=== PATIENT | female | born 1995 | race Two or more races ===

== ENCOUNTER 2020-08-09 11:36 | Outpatient (REF) | payer OTHER, SELFPAY ==
[2020-08-09 12:26] LABS: MANUAL DIFF FLAG NO
[2020-08-09 12:39] LABS: Basophils Absolute Auto 0.1 X10*3/uL (0.0-0.2); Eosinophils Absolute Auto 0.1 X10*3/uL (0.0-0.4); Eosinophils Percent Auto 2.2 % (0-4); Hematocrit 39.3 % (37-47); Hemoglobin 12.7 g/dl (12.0-16.0); Imm Gran Abs Auto 0.01 X10*3/uL (0.00-0.03); Imm Gran Pct Auto 0.2 % (0.0-0.4); Lymphocytes Absolute Auto 2.2 X10*3/uL (1.2-4.9); Lymphocytes Percent Auto 34.7 % (20-40); Mean Corpuscular HGB Conc 32.3 g/dl (31.0-35.0); Mean Corpuscular Hemoglobin 27.8 pg (27.0-33.0); Mean Platelet Volume 10.9 fL (9.4-12.3); Monocytes Absolute Auto 0.4 X10*3/uL (0.1-1.2); Monocytes Percent Auto 5.9 % (2-11); Neutrophils Absolute Auto 3.5 X10*3/uL (2.0-8.3); Platelet Count 283 X10*3/uL (160-400); Red Blood Count 4.57 X10*6/uL (4.20-5.50); White Blood Count 6.3 X10*3/uL (4.8-10.8)
[2020-08-09 12:55] LABS: Anion Gap 13 (12-20); Blood Urea Nitrogen 10 mg/dL (9-16); Calcium 8.9 mg/dL (8.4-10.2); Carbon Dioxide 27 mmol/L (22-29); Chloride 104 mmol/L (96-108); Cholesterol 166 mg/dL; Estimated Glomerular Filt Rate > 60; Glucose Fasting 81 mg/dL (60-99); HDL Cholesterol 43 mg/dL; LDL Cholesterol Calculated 110 mg/dl; Potassium 4.5 mmol/l (3.3-5.1); Sodium 139 mmol/L (135-145); Triglycerides 69 mg/dL
== END 2020-08-09 11:37 | disposition home or self-care (01) ==
LOC: HO.LAB 11:36
PROVIDERS: PCP Nurse Practitioner Family; Visit Provider Nurse Practitioner Family
DX: Z00.00 Encounter for general adult medical examination without abnormal findings (principal)
CPT/HCPCS: 36415; 80048; 80061; 85025

== ENCOUNTER 2020-08-27 09:05 | Outpatient (REF) | payer OTHER, SELFPAY ==
[2020-08-27 10:14] LABS: MANUAL DIFF FLAG NO
[2020-08-27 10:20] LABS: Basophils Absolute Auto 0.1 X10*3/uL (0.0-0.2); Basophils Percent Auto 1.1 % (0-2); Eosinophils Absolute Auto 0.1 X10*3/uL (0.0-0.4); Eosinophils Percent Auto 2.1 % (0-4); Hemoglobin 12.8 g/dl (12.0-16.0); Imm Gran Abs Auto 0.01 X10*3/uL (0.00-0.03); Imm Gran Pct Auto 0.2 % (0.0-0.4); Lymphocytes Absolute Auto 1.8 X10*3/uL (1.2-4.9); Lymphocytes Percent Auto 31.4 % (20-40); Mean Corpuscular Hemoglobin 27.9 pg (27.0-33.0); Mean Corpuscular Volume 87.1 fL (80-98); Mean Platelet Volume 11.3 fL (9.4-12.3); Monocytes Absolute Auto 0.3 X10*3/uL (0.1-1.2); Monocytes Percent Auto 5.3 % (2-11); Neutrophils Absolute Auto 3.4 X10*3/uL (2.0-8.3); Neutrophils Percent Auto 59.9 % (45-73); Platelet Count 253 X10*3/uL (160-400); Red Blood Count 4.59 X10*6/uL (4.20-5.50); Red Cell Distribution Width 12.8 % (11.0-16.0); White Blood Count 5.6 X10*3/uL (4.8-10.8)
[2020-08-27 10:45] LABS: Alanine Aminotransferase 11 U/L (0-31); Albumin Level 4.6 g/dL (3.5-5.0); Alkaline Phosphatase 85 U/L (39-117); Aspartate Amino Transferase 34 U/L (5-31); Bilirubin Direct < 0.2 mg/dL (0.0-0.5); Bilirubin Total 0.6 mg/dL (0.0-1.0); Cholesterol 169 mg/dL; HDL Cholesterol 46 mg/dL; LDL Cholesterol Calculated 113 mg/dl; Total Protein 7.3 g/dL (6.5-8.0); Triglycerides 51 mg/dL
== END 2020-08-27 09:06 | disposition home or self-care (01) ==
LOC: HO.LAB 09:05
PROVIDERS: PCP Internal Medicine; Visit Provider Nurse Practitioner Family
DX: Z00.00 Encounter for general adult medical examination without abnormal findings (principal)
CPT/HCPCS: 36415; 80061; 80076; 85025

== ENCOUNTER → 2020-09-03 11:46 | Outpatient (BNVA) | payer OTHER, SELFPAY | PROVIDERS: PCP Internal Medicine; Referring Provider Internal Medicine; Visit Provider Internal Medicine Gastroenterology | DX: R94.5 Abnormal results of liver function studies (principal) | CPT/HCPCS: 99211 ==

== ENCOUNTER 2020-09-28 10:14 | Outpatient (REF) | payer OTHER, SELFPAY ==
--- NOTE | 2020-09-28 10:19 | US_ITS ---
EXAMINATION: US ABDOMEN LIMITED CLINICAL INFORMATION: Abnormal results of liver function studies. COMPARISON: Ultrasound abdomen with elastography 07/17/2019. Ultrasound abdomen 11/22/2018. CT abdomen and pelvis 10/22/2016. TECHNIQUE: Real-time imaging of the right upper quadrant abdominal viscera. FINDINGS: PANCREAS: Normal. LIVER: Normal. The liver is normal in size. The liver contour is normal. Parenchymal echogenicity is normal. No focal hepatic lesion. There is no intrahepatic biliary duct dilatation seen. GALLBLADDER: Normal. The gallbladder is physiologically distended without evidence of stones, sludge, polyps, wall thickening or pericholecystic fluid. COMMON BILE DUCT: Normal in caliber measuring 0.4 cm in diameter. RIGHT KIDNEY: Normal. No hydronephrosis. No renal calculi or focal parenchymal lesions. The kidney measures 10.3 cm in maximum dimension. FREE FLUID: None. US/US abdomen limited IMPRESSION: Unremarkable exam.
== END 2020-09-28 10:15 | disposition home or self-care (01) ==
LOC: HO.US 10:14
PROVIDERS: PCP Internal Medicine; Visit Provider Internal Medicine Gastroenterology
DX: R94.5 Abnormal results of liver function studies (principal)
CPT/HCPCS: 76705

== ENCOUNTER 2020-10-18 09:34 | Outpatient (REF) | payer OTHER, SELFPAY ==
[2020-10-18 10:11] LABS: MANUAL DIFF FLAG NO
[2020-10-18 10:12] LABS: Basophils Absolute Auto 0.1 X10*3/uL (0.0-0.2); Basophils Percent Auto 0.7 % (0-2); Eosinophils Absolute Auto 0.1 X10*3/uL (0.0-0.4); Eosinophils Percent Auto 1.3 % (0-4); Hematocrit 40.6 % (37-47); Imm Gran Abs Auto 0.02 X10*3/uL (0.00-0.03); Imm Gran Pct Auto 0.3 % (0.0-0.4); Lymphocytes Absolute Auto 1.9 X10*3/uL (1.2-4.9); Lymphocytes Percent Auto 26.8 % (20-40); Mean Corpuscular Hemoglobin 27.4 pg (27.0-33.0); Mean Corpuscular Volume 85.5 fL (80-98); Monocytes Absolute Auto 0.4 X10*3/uL (0.1-1.2); Monocytes Percent Auto 5.6 % (2-11); Neutrophils Absolute Auto 4.6 X10*3/uL (2.0-8.3); Neutrophils Percent Auto 65.3 % (45-73); Platelet Count 265 X10*3/uL (160-400); Red Blood Count 4.75 X10*6/uL (4.20-5.50)
[2020-10-18 10:42] LABS: Cholesterol 137 mg/dL; HDL Cholesterol 38 mg/dL; LDL Cholesterol Calculated 78 mg/dl; Triglycerides 106 mg/dL
[2020-10-18 11:45] LABS: Reflex LDLD? No
== END 2020-10-18 09:35 | disposition home or self-care (01) ==
LOC: HO.LAB 09:34
PROVIDERS: PCP Internal Medicine; Visit Provider Nurse Practitioner Family
DX: Z00.00 Encounter for general adult medical examination without abnormal findings (principal); Z13.220 Encounter for screening for lipoid disorders
CPT/HCPCS: 36415; 80061; 85025

== ENCOUNTER → 2020-12-10 09:48 | Outpatient (BNVA) | payer OTHER, SELFPAY | PROVIDERS: PCP Internal Medicine; Visit Provider Internal Medicine Gastroenterology ==

== ENCOUNTER → 2021-04-15 10:58 | Outpatient (BNVA) | payer OTHER, SELFPAY | PROVIDERS: PCP Internal Medicine; Visit Provider Internal Medicine Gastroenterology ==

== ENCOUNTER 2021-04-20 12:52 | Outpatient (REF) | payer OTHER, SELFPAY ==
--- NOTE | 2021-04-20 12:58 | EEG_ITS ---
This is a 16-channel EEG with an EKG lead. The patient is reported awake during the tracing. Background EEG rhythm is about 10 Hz, 5 to 70 mcV posteriorly, and lower amplitude fast anteriorly. Intermittently, patient transitioned into drowsiness with disappearance of symmetric alpha and low amplitude mixed theta, beta rhythm. No definite asymmetry or paroxysmal tendency is noted. No definite focality is noted. Photic stimulation does not produce any significant abnormality. Hyperventilation is not performed. Cardiac lead does not reveal any significant abnormality. IMPRESSION: No significant abnormality noted on this EEG. MD CECIL Infante/LIAT / [id number]
== END 2021-04-20 12:53 | disposition home or self-care (01) ==
LOC: HO.NEURO 12:52
PROVIDERS: PCP Internal Medicine; Visit Provider Internal Medicine
DX: R55 Syncope and collapse (principal)
CPT/HCPCS: 95816

== ENCOUNTER 2021-04-25 10:23 | Outpatient (REF) | payer OTHER, SELFPAY ==
[2021-04-25 12:01] LABS: MANUAL DIFF FLAG NO
[2021-04-25 12:18] LABS: Basophils Percent Auto 0.9 % (0-2); Eosinophils Absolute Auto 0.1 X10*3/uL (0.0-0.4); Eosinophils Percent Auto 2.5 % (0-4); Hematocrit 39.5 % (37-47); Hemoglobin 12.5 g/dl (12.0-16.0); Lymphocytes Absolute Auto 1.6 X10*3/uL (1.2-4.9); Lymphocytes Percent Auto 37.7 % (20-40); Mean Corpuscular HGB Conc 31.6 g/dl (31.0-35.0); Mean Corpuscular Hemoglobin 27.4 pg (27.0-33.0); Mean Corpuscular Volume 86.4 fL (80-98); Monocytes Absolute Auto 0.3 X10*3/uL (0.1-1.2); Monocytes Percent Auto 5.8 % (2-11); Neutrophils Absolute Auto 2.3 X10*3/uL (2.0-8.3); Neutrophils Percent Auto 53.1 % (45-73); Platelet Count 251 X10*3/uL (160-400); Red Blood Count 4.57 X10*6/uL (4.20-5.50); White Blood Count 4.3 X10*3/uL (4.8-10.8)
[2021-04-25 12:22] LABS: INTERNATIONAL NORM RATIO 1.1 (0.9-1.1); Prothrombin Time 12.6 SEC (10.8-13.0)
[2021-04-25 12:44] LABS: Alanine Aminotransferase 9 U/L (0-31); Albumin Level 4.3 g/dL (3.5-5.0); Alkaline Phosphatase 72 U/L (39-117); Anion Gap 8 (12-20); Aspartate Amino Transferase 33 U/L (5-31); Bilirubin Total 0.4 mg/dL (0.0-1.0); Blood Urea Nitrogen 13 mg/dL (9-16); Calcium 8.9 mg/dL (8.4-10.2); Carbon Dioxide 28 mmol/L (22-29); Chloride 106 mmol/L (96-108); Estimated Glomerular Filt Rate > 60; Glucose Random 88 mg/dL (60-115); Potassium 4.5 mmol/L (3.3-5.1); Sodium 137 mmol/L (135-145)
[2021-04-25 13:05] LABS: Ferritin 26 ng/mL (10-122)
[2021-04-29 21:22] LABS: Transglutaminase Ab IgG 1 U/mL; Transglutaminase IgA 1 U/mL
== END 2021-04-25 10:24 | disposition home or self-care (01) ==
LOC: HO.LAB 10:23
PROVIDERS: Absent Provider Internal Medicine Gastroenterology; PCP Internal Medicine; Referring Provider Internal Medicine; Visit Provider Internal Medicine
DX: G89.29 Other chronic pain (principal); R10.33 Periumbilical pain; R94.5 Abnormal results of liver function studies; K75.81 Nonalcoholic steatohepatitis (NASH); R55 Syncope and collapse; I95.0 Idiopathic hypotension
CPT/HCPCS: 36415; 80053; 82728; 83516; 85025; 85610; 93005; 99202

== ENCOUNTER 2021-05-03 09:16 | Outpatient (REF) | payer OTHER, SELFPAY ==
--- NOTE | ~2021-05-03 | CT_ITS ---
EXAMINATION: CT HEAD WITHOUT CONTRAST CLINICAL INFORMATION: Syncope and collapse COMPARISON: None TECHNIQUE: Contiguous axial imaging was performed from the skull base to vertex without intravenous administration of contrast. This CT examination was performed using dose optimization techniques as appropriate, variously including the following: *Automated exposure control *Adjustment of mA and/or kV according to patient size (this includes techniques or standardized protocols for targeted exams where dose is matched to indication/reason for exam; i.e. extremities or head) *Use of iterative reconstruction technique DLP: 659 mGy-cm FINDINGS: There is no evidence of acute intracranial hemorrhage or territorial infarction. No abnormal mass effect or midline shift is seen. Phan to white matter differentiation is well preserved. No extra-axial fluid collections are identified. The ventricles are normal in size. There is no abnormal attenuation within the brain parenchyma. The osseous structures and soft tissues are normal. The mastoid air cells and visualized portions of the paranasal sinuses are well aerated. CT/CT head/brain wo con IMPRESSION: No acute intracranial pathology.
--- NOTE | ~2021-05-03 | US_ITS ---
EXAMINATION: US EXTRACRANIAL CAROTID DUPLEX, BILATERAL CLINICAL INFORMATION: Syncope and collapse COMPARISON: None TECHNIQUE: Real-time ultrasound and Doppler techniques (integrating B-mode 2-D vascular images, Doppler spectral analysis and color-flow Doppler imaging) were utilized to interrogate the extracranial carotid arteries, the vertebral arteries and proximal subclavian arteries bilaterally. The degree of stenosis is determined by criteria similar to NASCET. FINDINGS: Right Side: 1. There is no atherosclerotic plaque seen in the bifurcation/proximal ICA region. 2. The common carotid artery PSV proximally is 118 cm/s and distally 101 cm/s. 3. The proximal internal carotid artery velocities are 100 cm/s systolic and 38 cm/s diastolic. 4. The proximal external carotid artery PSV is 97 cm/s. 5. The vertebral artery shows antegrade flow. 6. The subclavian artery waveforms are normal. Left Side: 1. There is no atherosclerotic plaque seen in the bifurcation/proximal ICA region. 2. The common carotid artery PSV proximally is 125 cm/s and distally distal 117 cm/s. 3. The proximal internal carotid artery velocities are 107 cm/s systolic and 39 cm/s diastolic. 4. The proximal external carotid artery PSV is 86 cm/s. 5. The vertebral artery shows antegrade flow. 6. The subclavian artery waveforms are normal. US/US carotid duplex BI IMPRESSION: Normal exam.
--- NOTE | 2021-05-03 09:57 | CA_ITS ---
Transthoracic Echocardiogram Patient (Last, First, Middle): Ora Hernandez, Gender: Female Date of : 1995 Age: 25 Procedure Date: 05/03/2021 Procedure Type: Transthoracic Echocardiogram Location: OP Height: 160.02 cm Weight: 56.7 kg BSA: 1.58 m2 Heart Rate: bpm BP: 100 / 60 mmHg Vacuum Tester Cans: STEWART Referring MD: Casandra Mars MD Symptoms: R55 - Syncope and collapse Study Quality: Good ECG Rhythm: Sinus Conclusions: - The left ventricular systolic function is normal. The visually estimated ejection fraction is between 55-60%. - No obvious valvular pathology seen on this study. Findings Left Ventricle Normal left ventricular cavity size. There is normal left ventricular wall thickness. The left ventricular systolic function is normal. The visually estimated ejection fraction is between 55-60%. There is no evidence of regional wall motion abnormalities. Diastolic function is normal for age. Right Ventricle Normal right ventricular cavity size and systolic function. Atria Both atria are normal in size. Aortic Valve There is a normal trileaflet aortic valve. There is no aortic valve stenosis. There is no aortic valve regurgitation. Mitral Valve The mitral valve appears normal. There is trace mitral valve regurgitation. There is no mitral valve stenosis. Pulmonic Valve The pulmonic valve was not well visualized. Tricuspid Valve Normal tricuspid valve structure. There is trace tricuspid valve regurgitation. The pulmonary artery systolic pressure is normal. Great Vessels The aortic annulus, sinuses of valsalva, and asc aorta are normal in size. Venous The inferior vena cava is normal in size and collapses greater than 50% with inspiration. Pericardium/Pleural There is no evidence of pericardial effusion. Prior Study Comparison No prior study available for comparison. Recommendations, Care & Conclusions No obvious valvular pathology seen on this study. Measurements 2D Linear Measurements IVSd: 0.73 0.6-0.9/0.6-1.0 cm LVIDd: 4.58 3.9-5.3/4.2-5.9 cm LVIDd Index: 2.90 2.4-3.2/2.2-3.1 cm/m2 LVIDs: 3.01 2.0-3.6 cm LVPWd: 0.67 0.7-1.1 cm Ao Root: 2.30 2.1-3.5 cm LA Diam: 3.00 2.7-3.8/3.0-4.0 cm LAIDs Index: 1.90 1.5-2.3 cm/m2 LV Mass: 121.82 67-162/88-224 g LV Mass Index: 77.10 43-95/49-115 g/m2 LVOT Diam: 1.90 3.0+(-)1.3 cm 2D Systolic Function EF 4C: 65.60 >55% EF 2C: 64.40 >55% EF BiP: 66.40 >55% Mitral Valve MV Pk E: 0.97 MV PK A: 0.45 MV Decel Time: 188.00 E/A: 2.20 E'Lateral: 16.10 E'Medial: 11.60 E/E' Med: 8.30 E/E' Lat: 6.00 PHT: 55.00 MVA PHT: 4.00 Decel [place]: 5.15 Aortic Valve AoV Pk Myron: 1.11 AoV Pk Grad: 5.00 LVOT LVOT Pk Myron: 1.02 LVOT Mn Myron: 0.66 LVOT VTI: 0.20 LVOT Pk Grad: 4.00 LVOT Mn Grad: 2.00 LVOT Diam: 1.90 LVOT Area: 2.84 Diastolic Function MV Pk E: 0.97 MV Pk A: 0.45 E/A: 2.20 E'Medial: 11.60 E/E' Med: 8.30 E' Laterial: 16.10 E/E' Lat: 6.00 Tricuspid Valve TR Pk Myron: 2.21 TR Pk Grad: 20.00 RA Press: 3.00 RVSP: 23.00 Great Vessels Aorta Ao Root-2D: 2.30 2.0-3.7 cm Ao Asc: 2.00 2.1-3.4 cm Updated in Other Vendor System with Status of Final Alan Jaimes MD electronically signed on 05/03/2021 11:56:25 AM with status of Final
== END 2021-05-03 09:17 | disposition home or self-care (01) ==
LOC: HO.CT 09:16
PROVIDERS: Visit Provider Internal Medicine
DX: R55 Syncope and collapse (principal)
CPT/HCPCS: 70450; 93306; 93880

== ENCOUNTER → 2021-06-03 13:52 | Outpatient (REF) | payer OTHER, SELFPAY ==
--- NOTE | 2021-06-03 13:56 | ECG_ITS ---
Hook-up date: 2021-06-03 14:14:00 Duration: 47:59:00 Test Indications: SYNCOPE AND COLLAPSE Medications: 250744 QRS complexes * Ventricular ectopics which represent % of total QRS comp. * Supraventricular ectopics which represent % of total QRS comp. * Paced QRS complexs which represent % of total QRS comp. VENTRICULAR ECTOPY * Isolated * Bigeminal Cycles * Couplets * Runs * Beats in Runs * Beats LONGEST at * BPM at :: -- * Beats FASTEST at * BPM at :: -- SUPRAVENTRICULAR ECTOPY * Isolated * Couplets * Runs * Beats in Runs * Beats LONGEST at * BPM at :: -- * Beats FASTEST at * BPM at :: -- HEART RATES 57 MIN at 05:54:42 2021-06-04 80 AVG 141 MAX at 13:02:38 2021-06-04 LONGEST RR 1.2000 secs at 05:56:23 2021-06-04 S-T LEVELS Channel 1 - 128 mm at 14:14:00 2021-06-03 - 128 mm at 14:14:00 2021-06-03 Channel 2 - 128 mm at 14:14:00 2021-06-03 - 128 mm at 14:14:00 2021-06-03 Channel 3 - 128 mm at 03:33:31 -- - 128 mm at 03:33:31 Underlying rhythm is sinus; Average ventricular rate 80/min; range 57-141/min; About 22% of the time, rate >100/min; No significant ectopy or arrhythmias; Patient did not report any symptoms in the diary Referred By: Casandra Mars Overread By: JEFF DELA CRUZ
== END ==
LOC: HO.CARD 13:52
PROVIDERS: PCP Hospitalist; Visit Provider Internal Medicine
DX: R55 Syncope and collapse (principal)
CPT/HCPCS: 93225; 93226

== ENCOUNTER → 2021-07-12 10:22 | Outpatient (BNVA) | payer OTHER, SELFPAY | PROVIDERS: PCP Hospitalist; Referring Provider Hospitalist; Visit Provider Internal Medicine | DX: I95.0 Idiopathic hypotension (principal); R55 Syncope and collapse | CPT/HCPCS: 99212 ==

== ENCOUNTER → 2021-10-11 10:26 | Outpatient (BNVA) | payer OTHER, SELFPAY | PROVIDERS: PCP Internal Medicine; Visit Provider Internal Medicine Gastroenterology ==

== ENCOUNTER 2021-10-25 10:09 | Outpatient (REF) | payer OTHER, SELFPAY ==
[2021-10-25 10:29] LABS: MANUAL DIFF FLAG NO
[2021-10-25 10:32] LABS: Basophils Percent Auto 0.8 % (0-2); Eosinophils Absolute Auto 0.1 X10*3/uL (0.0-0.4); Eosinophils Percent Auto 2.5 % (0-4); Hematocrit 38.7 % (37.0-47.0); Hemoglobin 12.4 g/dl (12.0-16.0); Imm Gran Abs Auto 0.01 X10*3/uL (0.00-0.03); Imm Gran Pct Auto 0.2 % (0.0-0.4); Lymphocytes Absolute Auto 1.5 X10*3/uL (1.2-4.9); Lymphocytes Percent Auto 28.8 % (20-40); Mean Corpuscular Hemoglobin 27.9 pg (27.0-33.0); Mean Corpuscular Volume 87.2 fL (80.0-98.0); Monocytes Absolute Auto 0.3 X10*3/uL (0.1-1.2); Monocytes Percent Auto 5.1 % (2-11); Neutrophils Absolute Auto 3.3 x10*3/uL (2.0-8.3); Neutrophils Percent Auto 62.6 % (45-73); Platelet Count 236 X10*3/uL (160-400); Red Blood Count 4.44 X10*6/uL (4.20-5.50); Red Cell Distribution Width 13.2 % (11.0-16.0); White Blood Count 5.3 X10*3/uL (4.8-10.8)
[2021-10-25 12:38] LABS: Alanine Aminotransferase 12 U/L (0-31); Albumin Level 4.4 g/dL (3.5-5.0); Alkaline Phosphatase 67 U/L (39-117); Anion Gap 9 (12-20); Aspartate Amino Transferase 33 U/L (5-31); Bilirubin Total 0.3 mg/dL (0.0-1.0); Blood Urea Nitrogen 11 mg/dL (9-16); Calcium 9.1 mg/dL (8.4-10.2); Carbon Dioxide 25 mmol/L (22-29); Chloride 107 mmol/L (96-108); Estimated Glomerular Filt Rate > 60; Glucose Random 102 mg/dL (60-115); Potassium 4.4 mmol/L (3.3-5.1); Sodium 137 mmol/L (135-145); Total Protein 7.1 g/dL (6.5-8.0)
[2021-10-27 11:36] LABS: Alpha 1 Anti-trypsin 142 mg/dL (83-199); Ceruloplasmin 31 mg/dL (18-53); Immunoglobulin G 1132 mg/dL (600-1640)
[2021-10-27 15:22] LABS: Transglutaminase Ab IgG <1.0 U/mL; Transglutaminase IgA <1.0 U/mL
[2021-10-28 22:01] LABS: Smooth Muscle Antibody <20 U (<20)
[2021-10-30 13:27] LABS: Liver Kidney Microsomal Ab <=20.0 U (<=20.0)
[2021-10-31 11:16] LABS: Vitamin A 31 mcg/dL (38-98)
[2021-11-01 13:27] LABS: Soluble Liver Ag Autoantibody <20.1 U (0.0-20.0)
[2021-11-01 13:51] LABS: Aldolase 2.7 U/L (<=8.1)
[2021-11-01 14:11] LABS: Vitamin C 0.6 mg/dL (0.3-2.7)
== END 2021-10-25 10:10 | disposition home or self-care (01) ==
LOC: HO.LAB 10:09
PROVIDERS: PCP Internal Medicine; Visit Provider Internal Medicine Gastroenterology
DX: R94.5 Abnormal results of liver function studies (principal); K75.81 Nonalcoholic steatohepatitis (NASH); K52.839 Microscopic colitis, unspecified; G89.29 Other chronic pain; R10.33 Periumbilical pain; Z11.1 Encounter for screening for respiratory tuberculosis
CPT/HCPCS: 36415; 80053; 82085; 82103; 82180; 82390; 82550; 82784; 83516; 83520; 84590; 85025; 86255; 86376

== ENCOUNTER 2022-01-22 13:08 | Emergency (ER) | payer OTHER, SELFPAY ==
--- NOTE | ~2022-01-22 | XR_ITS ---
EXAMINATION: XR CHEST CLINICAL INFORMATION: Cough and chest wall pain COMPARISON: None TECHNIQUE: 2 views of the chest were obtained. FINDINGS: No significant abnormality is noted involving the heart, lungs, mediastinum, bony thorax or soft tissues. XR/XR chest 2V IMPRESSION: Unremarkable examination.
[2022-01-22 13:43] VITALS: BP 109/63; PULSE 90; RESP 16; TEMP 37.2; O2SAT 99; BMI 22.1
[2022-01-22 14:03] LABS: COVID-19 Test Negative (Negative); IDNOW Serial# 16C4AD1C
[2022-01-22 14:06] LABS: IDNOW Serial# 08D9AD1C; Influenza A Negative (Negative); Influenza B2 Negative (Negative); Strep A Nucleic Acid Negative (Negative)
--- NOTE | 2022-01-22 14:24 | ED_ITS ---
HPI - URI/Sore Throat General Chief Complaint: Upper Respiratory Symptoms Stated Complaint: Sore throat/headache Time Seen by Provider: 01/22/22 13:33 Source: patient and family Mode of arrival: ambulatory Limitations: language barrier (Malagasy Speaking) History of Present Illness HPI Narrative: 26-year-old female with a past medical history of idiopathic hypotension, abnormal LFTs and migraine headaches presenting to the ED with URI symptoms since Sunday/ where she was seen at [facility] for sore throat reports that she was given 500 mg of amoxicillin b.i.d. and she is taking as prescribed although she reports her sore throat is better and now she has been having intermittent migraine headaches, increased nasal congestion/ rhinorrhea and sinus pressure pain, dry cough and body aches. She reports associated chills. She reports mom had similar symptoms approximately a week ago. She denies any measured fevers, dizziness, neck pain / stiffness, changes in vision, shortness of breath, dyspnea on exertion, orthopnea, palpitations, chest pain, paresthesias, nausea/vomiting /diarrhea constipation or abdominal pain, lower extremity edema or calf tenderness, recent travel or any other symptoms complaints or concerns at this time. MD elicited complaint: cough, rhinorrhea, nasal congestion and sinus pain Onset (ago): day(s) ( Past few days worse today) Consistency: constant and progressively worsening Severity: moderate Description of mucous: clear, watery and yellow Able to tolerate fluids by mouth: Yes Exacerbating factors: nothing Relieving factors: nothing Context: sick contacts Associated symptoms: chills, myalgias, headache, rhinorrhea, nasal congestion and cough Treatments prior to arrival: none Related Data Previous Rx's Medication Instructions Recorded amitriptyline 10 mg tablet 10 mg PO BEDTIME 90 Days #90 tab 09/13/21 sumatriptan succinate 50 mg tablet 50 mg PO Q2-4H PRN 30 Days #9 tab 09/13/21 albuterol sulfate 90 mcg/actuation 1 inh INHALATION QID PRN #8.5 g 01/22/22 aerosol inhaler amoxicillin 875 mg-potassium 1 tab PO BID 10 Days #20 tab 01/22/22 clavulanate 125 mg tablet codeine 10 mg-guaifenesin 100 mg/5 5 ml PO Q6H PRN #120 ml 01/22/22 mL oral liquid (Guaifenesin AC) cyclobenzaprine 10 mg tablet 10 mg PO Q8H PRN #14 tab 01/22/22 prednisone 20 mg tablet 40 mg PO DAILY 5 Days #10 tab 01/22/22 Allergies Allergy/AdvReac Type Severity Reaction Status Date / Time No Known Allergies Allergy Verified 10/11/21 10:27 [No Known Allergies*] Review of Systems Review of Systems: Constitutional : No Weight loss, No Fever, + Chills, No Night Sweats, + Fatigue, + Malaise ENT/Mouth : No Hearing loss, No Ear Pain, + Nasal Congestion, + Sinus Pain, No Hoarseness, No sore throat, + Rhinorrhea, No Swallowing Difficulty Eyes: No Eye Pain, No Swelling, No Redness, No Foreign Body, No Discharge, No Vision Changes Cardiovascular : No Chest Pain, No SOB, No Dyspnea on Exertion, No Orthopnea, No Edema, No Palpitations Respiratory : + Cough, No Sputum, No Wheezing, No Smoke Exposure, No Dyspnea Gastrointestinal : No Nausea, No Vomiting, No Diarrhea, No Constipation, No abdominal Pain, No Hematochezia, No Melena Genitourinary : no irregular bleeding, No Dysuria, No Urinary Frequency, No Hematuria, No Urinary Incontinence, No Urgency, No Flank Pain, No Urinary Flow Changes, No Hesitancy Musculoskeletal : No joint pain, + Myalgias, No Joint Swelling Skin : No Skin Lesions, No rash Neuro : No Weakness, No Numbness, No Paresthesias, No Loss of Consciousness, No Dizziness, No Headache Psych : No Anxiety/Panic, No Depression, No SI/HI/AH/VH, No Social Issues, Heme/Lymph: No Bruising, No Bleeding,No Lymphadenopathy Endocrine : No Polyuria, No Polydipsia, No Temperature Intolerance Yes all other systems are reviewed and are negative [facility] Past Medical History Attestation statement: The following information was validated with the patient. Medical History Left ear pain Migraine Physical exam Syncope Surgical History History of section History of tubal ligation Family History Family History Father Asthma Mother No problems noted. Paternal Uncle Colon cancer Social History Social History Household Members: Children Housing: Apartment Alcohol intake: never Patient Tobacco Use Status: Never used Tobacco e-Cigarette/Vaping Use: Never Used Second Hand Smoke Exposure: No Advance Directives: No Advance Directives Information Provided: Yes Patient : No service: No Current occupational status: employed Current occupational exposures/hazards: No Physical Exam Vital Signs: Vital Signs: Last Vital Signs Temp 98.9 F 01/22/22 13:43 Pulse 90 01/22/22 13:43 Resp 16 01/22/22 13:43 BP 109/63 01/22/22 13:43 Pulse Ox 99 01/22/22 13:43 BMI result Body Mass Index 22.1 vital signs have been reviewed as normal and appeared to be correct. Blood pressure normal. Heart rate normal. Respiration rate normal. Temperature normal. Oxygen saturation normal. Appearance: Alert. Oriented X3. No acute distress. Head: Normal external exam. Normocephalic. Atraumatic. Eyes: PERRLA. EOMI. Conjunctiva and sclera normal. Eyelids normal. ENT: EAC normal. TM's Normal. Pharynx normal. Uvula midline. Moist mucous membranes. patient with sinus pressure pain. No lesions/ulcerations or masses noted on the tongue. Normal voice. No trismus noted. No drooling noted. No muffled voice noted. Neck: Normal inspection. Neck supple. FROM. No adenopathy. Thyroid Normal. No tracheal deviation noted. No crepitus is noted. No meningeal signs. No neck mass noted. No signs of trauma noted. CVS: Normal heart rate and rhythm. Heart sound normal. Pulses normal throughout. No murmurs/rales/gallops. Respiratory: No respiratory distress. Painless inspiration. Breath sounds normal. No wheezes/rales/rhonchi noted. Chest nontender. No crepitus is noted. No signs of trauma noted. No accessory muscle usage noted or decreased air movement noted. No signs of trauma. Abdomen: Soft and nontender. Bowel sounds normal in all 4 quadrants. No distention noted. No organomegaly noted. No visible injury noted. Back: No CVA tenderness. Full range of motion noted. Nontender. No signs of trauma. Patient neuro intact bilaterally and distally on all 4 extremities. Patient's reflexes intact bilaterally and distally on all 4 extremities. No rashes/lesion/induration/fluctuance or signs of infection noted. Skin: Skin warm and dry. Normal skin color. Normal skin turgor. No rashes/lesions/lacerations noted. Extremities: No lower extremity edema. No calf tenderness is noted. Extremities exhibit normal range of motion and nontender. Neuro: Oriented X 3. No motor deficit. No sensory deficit. Reflexes normal. Normal steady gait. No focal neuro deficits noted. CN's II-XII intact bilaterally? Vascular: + radial pulses/+ 2 distal pedal pulses/+2 dorsalis pedis b/l. Normal cap refill. No cyanosis noted to upper extremity nails and lower extremity toes nails. Course Course Course Narrative: 26-year-old female with a past medical history of idiopathic hypotension, abnormal LFTs and migraine headaches presenting to the ED with URI symptoms since Sunday/ where she was seen at [facility] for sore throat reports that she was given 500 mg of amoxicillin b.i.d. and she is taking as prescribed although she reports her sore throat is better and now she has been having intermittent migraine headaches, increased nasal congestion/ rhinorrhea and sinus pressure pain, dry cough and body aches. She reports associated chills. She reports mom had similar symptoms approximately a week ago. Patient negative for COVID/fl and strep. Chest x-ray negative. Patient most likely sinusitis/ bronchitis. Will DC home with different antibiotics and symptomatic treatment instructions return if any new or worsening symptoms to follow up with primary care provider. Patient understands agrees with this plan. MDM - URI/Sore Throat Medical Records Attestation: I reviewed the patient's medical records. Lab Data Attestation: I reviewed the patient's lab results. Labs: Lab Results 01/22/22 01/22/22 01/22/22 Range/Units 13:41 13:41 13:41 COVID-19 (JIMMY) Negative (Negative) COVID-19 Clin Com See Note Influenza Type A ([place]) Negative (Negative) Influenza Type B ([place]) Negative (Negative) Influenza A & B Note See Note S. pyogenes GrpA [place] Negative (Negative) Imaging Data Chest x-ray: Attestation: I personally reviewed and interpreted this imaging study as follows: Radiologist's impression: FINDINGS: No significant abnormality is noted involving the heart, lungs, mediastinum, bony thorax or soft tissues. XR/XR chest 2V IMPRESSION: Unremarkable examination. Discharge Plan Discharge Clinical Impression: Sinusitis, Bronchitis Patient Disposition: Home, Self-Care Instructions: Sinusitis (ED), Acute Bronchitis (ED) Prescriptions: New cyclobenzaprine 10 mg tablet 10 mg PO Q8H PRN (Reason: Muscle spasm) Qty: 14 0RF codeine-guaifenesin [Guaifenesin AC] 10-100 mg/5 mL liquid 5 ml PO Q6H PRN (Reason: cold symptoms) Qty: 120 0RF albuterol sulfate 90 mcg/actuation HFA aerosol inhaler 1 inh inhalation QID PRN (Reason: shortness of breath or wheezing) Qty: 8.5 0RF prednisone 20 mg tablet 40 mg PO DAILY 5 Days Qty: 10 0RF amoxicillin-pot clavulanate 875-125 mg tablet 1 tab PO BID 10 Days Qty: 20 0RF No Action amitriptyline 10 mg tablet 10 mg PO BEDTIME 90 Days Qty: 90 1RF sumatriptan succinate 50 mg tablet 50 mg PO Q2-4H PRN (Reason: migraine headache) 30 Days Qty: 9 4RF Rx Instructions: do not exceed 4 doses per 24 hrs Referrals: Casandra Wilson MD [Primary Care Provider] - 2 days Stand Alone Forms: Work/School Release Print Language: Malagasy
[2022-01-22] MEDS: guaiFEN/Codeine SF 200/20/10ML 10 ML LIQUID PO (14:31)
[2022-01-22] MEDS: predniSONE 20 MG TABLET 60 MG PO (14:31)
[2022-01-22] MEDS: Albuterol Sulfate 90 MCG 8 GM INHALER 2 PUFF INHALE (14:38)
[2022-01-22 14:39] VITALS: PULSE 90; RESP 20; O2SAT 99
[2022-01-22] MEDS: Ibuprofen 800 MG TABLET PO (14:44)
== END 2022-01-22 14:47 | disposition home or self-care (01) ==
PROVIDERS: Physician Assistant Medical; Emergency Provider Emergency Medicine; PCP Internal Medicine
DX: J32.9 Chronic sinusitis, unspecified (principal); J40 Bronchitis, not specified as acute or chronic; M79.10 Myalgia, unspecified site; J02.8 Acute pharyngitis due to other specified organisms; R51.9 Headache, unspecified; R05.9 Cough, unspecified; Z20.822 Contact with and (suspected) exposure to COVID-19; Z79.899 Other long term (current) drug therapy
CPT/HCPCS: 71046; 87502; 87635; 87651; 94640; 94664; 99283

== ENCOUNTER 2022-03-05 12:19 | Emergency (ER) | payer OTHER, SELFPAY ==
[2022-03-05 12:20] VITALS: BP 108/63; PULSE 109; RESP 19; TEMP 37.2; O2SAT 99; BMI 23.0
--- NOTE | 2022-03-05 12:40 | ED_ITS ---
HPI - URI/Sore Throat General Chief Complaint: Fever Stated Complaint: Fever/Body aches/Sore throat Time Seen by Provider: 03/05/22 12:29 Source: patient Mode of arrival: ambulatory Limitations: no limitations History of Present Illness HPI Narrative: Patient presents emergency department for evaluation of fever, T-max 102 degrees yesterday night, body aches, sore throat. Symptom onset was 1 day ago. Reports that her child is ill with similar symptoms. She has tried taking DayQuil with some relief of her symptoms. She has not been vaccinated for influenza. She has received 2 doses of [employer] vaccine for COVID-19. Denies nasal congestion, cough, shortness of breath, difficulty breathing, chest pain, palpitations, nausea, vomiting, abdominal pain, dysuria, generalized weakness, possibility of . MD elicited complaint: fever and sore throat Onset (ago): day(s) Consistency: constant Severity: mild Able to tolerate fluids by mouth: Yes Exacerbating factors: swallowing Related Data Previous Rx's Medication Instructions Recorded albuterol sulfate 90 mcg/actuation 1 inh INHALATION QID PRN #8.5 g 01/22/22 aerosol inhaler amitriptyline 10 mg tablet 10 mg PO BEDTIME 90 Days #90 tab 01/22/22 amoxicillin 875 mg-potassium 1 tab PO BID 10 Days #20 tab 01/22/22 clavulanate 125 mg tablet codeine 10 mg-guaifenesin 100 mg/5 5 ml PO Q6H PRN #120 ml 01/22/22 mL oral liquid (Guaifenesin AC) cyclobenzaprine 10 mg tablet 10 mg PO Q8H PRN #14 tab 01/22/22 prednisone 20 mg tablet 40 mg PO DAILY 5 Days #10 tab 01/22/22 sumatriptan succinate 50 mg tablet 50 mg PO Q2-4H PRN 30 Days #9 tab 01/22/22 oseltamivir 75 mg capsule (Tamiflu) 75 mg PO Q12H 5 Days #10 cap 03/05/22 Allergies Allergy/AdvReac Type Severity Reaction Status Date / Time No Known Allergies Allergy Verified 01/26/22 09:39 [No Known Allergies*] Review of Systems Review of Systems: Constitutional: Positive fever. No weakness. No fatigue. Positive body aches ENT/ Mouth: No Ear Pain, No Nasal Congestion, positive sore throat, No Rhinorrhea, No Swallowing Difficulty Skin: No rash or itching. Cardiovascular: No chest pain. No palpitations. Respiratory: No shortness of breath. No cough. No sputum production. Gastrointestinal: No nausea, vomiting or diarrhea. No abdominal pain. Genitourinary: No burning micturition. No urinary frequency or incontinence. Neurologic: No headache. No dizziness. No syncope. Musculoskeletal: No muscle pain. No back pain. No joint pain or stiffness. Yes all other systems are reviewed and are negative [facility] Past Medical History Attestation statement: The following information was validated with the patient. Source: old records reviewed Medical History Acute bronchitis Hospital discharge follow-up Left ear pain Migraine Physical exam Syncope Surgical History History of section History of tubal ligation Family History Family History Father Asthma Mother No problems noted. Paternal Uncle Colon cancer Social History Social History Household Members: Children Housing: Apartment Alcohol intake: never Patient Tobacco Use Status: Never used Tobacco e-Cigarette/Vaping Use: Never Used Second Hand Smoke Exposure: No Advance Directives: No Advance Directives Information Provided: No Patient : No service: No Current occupational status: employed Current occupational exposures/hazards: No Cognitive needs: No Hearing needs: No Vision needs: No Physical Exam Vital Signs: Vital Signs: Last Vital Signs Temp 99 F 03/05/22 12:20 Pulse 109 H 03/05/22 12:20 Resp 19 03/05/22 12:20 BP 108/63 03/05/22 12:20 Pulse Ox 99 03/05/22 12:20 BMI result Body Mass Index 23.0 Vital signs have been reviewed as normal and appeared to be correct. Blood pressure normal.? Tachycardia.? Respiration rate normal. Temperature normal.? Oxygen saturation normal. Appearance: Alert.?Oriented to person, place and time. No acute distress.?Normal affect. Eyes: Pupils equal, round and reactive to light.? ENT: Pharynx erythematous, no exudate, no tonsillar hypertrophy. Neck: Normal inspection.? Neck supple.?? CVS: Heart sounds normal. Normal heart rate and rhythm.? Pulses normal.?? Respiratory: No respiratory distress.? Lung sounds clear to auscultation bilaterally?? Abdomen: Soft and non-tender. Normoactive bowel sounds.? Skin: Skin warm and dry.? Normal skin color.? Extremities: No lower extremity edema. Neuro: Moves all extremities spontaneously. Sensation intact bilaterally. Ambulates with normal steady gait. Course Course Course Narrative: Patient is a 26-year-old female presenting for evaluation upper respiratory symptoms with fever x2 days. Not consistent with peritonsillar abscess, retropharyngeal abscess, pneumonia. COVID-19 testing negative. Influenza testing positive. Strep testing negative. Symptoms are most consistent with influenza infection. Discussed plan of care for conservative treatment, rest, hydration, small frequent meals, Tylenol and ibuprofen as needed for fever pain, outpatient follow-up with primary care provider as needed, advised reasons return back to emergency department. All questions were answered patient was discharged home in stable condition. MDM - URI/Sore Throat Medical Records Attestation: I reviewed the patient's medical records. Lab Data Attestation: I reviewed the patient's lab results. Labs: Lab Results 03/05/22 03/05/22 03/05/22 Range/Units 12:29 12:29 12:46 COVID-19 (JIMMY) Negative (Negative) COVID-19 Clin Com See Note Influenza Type A ([place]) Positive A (Negative) Influenza Type B ([place]) Negative (Negative) Influenza A & B Note See Note S. pyogenes GrpA [place] Negative (Negative) Discharge Plan Discharge Clinical Impression: Influenza A Patient Disposition: Home, Self-Care Instructions: Influenza (ED) Additional Instructions: You were offered Tamiflu and accepted, a prescription was sent to your pharmacy. You may alternate between Tylenol and ibuprofen as needed for fever or pain. Be sure to rest. Stay well hydrated. Eat frequent small meals. Follow up with your primary care provider as needed. Denies current emergency department with any new or worsening symptoms or concerns. Prescriptions: New oseltamivir [Tamiflu] 75 mg capsule 75 mg PO Q12H 5 Days Qty: 10 0RF No Action amitriptyline 10 mg tablet 10 mg PO BEDTIME 90 Days Qty: 90 1RF sumatriptan succinate 50 mg tablet 50 mg PO Q2-4H PRN (Reason: migraine headache) 30 Days Qty: 9 4RF Rx Instructions: do not exceed 4 doses per 24 hrs cyclobenzaprine 10 mg tablet 10 mg PO Q8H PRN (Reason: Muscle spasm) Qty: 14 0RF codeine-guaifenesin [Guaifenesin AC] 10-100 mg/5 mL liquid 5 ml PO Q6H PRN (Reason: cold symptoms) Qty: 120 0RF albuterol sulfate 90 mcg/actuation HFA aerosol inhaler 1 inh inhalation QID PRN (Reason: shortness of breath or wheezing) Qty: 8.5 0RF prednisone 20 mg tablet 40 mg PO DAILY 5 Days Qty: 10 0RF amoxicillin-pot clavulanate 875-125 mg tablet 1 tab PO BID 10 Days Qty: 20 0RF Interventions: ED Discharge Assessment Last Done: 03/05/22 13:22 Discharge Date/Time: 03/05/22 13:23
[2022-03-05 12:50] LABS: COVID-19 Test Negative (Negative); IDNOW Serial# 16C4AD1C; Influenza A Positive (Negative); Influenza B2 Negative (Negative)
[2022-03-05 13:01] LABS: IDNOW Serial# 08D9AD1C; Strep A Nucleic Acid Negative (Negative)
== END 2022-03-05 13:23 | disposition home or self-care (01) ==
PROVIDERS: Nurse Practitioner Family; Emergency Provider Emergency Medicine; PCP Internal Medicine
DX: J10.1 Influenza due to other identified influenza virus with other respiratory manifestations (principal); R50.9 Fever, unspecified; M79.10 Myalgia, unspecified site; Z20.822 Contact with and (suspected) exposure to COVID-19; Z79.899 Other long term (current) drug therapy
CPT/HCPCS: 36415; 87502; 87635; 87651; 99283

== ENCOUNTER 2022-03-29 12:41 | Outpatient (REF) | payer OTHER, SELFPAY | END 2022-03-29 12:42 | disposition home or self-care (01) | LOC: HO.LAB 12:41 | PROVIDERS: PCP Internal Medicine; Visit Provider Advanced Practice Midwife | DX: Z01.419 Encounter for gynecological examination (general) (routine) without abnormal findings (principal) | CPT/HCPCS: 88142 ==

== ENCOUNTER 2022-04-03 11:49 | Outpatient (REF) | payer OTHER, SELFPAY ==
[2022-04-03 13:38] LABS: Alanine Aminotransferase 10 U/L (0-31); Albumin Level 4.4 g/dL (3.5-5.0); Alkaline Phosphatase 68 U/L (39-117); Anion Gap 12 (12-20); Aspartate Amino Transferase 32 U/L (5-31); Bilirubin Total 0.5 mg/dL (0.0-1.0); Blood Urea Nitrogen 9 mg/dL (9-16); Carbon Dioxide 26 mmol/L (22-29); Chloride 104 mmol/L (96-108); Estimated Glomerular Filt Rate > 60; Glucose Random 88 mg/dL (60-115); Potassium 4.2 mmol/L (3.3-5.1); Sodium 138 mmol/L (135-145)
== END 2022-04-03 11:50 | disposition home or self-care (01) ==
LOC: HO.LAB 11:49
PROVIDERS: PCP Internal Medicine; Visit Provider Internal Medicine Gastroenterology
DX: K75.81 Nonalcoholic steatohepatitis (NASH) (principal)
CPT/HCPCS: 36415; 80053

== ENCOUNTER 2022-07-02 10:17 | Emergency (ER) | payer OTHER, SELFPAY ==
[2022-07-02] VITALS (7 sets, daily range): BP systolic 91–100; BP diastolic 48–54; PULSE 77–116; RESP 14–17; TEMP 37.1–38; O2SAT 98–99; BMI 22.1
--- NOTE | ~2022-07-02 | XR_ITS ---
EXAMINATION: XR CHEST CLINICAL INFORMATION: Cough, fever COMPARISON: X-ray 01/22/2022 TECHNIQUE: Frontal view of the chest was obtained. FINDINGS: No significant abnormality is noted involving the heart, lungs, mediastinum, bony thorax or soft tissues. XR/XR chest 1V IMPRESSION: No evidence of acute pulmonary process.
[2022-07-02 11:09] LABS: COVID-19 Test Positive (Negative); IDNOW Serial# 16C4AD1C
--- NOTE | 2022-07-02 11:41 | ECG_ITS ---
Test Reason : DIZZY Blood Pressure : / mmHG Vent. Rate : 085 BPM Atrial Rate : 085 BPM P-R Int : 164 ms QRS Dur : 098 ms QT Int : 360 ms P-R-T Axes : 063 084 018 degrees QTc Int : 428 ms Normal sinus rhythm T wave abnormality, consider inferior ischemia Nonspecific ST abnormality Abnormal ECG No previous ECGs available Referred By: Crys Dwyer Electronically Signed By:NAV GRIJALVA
--- NOTE | 2022-07-02 11:42 | PC.NURSE ---
PT SITTING IN THE WR, WITNESSED SYNCOPAL EPISODE WITHOUT A FALL. PALE AND CLAMMY PLACED ON A STRETCHER, VSS. PT IS COVID+ TODAY, POC 113. PT IS AWAKE AND EVAL BY DR BARCENAS
--- NOTE | 2022-07-02 11:42 | ED.SYNCOPE ---
HPI - Syncope General Chief Complaint: Upper Respiratory Symptoms Stated Complaint: headache, body ache Time Seen by Provider: 07/02/22 11:40 Source: patient and family Mode of arrival: ambulatory Limitations: no limitations History of Present Illness HPI narrative: 26 yo female with hx of bronchitis, 2 COVID vaccines reports two days of cough, fevers, nausea/vomiting came to ED when she presented to the waiting room she felt very hot and weak her spouse caught her and she had syncopal episode in front of staff. Patient rebounding quickly. MD complaint: loss of consciousness and collapsed Onset (ago): minute(s) (syncope in waiting room) Duration of episode: 30 -: second(s) Prodromal symptoms: lightheaded Witnessed: Yes - by Bystander Context: standing up and recent illness Injuries sustained associated with event: none Current symptoms: back to baseline and nausea Treatments prior to arrival: none Related Data Previous Rx's Medication Instructions Recorded amitriptyline 10 mg tablet 10 mg PO BEDTIME 90 days #90 tabs 01/22/22 meloxicam 15 mg tablet 15 mg PO DAILY #14 tabs 04/26/22 midodrine 2.5 mg tablet 2.5 mg PO BID PRN low blood 07/02/22 pressure #30 tabs ondansetron 4 mg disintegrating 4 mg PO Q8H PRN nausea and 07/02/22 tablet vomiting #20 tabs Allergies Allergy/AdvReac Type Severity Reaction Status Date / Time No Known Allergies Allergy Verified 04/26/22 16:42 [No Known Allergies*] Review of Systems Review of Systems: Constitutional : No Weight loss, pos Fever, pos Chills ENT/Mouth : No sore throat, No Rhinorrhea Eyes: No Swelling, No Redness Cardiovascular : pos Chest Pain, pos SOB, No Edema Respiratory : No Cough, No Sputum, No Wheezing Gastrointestinal : Positive Nausea, Positive Vomiting, no Diarrhea, no abdominal Pain, No Hematochezia, No Melena Genitourinary : No Dysuria, No Urinary Frequency, No Hematuria, No Urgency Musculoskeletal : No joint pain, pos Myalgias, No Joint Swelling Skin : No Skin Lesions, No rash Neuro : pos Weakness, No Numbness, pos Dizziness, No Headache, pos syncope Psych : No Anxiety/Panic, No Depression Heme/Lymph: No Bruising, No Lymphadenopathy Endocrine : No Polyuria, No Polydipsia All other systems reviewed and are negative. [facility] Past Medical History Attestation statement: The following information was validated with the patient. Medical History Acute bronchitis Hospital discharge follow-up Left ear pain Migraine Physical exam Syncope Surgical History History of section History of tubal ligation Family History Family History Father Asthma Mother No problems noted. Paternal Uncle Colon cancer Social History Social History Household Members: Children Housing: Apartment Alcohol intake: never Patient Tobacco Use Status: Never used Tobacco e-Cigarette/Vaping Use: Never Used Second Hand Smoke Exposure: No Advance Directives: No Advance Directives Information Provided: No Patient : No service: No Current occupational status: employed Current occupational exposures/hazards: No Cognitive needs: No Hearing needs: No Vision needs: No Physical Exam Vital Signs: Vital Signs: Last Vital Signs Temp 98.7 F 07/02/22 13:22 Pulse 77 07/02/22 13:22 Resp 17 07/02/22 13:22 BP 93/48 L 07/02/22 13:22 Pulse Ox 98 07/02/22 13:22 O2 Del Method 07/02/22 13:22 BMI result Body Mass Index 22.1 Appearance: Alert. Oriented X3. No acute distress. Eyes: Pupils equal, round and reactive to light. ENT: Pharynx normal. Neck: Normal inspection. Neck supple. CVS: Normal heart rate and rhythm. Pulses normal. Respiratory: No respiratory distress. Breath sounds normal. Abdomen: Soft and non-tender. Skin: Skin warm and clammy. pale skin color. Normal skin turgor. Extremities: No lower extremity edema. No calf ttp Neuro: Oriented X 3. No motor deficit. No sensory deficit. Course Course Course Narrative: ddimer under VTE limits review of notes show prior syncope in past - has seen cardiology plan was for liberal salt intake if that failed PO midodrine patient notes at home despite her PO intake of salt her BP is always low will start on midodrine on DC she is upright now eating angolan fries and watching TV repeat trop negative stable for DC at this time BP around baseline MDM - Syncope MDM Narrative Medical decision making narrative: 26 yo female with hx of bronchitis here with c/o viral symptoms x 2 days vaccinated for COVID at this time. She has had poor PO intake and vomiting - syncopal episode in the waiting room. At this time labs, ddimer, troponin, CXR, UA, IVF x 2L, zofran and tylenol. Suspect syncope due to dehydration and poor PO intake. Lab Data Result diagrams: 07/02/22 12:02 07/02/22 12:02 Labs: Lab Results 07/02/22 07/02/22 07/02/22 Range/Units 10:47 11:40 12:02 WBC 6.2 (4.8-10.8) X10*3/uL RBC 4.64 (4.20-5.50) X10*6/uL Hgb 12.6 (12.0-16.0) g/dl Hct 38.5 (37.0-47.0) % MCV 83.0 (80.0-98.0) fL MCH 27.2 (27.0-33.0) pg MCHC 32.7 (31.0-35.0) g/dl RDW 13.1 (11.0-16.0) % Plt Count 207 (160-400) X10*3/uL MPV 11.0 (9.4-12.3) fL Immature Gran % (Auto) 0.3 (0.0-0.4) % Neut % (Auto) 64.5 (45-73) % Lymph % (Auto) 19.7 L (20-40) % [place] % (Auto) 12.6 H (2-11) % Eos % (Auto) 2.3 (0-4) % Baso % (Auto) 0.6 (0-2) % Lymph # (Auto) 1.2 (1.2-4.9) X10*3/uL [place] # (Auto) 0.8 (0.1-1.2) X10*3/uL Eos # (Auto) 0.1 (0.0-0.4) X10*3/uL Baso # (Auto) 0.0 (0.0-0.2) X10*3/uL Abs Immat Gran (auto) 0.02 (0.00-0.03) X10*3/uL Absolute Neuts (auto) 4.0 (2.0-8.3) x10*3/uL Absolute Nucleated RBC 0.000 (0.0-0.012) X10*3/uL Nucleated RBC % (auto) 0.0 (0.0-0.2) /100WBC D-Dimer High Sensitivty NG/ML Sodium (135-145) mmol/L Potassium (3.3-5.1) mmol/L Chloride (96-108) mmol/L Carbon Dioxide (22-29) mmol/L Anion Gap (12-20) BUN (9-16) mg/dL Creatinine (0.5-1.4) mg/dL Estim Creat Clear Calc Estimated GFR POC Glucose 113 (60-115) mg/dL Random Glucose (60-115) mg/dL Calcium (8.4-10.2) mg/dL Magnesium (1.6-2.6) mg/dL Total Bilirubin (0.0-1.0) mg/dL Direct Bilirubin (0.0-0.5) mg/dL AST (5-31) U/L ALT (0-31) U/L Alkaline Phosphatase (39-117) U/L Troponin I High Sens (<3.5-17.0) ng/L Total Protein (6.5-8.0) g/dL Albumin (3.5-5.0) g/dL Lipase (8-78) U/L Beta HCG, Quant mIU/mL Urine Color Urine Appearance Urine pH (5.0-9.0) Ur Specific [place] (1.005-1.025) Urine Protein (Neg-Trace) mg/dL Urine Glucose (UA) (Negative) mg/dL Urine Ketones (Negative) mg/dL Urine Blood (Negative) Urine Nitrite (Negative) Ur Leukocyte Esterase (Negative) Urine RBC (0-2) /HPF Urine WBC (0-5) /HPF Ur Squamous Epith Cells (0-2) /HPF Urine Bacteria (None Seen) Hyaline Casts (0-2) /LPF Granular Casts COVID-19 (JIMMY) Positive A (Negative) COVID-19 Clin Com See Note 07/02/22 07/02/22 07/02/22 Range/Units 12:02 12:02 12:02 WBC (4.8-10.8) X10*3/uL RBC (4.20-5.50) X10*6/uL Hgb (12.0-16.0) g/dl Hct (37.0-47.0) % MCV (80.0-98.0) fL MCH (27.0-33.0) pg MCHC (31.0-35.0) g/dl RDW (11.0-16.0) % Plt Count (160-400) X10*3/uL MPV (9.4-12.3) fL Immature Gran % (Auto) (0.0-0.4) % Neut % (Auto) (45-73) % Lymph % (Auto) (20-40) % [place] % (Auto) (2-11) % Eos % (Auto) (0-4) % Baso % (Auto) (0-2) % Lymph # (Auto) (1.2-4.9) X10*3/uL [place] # (Auto) (0.1-1.2) X10*3/uL Eos # (Auto) (0.0-0.4) X10*3/uL Baso # (Auto) (0.0-0.2) X10*3/uL Abs Immat Gran (auto) (0.00-0.03) X10*3/uL Absolute Neuts (auto) (2.0-8.3) x10*3/uL Absolute Nucleated RBC (0.0-0.012) X10*3/uL Nucleated RBC % (auto) (0.0-0.2) /100WBC D-Dimer High Sensitivty 209 NG/ML Sodium 136 (135-145) mmol/L Potassium 3.3 D (3.3-5.1) mmol/L Chloride 99 (96-108) mmol/L Carbon Dioxide 25 (22-29) mmol/L Anion Gap 15 (12-20) BUN 11 (9-16) mg/dL Creatinine 0.84 (0.5-1.4) mg/dL Estim Creat Clear Calc 82.5 Estimated GFR > 60 POC Glucose (60-115) mg/dL Random Glucose 104 (60-115) mg/dL Calcium 8.9 (8.4-10.2) mg/dL Magnesium 1.8 (1.6-2.6) mg/dL Total Bilirubin 0.7 (0.0-1.0) mg/dL Direct Bilirubin 0.3 (0.0-0.5) mg/dL AST 38 H (5-31) U/L ALT 11 (0-31) U/L Alkaline Phosphatase 70 (39-117) U/L Troponin I High Sens < 3.5 (<3.5-17.0) ng/L Total Protein 7.2 (6.5-8.0) g/dL Albumin 4.3 (3.5-5.0) g/dL Lipase 44 (8-78) U/L Beta HCG, Quant < 2 mIU/mL Urine Color Urine Appearance Urine pH (5.0-9.0) Ur Specific [place] (1.005-1.025) Urine Protein (Neg-Trace) mg/dL Urine Glucose (UA) (Negative) mg/dL Urine Ketones (Negative) mg/dL Urine Blood (Negative) Urine Nitrite (Negative) Ur Leukocyte Esterase (Negative) Urine RBC (0-2) /HPF Urine WBC (0-5) /HPF Ur Squamous Epith Cells (0-2) /HPF Urine Bacteria (None Seen) Hyaline Casts (0-2) /LPF Granular Casts COVID-19 (JIMMY) (Negative) COVID-19 Clin Com 07/02/22 07/02/22 Range/Units 13:27 13:58 WBC (4.8-10.8) X10*3/uL RBC (4.20-5.50) X10*6/uL Hgb (12.0-16.0) g/dl Hct (37.0-47.0) % MCV (80.0-98.0) fL MCH (27.0-33.0) pg MCHC (31.0-35.0) g/dl RDW (11.0-16.0) % Plt Count (160-400) X10*3/uL MPV (9.4-12.3) fL Immature Gran % (Auto) (0.0-0.4) % Neut % (Auto) (45-73) % Lymph % (Auto) (20-40) % [place] % (Auto) (2-11) % Eos % (Auto) (0-4) % Baso % (Auto) (0-2) % Lymph # (Auto) (1.2-4.9) X10*3/uL [place] # (Auto) (0.1-1.2) X10*3/uL Eos # (Auto) (0.0-0.4) X10*3/uL Baso # (Auto) (0.0-0.2) X10*3/uL Abs Immat Gran (auto) (0.00-0.03) X10*3/uL Absolute Neuts (auto) (2.0-8.3) x10*3/uL Absolute Nucleated RBC (0.0-0.012) X10*3/uL Nucleated RBC % (auto) (0.0-0.2) /100WBC D-Dimer High Sensitivty NG/ML Sodium (135-145) mmol/L Potassium (3.3-5.1) mmol/L Chloride (96-108) mmol/L Carbon Dioxide (22-29) mmol/L Anion Gap (12-20) BUN (9-16) mg/dL Creatinine (0.5-1.4) mg/dL Estim Creat Clear Calc Estimated GFR POC Glucose (60-115) mg/dL Random Glucose (60-115) mg/dL Calcium (8.4-10.2) mg/dL Magnesium (1.6-2.6) mg/dL Total Bilirubin (0.0-1.0) mg/dL Direct Bilirubin (0.0-0.5) mg/dL AST (5-31) U/L ALT (0-31) U/L Alkaline Phosphatase (39-117) U/L Troponin I High Sens < 3.5 (<3.5-17.0) ng/L Total Protein (6.5-8.0) g/dL Albumin (3.5-5.0) g/dL Lipase (8-78) U/L Beta HCG, Quant mIU/mL Urine Color Dark Yellow Urine Appearance Clear Urine pH 6.0 (5.0-9.0) Ur Specific [place] >= 1.030 H (1.005-1.025) Urine Protein 30 (1+) H (Neg-Trace) mg/dL Urine Glucose (UA) Negative (Negative) mg/dL Urine Ketones 15 (Negative) mg/dL Urine Blood Negative (Negative) Urine Nitrite Negative (Negative) Ur Leukocyte Esterase Trace H (Negative) Urine RBC 0-2 (0-2) /HPF Urine WBC 0-5 (0-5) /HPF Ur Squamous Epith Cells 6-10 (0-2) /HPF Urine Bacteria None Seen (None Seen) Hyaline Casts 0-2 (0-2) /LPF Granular Casts Present COVID-19 (JIMMY) (Negative) COVID-19 Clin Com ECG Data Attestation: I personally reviewed and interpreted this ECG as follows: ECG interpretation date: 07/02/22 ECG interpretation time: 12:10 Interpretation: Rate:85 Rhythm: NSR [place]: normal Normal P waves. Normal CRUZ. Normal QRS complex. ST T wave : nonspecific t waves in inf leads, no JANAK, qTC: normal prior studies: none available The study has been interpreted contemporaneously by me. Discharge Plan Discharge Clinical Impression: COVID-19, Postural hypotension Syncope Qualifiers: Syncope type: unspecified Qualified Code(s): R55 - Syncope and collapse Patient Disposition: Home, Self-Care Instructions: Syncope (ED), Hypotension (ED), COVID-19 (Coronavirus Disease 2019) (ED) Additional Instructions: si tiene tanta dificultad para respirar que no puede caminar hasta woodruff propio ba?o, busque atenci?n m?dica Prescriptions: New midodrine 2.5 mg tablet 2.5 mg PO BID PRN (Reason: low blood pressure) Qty: 30 0RF Rx Instructions: do not give last dose of day after 6PM or within 4 hrs of bedtime ondansetron 4 mg tablet,disintegrating 4 mg PO Q8H PRN (Reason: nausea and vomiting) Qty: 20 0RF No Action amitriptyline 10 mg tablet 10 mg PO BEDTIME 90 Days Qty: 90 1RF meloxicam 15 mg tablet 15 mg PO DAILY Qty: 14 0RF Referrals: Casandra Wilson MD [Primary Care Provider] - 1 week (low blood pressure) Stand Alone Forms: Work/School Release Print Language: Maori
[2022-07-02 11:44] LABS: Glucose, Whole Blood 113 mg/dL (60-115)
[2022-07-02 12:07] LABS: MANUAL DIFF FLAG NO
[2022-07-02 12:09] LABS: Basophils Percent Auto 0.6 % (0-2); Eosinophils Absolute Auto 0.1 X10*3/uL (0.0-0.4); Eosinophils Percent Auto 2.3 % (0-4); Hematocrit 38.5 % (37.0-47.0); Hemoglobin 12.6 g/dl (12.0-16.0); Imm Gran Abs Auto 0.02 X10*3/uL (0.00-0.03); Imm Gran Pct Auto 0.3 % (0.0-0.4); Lymphocytes Absolute Auto 1.2 X10*3/uL (1.2-4.9); Lymphocytes Percent Auto 19.7 % (20-40); Mean Corpuscular HGB Conc 32.7 g/dl (31.0-35.0); Mean Corpuscular Hemoglobin 27.2 pg (27.0-33.0); Monocytes Absolute Auto 0.8 X10*3/uL (0.1-1.2); Monocytes Percent Auto 12.6 % (2-11); Neutrophils Percent Auto 64.5 % (45-73); Platelet Count 207 X10*3/uL (160-400); Red Blood Count 4.64 X10*6/uL (4.20-5.50); Red Cell Distribution Width 13.1 % (11.0-16.0); White Blood Count 6.2 X10*3/uL (4.8-10.8)
[2022-07-02] MEDS: Acetaminophen 325 MG TABLET 650 MG PO (12:10)
[2022-07-02] MEDS: ondansetron HCL 4 MG/2 ML VIAL IVPUSH (12:10)
[2022-07-02] MEDS: Lactated Ringers 1,000 ML 999 ML IV ×2 (12:11→13:28)
[2022-07-02 12:16] LABS: D Dimer High Sensitivity 209 NG/ML
[2022-07-02 12:27] LABS: Alanine Aminotransferase 11 U/L (0-31); Albumin Level 4.3 g/dL (3.5-5.0); Alkaline Phosphatase 70 U/L (39-117); Anion Gap 15 (12-20); Aspartate Amino Transferase 38 U/L (5-31); Bilirubin Direct 0.3 mg/dL (0.0-0.5); Bilirubin Total 0.7 mg/dL (0.0-1.0); Blood Urea Nitrogen 11 mg/dL (9-16); Calcium 8.9 mg/dL (8.4-10.2); Carbon Dioxide 25 mmol/L (22-29); Chloride 99 mmol/L (96-108); Creatinine Clr Calc Pharmacy 82.5; Estimated Glomerular Filt Rate > 60; Glucose Random 104 mg/dL (60-115); Lipase 44 U/L (8-78); Magnesium 1.8 mg/dL (1.6-2.6); Potassium 3.3 mmol/L (3.3-5.1); Sodium 136 mmol/L (135-145); Total Protein 7.2 g/dL (6.5-8.0)
[2022-07-02 12:33] LABS: HCG Quantitative < 2 mIU/mL; Troponin-I High Sensitivity < 3.5 ng/L (<3.5-17.0)
[2022-07-02 13:33] LABS: Appearance Urine Clear; Color Urine Dark Yellow; Glucose Urine UA Negative (Negative); Leukocyte Esterase Urine Trace (Negative); Nitrite Urine Negative (Negative); Specific Gravity - Urine >= 1.030 (1.005-1.025); Urine Blood Negative (Negative); Urine Ketones 15 mg/dL (Negative); Urine Protein 30 (1+) mg/dL (Neg-Trace)
[2022-07-02 13:49] LABS: Granular Casts Urine Present; Hyaline Casts Urine 0-2 /LPF (0-2); RBC Urine 0-2 /HPF (0-2); WBC Urine 0-5 /HPF (0-5)
[2022-07-02 13:54] LABS: Bacteria Urine None Seen (None Seen)
[2022-07-02 14:21] LABS: Troponin-I High Sensitivity < 3.5 ng/L (<3.5-17.0)
== END 2022-07-02 15:00 | disposition home or self-care (01) ==
PROVIDERS: Emergency Provider Emergency Medicine; PCP Internal Medicine
DX: U07.1 COVID-19 (principal); R55 Syncope and collapse; I95.9 Hypotension, unspecified; Z79.899 Other long term (current) drug therapy
CPT/HCPCS: 36415; 71045; 80048; 80076; 81001; 82947; 83690; 83735; 84484; 84702; 85025; 85379; 87635; 93005; 96374; 99284; 99285; J2405

== ENCOUNTER 2022-10-28 10:37 | Emergency (ER) | payer OTHER, SELFPAY ==
--- NOTE | 2022-10-28 10:38 | PC.NURSE ---
called for an certified court/medical interpreter
[2022-10-28 10:43] VITALS: BP 112/66; PULSE 93; RESP 16; TEMP 36.6; O2SAT 96; BMI 22.1
[2022-10-28 11:42] LABS: Influenza A PCR POSITIVE (Negative); Influenza B PCR NEGATIVE (Negative); Resp Syncy Virus RNA Qual PCR NEGATIVE (Negative); SARS COV2 PCR INHOUSE NEGATIVE (Negative)
--- NOTE | 2022-10-28 12:08 | ED.GENADULT ---
HPI - General Adult General Chief complaint: Upper Respiratory Symptoms Stated complaint: ear pain, congestion Time Seen by Provider: 10/28/22 11:55 Source: patient Limitations: no limitations History of Present Illness HPI narrative: This is a 26-year-old female who has had URI symptoms for 3 days. Patient has had other members of her family at home who have had influenza a. Patient has had fevers off and on. She has had nasal congestion and this morning woke up with her right ear hurting. She has had some sore throat. She has had a cough. She has vomited a few times. She denies diarrhea. She does have generalized aches especially in her back. Related Data Previous Rx's Medication Instructions Recorded [id number] 4 10 ml PO Q6H #480 mL 10/28/22 mg-10 mg-30 mg/5 mL oral liquid ibuprofen 600 mg tablet 600 mg PO Q6H PRN pain #30 tabs 10/28/22 Allergies Allergy/AdvReac Type Severity Reaction Status Date / Time No Known Allergies Allergy Verified 10/28/22 10:43 [No Known Allergies*] Review of Systems Review of Systems: Yes all other systems are reviewed and are negative Constitutional: Constitutional: Reports as per HPI and Reports fever(s) Eyes: Eyes: Reports as per HPI and Reports no additional eye complaints ENT: Reports system reviewed and no additional complaints, except as documented, Reports as per HPI, Denies ear discharge, Reports otalgia, Reports nasal congestion, Reports nasal discharge and Reports sore throat Cardiovascular: Cardiovascular: Reports as per HPI, Denies chest pain and Denies dyspnea Respiratory: Respiratory: Reports as per HPI, Reports cough and Denies dyspnea Gastrointestinal: Gastrointestinal: Reports as per HPI, Denies abdominal pain, Denies diarrhea, Reports nausea and Reports vomiting Musculoskeletal: Musculoskeletal: Reports back pain, Reports myalgias and Denies numbness Integumentary/Breasts: Skin/Breast: Reports as per HPI and Denies rash Neurologic: Reports as per HPI, Denies focal weakness and Denies numbness Psychiatric: Psychiatric: Reports no additional psychiatric complaints and Reports as per HPI Endocrine: Endocrine: Reports no additional endocrine complaints and Reports as per HPI Hematologic/Lymphatic: Hematologic/Lymphatic: Reports no additional hematologic/lymphatic complaints, Reports as per HPI and Reports other (No peripheral edema) [facility] Past Medical History Medical History Acute bronchitis Hospital discharge follow-up Left ear pain Migraine Physical exam Syncope Surgical History History of section History of tubal ligation Family History Family History Father Asthma Mother No problems noted. Paternal Uncle Colon cancer Social History Social History Household Members: Children Housing: Apartment Alcohol intake: never Patient Tobacco Use Status: Never used Tobacco e-Cigarette/Vaping Use: Never Used Second Hand Smoke Exposure: No Advance Directives: No Advance Directives Information Provided: Yes service: No Current occupational status: employed Current occupational exposures/hazards: No Cognitive needs: No Hearing needs: No Vision needs: No Physical Exam ED Vital Signs: Vital Signs - 24 hr 10/28/22 10:43 Temperature 97.8 F Pulse Rate 93 Respiratory Rate 16 Blood Pressure 112/66 Pulse Oximetry 96 Oxygen Delivery Method Room Air BMI result Body Mass Index 22.1 Const General: no acute distress Orientation/consciousness: patient oriented x3 HENMT Head: Yes normal to inspection Ears: external ears normal and TM's normal bilaterally General nose exam: Nasal discharge present Mouth: moist mucous membranes Throat: Yes posterior oropharynx normal, Yes tonsils normal and Yes uvula midline Eyes Eyelids: Yes eyelids normal Conjunctivae: conjunctivae normal Pupils: Equal, round and reactive pupils present Neck Neck: Yes supple Resp Effort & Inspection: normal respiratory effort Auscultation: clear to auscultation bilaterally Cardio Rate: regular rate Rhythm: regular rhythm Heart sounds: S1 normal heart sound present, S2 normal heart sound present, no gallops, no murmurs and no rubs GI Inspection: No distended Palpation (GI): Soft to palpation and nontender Auscultation: normal bowel sounds Skin General skin exam: other (Warm and dry) Neuro General: patient oriented x3 and CN's II-XI intact bilaterally Cranial nerves: Yes Equal, round and reactive pupils present Extrem General: Yes no pedal edema Psych Affect: normal affect Attitude: cooperative Medical Decision Making Lab Data Labs: Lab Results 10/28/22 Range/Units 10:46 Influenza Type A (PCR) POSITIVE A (Negative) Influenza Type B (PCR) NEGATIVE (Negative) RSV RNA Qual (PCR) NEGATIVE (Negative) SARS-CoV-2 RNA (RT-PCR) NEGATIVE (Negative) Discharge Plan Discharge Clinical Impression: Influenza A Patient Disposition: Home, Self-Care Instructions: Influenza (ED) Additional Instructions: Drink plenty of fluids. Use ibuprofen or acetaminophen for fever and aches. Use the prescribed ibuprofen and cough medicine as needed. Return for any new or worsened symptoms Prescriptions: New [id number]-HT 4-10-30 mg/5 mL liquid 10 ml PO Q6H Qty: 480 0RF ibuprofen 600 mg tablet 600 mg PO Q6H PRN (Reason: pain) Qty: 30 0RF
--- NOTE | 2022-10-28 12:30 | PC.NURSE ---
pt discharged, alert oriented, NAD, no medications given in dept, verbalizes understanding of use of cough suppressant and NSAID
== END 2022-10-28 12:31 | disposition home or self-care (01) ==
PROVIDERS: Emergency Provider Emergency Medicine; PCP Internal Medicine
DX: J11.1 Influenza due to unidentified influenza virus with other respiratory manifestations (principal); Z20.822 Contact with and (suspected) exposure to COVID-19
CPT/HCPCS: 0241U; 99282; 99283

== ENCOUNTER → 2022-12-04 10:17 | Outpatient (BNVA) | payer OTHER, SELFPAY | PROVIDERS: PCP Internal Medicine; Visit Provider Internal Medicine | DX: R55 Syncope and collapse (principal); I95.0 Idiopathic hypotension | CPT/HCPCS: 99212 ==

== ENCOUNTER → 2022-12-11 14:32 | Outpatient (BNVA) | payer OTHER, SELFPAY | PROVIDERS: PCP Internal Medicine; Visit Provider Nurse Practitioner Family | DX: G43.909 Migraine, unspecified, not intractable, without status migrainosus (principal); R55 Syncope and collapse; I95.0 Idiopathic hypotension | CPT/HCPCS: 99202 ==

== ENCOUNTER 2022-12-20 16:04 | Inpatient (IN) | payer OTHER, SELFPAY ==
[2022-12-20] VITALS (14 sets, daily range): BP systolic 81–110; BP diastolic 34–51; PULSE 89–125; RESP 16–22; TEMP 36.6–39.1; O2SAT 93–100; BMI 23.3
--- NOTE | ~2022-12-20 | XR_ITS ---
EXAMINATION: XR CHEST CLINICAL INFORMATION: Syncope and acute mental status change COMPARISON: Chest x-ray 07/02/2022 TECHNIQUE: Frontal view of the chest was obtained. FINDINGS: The lungs are clear. No airspace consolidation, pleural effusion, or pneumothorax. The cardiomediastinal silhouette is within normal limits. No acute osseous injury. XR/XR chest 1V IMPRESSION: No acute pulmonary process.
--- NOTE | ~2022-12-20 | CT_ITS ---
EXAMINATION: CT HEAD WITHOUT CONTRAST CLINICAL INFORMATION: Syncope. COMPARISON: CT head 05/03/2021 TECHNIQUE: Contiguous axial imaging was performed from the skull base to vertex without intravenous administration of contrast. Coronal and sagittal reformatted images are performed at the CT scanner. [This CT examination was performed using dose optimization techniques as appropriate, variously including the following: *Automated exposure control *Adjustment of mA and/or kV according to patient size (this includes techniques or standardized protocols for targeted exams where dose is matched to indication/reason for exam; i.e. extremities or head) *Use of iterative reconstruction technique] DLP: 598 mGy-cm. FINDINGS: There is no evidence of acute intracranial hemorrhage or territorial infarction. No abnormal mass-effect or midline shift is seen. Phan to white matter differentiation is well preserved. No extra-axial fluid collections are identified. The ventricles are normal in size. There is no abnormal attenuation within the brain parenchyma. There is no osseous abnormality. The mastoid air cells and visualized portions of the paranasal sinuses are well-aerated. CT/CT head/brain wo IV con IMPRESSION: No acute intracranial pathology.
--- NOTE | ~2022-12-20 | US_ITS ---
EXAMINATION: US PELVIS CLINICAL INFORMATION: Right lower quadrant pain COMPARISON: CT abdomen pelvis 12/20/2022, pelvic ultrasound 06/01/2016 TECHNIQUE: Ultrasound of the pelvis is performed using both transabdominal and transvaginal transducers along with Doppler. Transvaginal imaging is performed due to inadequate visualization transabdominally. FINDINGS: Uterus: The uterus is anteverted, retroflexed, and measures 8.4 x 4.9 x 6 cm. The double wall endometrial thickness is 0.9 mm with trilaminar appearance. The uterus is smooth in contour and has normal myometrial echogenicity. No visible fibroid. Adnexa: Both ovaries are visualized. There is normal color flow to the adnexa. There is no ovarian torsion. Small amount of free pelvic fluid. Right ovary measures 4.3 x 3 x 2 cm, volume 13.5 mL. In the right ovary there is a 2.3 x 1.3 x 2 cm anechoic dominant follicle. No adnexal mass. Left ovary measures 2.7 x 1.8 x 1.5 cm, volume 3.8 mL. No adnexal cyst or mass. Within the subcutaneous fat of the lower ventral abdominal wall, there is a small 1.5 x 0.8 x 0.9 cm hypoechoic area of echotexture. No increased internal vascularity. Finding is not entirely specific but likely to represent a focal area of scarring related to prior surgery/ and corresponds to minimal asymmetric thickening of the lower right rectus abdominis muscle on the earlier CT. US/US pelvic ovarian doppler IMPRESSION: 1. No evidence of ovarian torsion. 2. Small amount of free pelvic fluid. 3. Normal uterus and ovaries.
--- NOTE | ~2022-12-20 | CT_ITS ---
EXAMINATION: CT ABDOMEN AND PELVIS WITH CONTRAST CLINICAL INFORMATION: Abdominal pain COMPARISON: CT abdomen pelvis 10/22/2016 TECHNIQUE: Multidetector volumetric images were obtained from the superior aspect of the liver through the pubic symphysis following administration 85 mL of Omnipaque 350 intravenous contrast. Sagittal and coronal reformatted images were obtained on the technologist's workstation. Oral contrast: No This CT examination was performed using dose optimization techniques as appropriate, variously including the following: *Automated exposure control *Adjustment of mA and/or kV according to patient size (this includes techniques or standardized protocols for targeted exams where dose is matched to indication/reason for exam; i.e. extremities or head) *Use of iterative reconstruction technique DLP: 383 mGy-cm FINDINGS: LUNG BASES: The visualized lung bases are unremarkable. LIVER, GALLBLADDER, AND BILIARY TREE: The liver is normal in size, shape, and attenuation. No focal hepatic lesion or biliary ductal dilatation is present. The gallbladder is unremarkable with no evidence of radiopaque gallstones, gallbladder wall thickening, or obvious pericholecystic inflammatory changes. PANCREAS: Unremarkable. SPLEEN: Unremarkable. ADRENAL GLANDS: Unremarkable. KIDNEYS AND URETERS: The kidneys are normal in size, shape, and attenuation. No hydronephrosis, hydroureter, or calculi seen. No perinephric stranding. BLADDER: Unremarkable. GASTROINTESTINAL TRACT: Stomach and small bowel nondilated. Moderate to large amount of formed stool throughout the nondilated colon. There is a very thin blind-ending tubular structure arising from the base of the cecum consistent with a normal appendix. No surrounding inflammatory change. No intra-abdominal free air. ABDOMINAL WALL: No significant hernia is appreciated. LYMPH NODES: No lymphadenopathy. VASCULAR: Unremarkable. PELVIC VISCERA: Uterus is anteverted and retroflexed. Small 2.1 cm dominant follicle or functional cyst in the right ovary. Gynecologic structures otherwise unremarkable. No appreciable free pelvic fluid. OSSEOUS STRUCTURES: No acute fracture or suspicious osseous lesion. CT/CT abdomen pelvis w IV con IMPRESSION: 1. No acute intra-abdominal process identified. No findings of acute appendicitis. 2. Moderate to large amount of formed stool throughout the colon. Correlate clinically with signs or symptoms of constipation.
--- NOTE | ~2022-12-20 | US_ITS ---
EXAMINATION: US PELVIS CLINICAL INFORMATION: Right lower quadrant pain COMPARISON: CT abdomen pelvis 12/20/2022, pelvic ultrasound 06/01/2016 TECHNIQUE: Ultrasound of the pelvis is performed using both transabdominal and transvaginal transducers along with Doppler. Transvaginal imaging is performed due to inadequate visualization transabdominally. FINDINGS: Uterus: The uterus is anteverted, retroflexed, and measures 8.4 x 4.9 x 6 cm. The double wall endometrial thickness is 0.9 mm with trilaminar appearance. The uterus is smooth in contour and has normal myometrial echogenicity. No visible fibroid. Adnexa: Both ovaries are visualized. There is normal color flow to the adnexa. There is no ovarian torsion. Small amount of free pelvic fluid. Right ovary measures 4.3 x 3 x 2 cm, volume 13.5 mL. In the right ovary there is a 2.3 x 1.3 x 2 cm anechoic dominant follicle. No adnexal mass. Left ovary measures 2.7 x 1.8 x 1.5 cm, volume 3.8 mL. No adnexal cyst or mass. Within the subcutaneous fat of the lower ventral abdominal wall, there is a small 1.5 x 0.8 x 0.9 cm hypoechoic area of echotexture. No increased internal vascularity. Finding is not entirely specific but likely to represent a focal area of scarring related to prior surgery/ and corresponds to minimal asymmetric thickening of the lower right rectus abdominis muscle on the earlier CT. US/US pelvic and transvaginal IMPRESSION: 1. No evidence of ovarian torsion. 2. Small amount of free pelvic fluid. 3. Normal uterus and ovaries.
--- NOTE | 2022-12-20 16:09 | ED.GENADULT ---
HPI - General Adult General Chief complaint: General Medical Stated complaint: vomiting,passed out Time Seen by Provider: 12/20/22 16:06 Source: patient and family Mode of arrival: ambulatory Limitations: altered mental status History of Present Illness HPI narrative: 27-year-old female history of idiopathic hypotension, syncopal episodes presents to the emergency department with , nursing staff were called out to the front as patient was supposedly unresponsive in her 's car. When patient arrived into the Emergency Department she appeared pale however she did have pulses, she was breathing on her own, she was awake however not speaking she appeared pale but was following simple comands. According to she had been having nausea and left-sided ear pain since earlier today. He reports that patient has history of syncope and has been seen by Neurology and Cardiology and has had thorough workups however they were unable to identify a cause for patient's syncope. denies drug use. Patient is able to answer basic questions with encouragement. Related Data Previous Rx's Medication Instructions Recorded sertraline 25 mg tablet 25 mg PO DAILY 30 days #30 tabs 12/11/22 Allergies Allergy/AdvReac Type Severity Reaction Status Date / Time No Known Allergies Allergy Verified 12/11/22 14:46 [No Known Allergies*] Review of Systems Review of Systems: Constitutional : No Weight loss, No Fever, No Chills, + Fatigue, + Malaise ENT/Mouth : No sore throat, No Rhinorrhea, + ear pain Eyes: No Eye Pain, No Swelling, No Redness Cardiovascular : No Chest Pain, No SOB, No Dyspnea on Exertion, No Orthopnea, No Edema, No Palpitations Respiratory : No Cough, No Sputum, No Wheezing Gastrointestinal : + Nausea, No Vomiting, No Diarrhea, No Constipation, No abdominal Pain, No Hematochezia, No Melena Genitourinary : No Dysuria, No Urinary Frequency, No Hematuria, Musculoskeletal : No joint pain, No Myalgias, No Joint Swelling Skin : No Skin Lesions, No rash Neuro : + Weakness, No Numbness, No Dizziness, No Headache Psych : No Anxiety/Panic, No Depression All other systems reviewed and are negative Yes all other systems are reviewed and are negative PMFSH Past Medical History Attestation statement: The following information was validated with the patient. Source: old records reviewed and nursing notes reviewed Medical History Acute bronchitis Hospital discharge follow-up Left ear pain Migraine Physical exam Syncope Surgical History History of section History of tubal ligation Family History Family History Father Asthma Mother No problems noted. Paternal Uncle Colon cancer Social History Social History Household Members: Children Housing: Apartment Alcohol intake: never Patient Tobacco Use Status: Never used Tobacco e-Cigarette/Vaping Use: Never Used Second Hand Smoke Exposure: No Advance Directives: No Advance Directives Information Provided: No service: No Current occupational status: employed Current occupational exposures/hazards: No Cognitive needs: No Hearing needs: No Vision needs: No Physical Exam ED Vital Signs: Vital Signs - 24 hr 12/20/22 16:15 12/20/22 16:20 12/20/22 16:25 Temperature 99.4 F 99.4 F Pulse Rate 102 H 89 Respiratory Rate 18 22 H Blood Pressure 98/48 L 98/48 L 106/46 L Pulse Oximetry 100 100 100 Oxygen Delivery Method Room Air Room Air Room Air 12/20/22 18:38 12/20/22 20:06 12/20/22 20:53 Temperature 102.4 F H 100.1 F Pulse Rate 116 H 117 H 117 H Respiratory Rate 16 16 Blood Pressure 92/47 L 110/51 L 85/34 L Pulse Oximetry 97 100 Oxygen Delivery Method Room Air Room Air 12/20/22 21:21 12/20/22 21:06 12/20/22 20:56 Temperature Pulse Rate 112 H 113 H 117 H Respiratory Rate Blood Pressure 99/47 L 87/37 L 97/43 L Pulse Oximetry Oxygen Delivery Method 12/20/22 21:59 12/20/22 23:18 12/20/22 23:19 Temperature Pulse Rate 114 H 112 H 125 H Respiratory Rate Blood Pressure 106/44 L 100/42 L 93/48 L Pulse Oximetry Oxygen Delivery Method 12/20/22 23:21 Temperature Pulse Rate 116 H Respiratory Rate Blood Pressure 81/41 L Pulse Oximetry Oxygen Delivery Method BMI result Body Mass Index 23.3 vss Appearance: Alert.? Oriented X3.? Head: Normocephalic, atraumatic, no step-offs or deformities Eyes: Pupils equal, round and reactive to light.? Neck: Normal inspection.? Neck supple.? Negative Kernig and Brudzinski. CVS: Normal heart rate and rhythm.? Pulses normal.? Respiratory: No respiratory distress.? Breath sounds normal.? Abdomen: Soft and + diffusely tender > epigastric region Skin: Skin warm and dry.? Pale skin color.? Normal skin turgor.? Extremities: No lower extremity edema.? No calf ttp. 5/5 strength to bilateral upper and lower extremities Neuro: Oriented X 3.? No motor deficit.? No sensory deficit. CN 2-12 intact . Normal [id number], [id number]. 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 Course Reevaluation(s) Reevaluation #1: Patient's CBC with slight leukocytosis could be reactive secondary to viral infection or nausea vomiting. Chemistry revealing a low magnesium 1.4, 2 g of IV Mag have been ordered at this time and repeat magnesium will be obtained. Troponin negative an EKG pending. I did go in to evaluate patient again, mentating well, alert and oriented x4, no telling me that this morning she had vomiting in the morning and left-sided ear pain. I did evaluate patient's ears bilaterally normal tympanic membrane, ear canal, no mass or tenderness no pain with manipulation of external ears bilaterally. Patient also telling me she is not having epigastric pain and pain to right lower quadrant. Will obtain CT of the abdomen pelvis to rule out acute abdomen, patient does have tenderness at this time diffusely however worse in the right lower quadrant. Blood cultures, lactic acid also ordered as patient was noted to be febrile I also ordered fluids and Tylenol. Lactic acid, blood cultures, CT scan, urine pending. Although patient is febrile and did initially present as altered mental status the suspect altered mental status secondary to syncopal episode. Negative Kernig and Brudzinski on exam I do not suspect meningitis or encephalitis on this patient. Time: 18:57 Reevaluation #2: Lactic acidosis likely secondary to dehydration/starvation ketosis/dehydration from nausea, vomiting patient tells me that she hasnt been able to eat due to vomiting. Worsening abdominal pain concerns for appendicitis, slowly migrating to RLQ. Concerns now that patient could have syncopized from pain. Patient remains tachycardic and still febrile, her pressures are dropping, at this time infection suspected will cover with broad-spectrum antibiotic coverage Zosyn, patient recieving IV hydration ( had gotten a few L. 30cc/kg bolus would be 1,973 mls/hr) . Urine still pending, I did speak to nursing and ask them for straight cath if patient could not urinate. Patient's pressure still soft, will administer midodrine at this time Spoke to my attending about this case was also concern for possible appendicitis. Time: 19:29 Reevaluation #3: UA clean. No infection. Tox clean. Patients pressure soft requesting pain meds, fentanyl ordered. Time: 20:08 Additional Reevaluation(s): 2039 CT of the abdomen and pelvis with no intra-abdominal process identified. No findings of acute appendicitis. Moderate to large amount of formed stool throughout the colon. Patient denies complaints of constipation. Will obtain ultrasound pelvic ovarian with Doppler, patient's history and physical examination less likely for ovarian torsion however since I have still not found a reason for patient's pain will obtain ultrasound. 233 Pelvic ultrasound with no evidence of ovarian torsion. Small amount of free pelvic fluid which could be physiologic. Normal uterus and ovaries. Patient's pain controlled with fentanyl. I did have nursing staff obtain orthostatic vital signs, patient is noted to be orthostatic likely patient's syncopized to from orthostasis. This case was discussed with hospitalist who will admit patient for further evaluation and treatment. Medications Administered Discontinued Medications Generic Name Dose Route Start Last Admin Trade Name Isabella PRN Reason Stop Dose Admin Acetaminophen 650 mg 12/20/22 18:35 12/20/22 18:43 Acetaminophen 325 Mg Tablet PO 12/20/22 18:36 650 mg ONCE ONE Administration Fentanyl 25 mcg 12/20/22 20:09 12/20/22 20:27 Fentanyl Citrate/Pf 100 Mcg/2 Ml Vial IVPUSH 12/20/22 20:10 25 mcg ONCE ONE Administration Protocol Sodium Chloride 1,000 mls @ 999 mls/hr 12/20/22 16:15 12/20/22 17:35 Ns IV 12/20/22 17:15 Infused .Q1H1M MATTHEW Infusion Magnesium Sulfate 2 gm in 50 mls @ 25 mls/hr 12/20/22 16:38 12/20/22 17:09 Magnesium Sulfate/H2o IV 12/20/22 18:37 25 mls/hr ONCE ONE Administration Sodium Chloride 1,000 mls @ 999 mls/hr 12/20/22 18:45 12/20/22 19:26 Ns IV 12/20/22 19:45 Infused .Q1H1M MATTHEW Infusion Sodium Chloride 1,000 mls @ 999 mls/hr 12/20/22 19:15 12/20/22 21:29 Ns IV 12/20/22 20:15 Infused .Q1H1M MATTHEW Infusion Sodium Chloride 1,000 mls @ 999 mls/hr 12/20/22 19:30 12/20/22 21:43 Ns IV 12/20/22 20:30 Infused .Q1H1M MATTHEW Infusion Piperacillin Sod/Tazobactam 50 mls @ 100 mls/hr 12/20/22 19:28 12/20/22 21:29 Sod 3.375 gm/ Sodium Chloride IV 12/20/22 19:57 Infused ONCE ONE Infusion Iohexol 100 ml 12/20/22 20:19 12/20/22 20:20 Iohexol 350 Mg/Ml 100 Ml Infus..Btl IV 12/20/22 20:20 85 ml ONCE ONE Administration Midodrine 5 mg 12/20/22 19:36 12/20/22 20:20 Midodrine Hcl 5 Mg Tablet PO 12/20/22 19:37 5 mg ONCE ONE Administration Medical Decision Making Medical Decision Making [facility] Narrative: 1605 27 year old female presents sp suspected syncopal episode [employer], arrives with altered mental status, according to patient had vomiting and left-sided ear pain prior to arrival. Hx of similar episodes PE benign. NIHSS 0 Likely orthostatic hypotension versus syncope. Will rule out polysubstance abuse, electrolyte abnormalities, dysrhythmias. Unlikely seizure disorder, stroke or posterior stroke. History and physical exam not consistent with intracranial hemorrhage. Nausea and vomiting likely secondary to viral infection Plan labs, cardiac monitoring, urine, CERDA, troponin, EKG, head CT -- Neurology note from 12/11/2021: Pt states that her last episode was last month. She states this was a typical episode: stood up, saw dark tunnel, so sat down down, and felt palpitations, which was f/b LOC. 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 The whole episode lasts maybe 5-7 minutes. Denies any interictal tongue biting or B/B inc. Reports postictal confusion for about an hour- she states that she is tired, general out-of-it feling. Review of [facility] Er notes- post-syncopal episode in Er waiting room, pt came to quickly and was able to provide full history. Pt also notes a h/o migraines- having 2-3 migraine days per week. Pt also notes snoring, poor sleep, unrefreshing sleep. her father has sleep apnea, and her son is suspected to have sleep apnea. She has seen cardiology who feels these episodes are likely r/t low-BP, and advised her to drink more water and eat more salt. Echocardiogram with normal LVEF, 55-60% and no significant valvular pathology.? Holter shows underlying sinus rhythm with an average rate of 80/minute with episodes of sinus tachycardia, but no other arrhythmias. US/US carotid duplex BI, 04/2021- normal EEG- 2021- normal Head CT wo- 04/2021- normal Differential Diagnosis Differential Diagnoses: The differential diagnosis associated with the presentation includes Likely orthostatic hypotension versus syncope. Will rule out polysubstance abuse, electrolyte abnormalities, dysrhythmias. Unlikely seizure disorder, stroke or posterior stroke. History and physical exam not consistent with intracranial hemorrhage. Nausea and vomiting likely secondary to viral infection Admission/Observation Consideration of admission/observation: Escalation of care including admission/observation considered Likely hospital admission Lab Data MDM Lab Attestation statement: I reviewed the patient's lab results. 12/20/22 16:12 12/20/22 16:12 Labs: Lab Results 12/20/22 12/20/22 12/20/22 Range/Units 16:12 16:12 16:12 WBC 11.3 H (4.8-10.8) X10*3/uL RBC 4.51 (4.20-5.50) X10*6/uL Hgb 12.3 (12.0-16.0) g/dl Hct 37.6 (37.0-47.0) % MCV 83.4 (80.0-98.0) fL MCH 27.3 (27.0-33.0) pg MCHC 32.7 (31.0-35.0) g/dl RDW 13.1 (11.0-16.0) % Plt Count TNP MPV 10.4 (9.4-12.3) fL Immature Gran % (Auto) 0.3 (0.0-0.4) % Neut % (Auto) 91.4 H (45-73) % Lymph % (Auto) 4.0 L (20-40) % [place] % (Auto) 3.7 (2-11) % Eos % (Auto) 0.3 (0-4) % Baso % (Auto) 0.3 (0-2) % Lymph # (Auto) 0.5 L (1.2-4.9) X10*3/uL [place] # (Auto) 0.4 (0.1-1.2) X10*3/uL Eos # (Auto) 0.0 (0.0-0.4) X10*3/uL Baso # (Auto) 0.0 (0.0-0.2) X10*3/uL Abs Immat Gran (auto) 0.03 (0.00-0.03) X10*3/uL Absolute Neuts (auto) 10.3 H (2.0-8.3) x10*3/uL Absolute Nucleated RBC 0.000 (0.0-0.012) X10*3/uL Nucleated RBC % (auto) 0.0 (0.0-0.2) /100WBC Smear Tech's Comments VERIFIED Sodium 137 (135-145) mmol/L Potassium 4.3 D (3.3-5.1) mmol/L Chloride 106 (96-108) mmol/L Carbon Dioxide 23 (22-29) mmol/L Anion Gap 12 (12-20) BUN 15 (9-16) mg/dL Creatinine 0.76 (0.5-1.4) mg/dL Estim Creat Clear Calc 102.2 Estimated GFR > 60 Random Glucose 155 H (60-115) mg/dL Lactic Acid (0.5-2.0) mmol/L Lactic Acid F/U @ 2Hr (0.5-2.0) mmol/L Calcium 8.7 (8.4-10.2) mg/dL Magnesium 1.4 L* (1.6-2.6) mg/dL Total Bilirubin 0.7 (0.0-1.0) mg/dL AST 34 H (5-31) U/L ALT 14 (0-31) U/L Alkaline Phosphatase 69 (39-117) U/L Troponin I High Sens (<3.5-17.0) ng/L B-Natriuretic Peptide (<100) pg/mL Total Protein 6.7 (6.5-8.0) g/dL Albumin 4.1 (3.5-5.0) g/dL Lipase 26 (8-78) U/L Beta HCG, Quant mIU/mL Urine Color Urine Appearance Urine pH (5.0-9.0) Ur Specific [place] (1.005-1.025) Urine Protein (Neg-Trace) mg/dL Urine Glucose (UA) (Negative) mg/dL Urine Ketones (Negative) mg/dL Urine Blood (Negative) Urine Nitrite (Negative) Ur Leukocyte Esterase (Negative) Urine RBC (0-2) /HPF Urine WBC (0-5) /HPF Ur Squamous Epith Cells (0-2) /HPF Urine Bacteria (None Seen) Hyaline Casts (0-2) /LPF Salicylates < 5.0 L (15-30) mg/dL Urine Opiates Screen (Not Detect) Urine Fentanyl Screen (Not Detect) Acetaminophen < 17 (<30) mcg/mL Ur Barbiturates Screen (Not Detect) Ur Phencyclidine Scrn (Not Detect) Ur Amphetamines Screen (Not Detect) U Benzodiazepines Scrn (Not Detect) Urine Cocaine Screen (Not Detect) U Marijuana (THC) Screen (Not Detect) Ethyl Alcohol < 10 mg/dL COVID-19 (JIMMY) (Negative) COVID-19 Clin Com Influenza Type A (CHEYENNE) Negative (Negative) Influenza Type B (CHEYENNE) Negative (Negative) Influenza A & B Note See Note 12/20/22 12/20/22 12/20/22 Range/Units 16:12 16:12 16:12 WBC (4.8-10.8) X10*3/uL RBC (4.20-5.50) X10*6/uL Hgb (12.0-16.0) g/dl Hct (37.0-47.0) % MCV (80.0-98.0) fL MCH (27.0-33.0) pg MCHC (31.0-35.0) g/dl RDW (11.0-16.0) % Plt Count MPV (9.4-12.3) fL Immature Gran % (Auto) (0.0-0.4) % Neut % (Auto) (45-73) % Lymph % (Auto) (20-40) % [place] % (Auto) (2-11) % Eos % (Auto) (0-4) % Baso % (Auto) (0-2) % Lymph # (Auto) (1.2-4.9) X10*3/uL [place] # (Auto) (0.1-1.2) X10*3/uL Eos # (Auto) (0.0-0.4) X10*3/uL Baso # (Auto) (0.0-0.2) X10*3/uL Abs Immat Gran (auto) (0.00-0.03) X10*3/uL Absolute Neuts (auto) (2.0-8.3) x10*3/uL Absolute Nucleated RBC (0.0-0.012) X10*3/uL Nucleated RBC % (auto) (0.0-0.2) /100WBC Smear Tech's Comments Sodium (135-145) mmol/L Potassium (3.3-5.1) mmol/L Chloride (96-108) mmol/L Carbon Dioxide (22-29) mmol/L Anion Gap (12-20) BUN (9-16) mg/dL Creatinine (0.5-1.4) mg/dL Estim Creat Clear Calc Estimated GFR Random Glucose (60-115) mg/dL Lactic Acid (0.5-2.0) mmol/L Lactic Acid F/U @ 2Hr (0.5-2.0) mmol/L Calcium (8.4-10.2) mg/dL Magnesium (1.6-2.6) mg/dL Total Bilirubin (0.0-1.0) mg/dL AST (5-31) U/L ALT (0-31) U/L Alkaline Phosphatase (39-117) U/L Troponin I High Sens < 3.5 (<3.5-17.0) ng/L B-Natriuretic Peptide < 10 (<100) pg/mL Total Protein (6.5-8.0) g/dL Albumin (3.5-5.0) g/dL Lipase (8-78) U/L Beta HCG, Quant mIU/mL Urine Color Urine Appearance Urine pH (5.0-9.0) Ur Specific [place] (1.005-1.025) Urine Protein (Neg-Trace) mg/dL Urine Glucose (UA) (Negative) mg/dL Urine Ketones (Negative) mg/dL Urine Blood (Negative) Urine Nitrite (Negative) Ur Leukocyte Esterase (Negative) Urine RBC (0-2) /HPF Urine WBC (0-5) /HPF Ur Squamous Epith Cells (0-2) /HPF Urine Bacteria (None Seen) Hyaline Casts (0-2) /LPF Salicylates (15-30) mg/dL Urine Opiates Screen (Not Detect) Urine Fentanyl Screen (Not Detect) Acetaminophen (<30) mcg/mL Ur Barbiturates Screen (Not Detect) Ur Phencyclidine Scrn (Not Detect) Ur Amphetamines Screen (Not Detect) U Benzodiazepines Scrn (Not Detect) Urine Cocaine Screen (Not Detect) U Marijuana (THC) Screen (Not Detect) Ethyl Alcohol mg/dL COVID-19 (JIMMY) Negative (Negative) COVID-19 Clin Com See Note Influenza Type A (CHEYENNE) (Negative) Influenza Type B (CHEYENNE) (Negative) Influenza A & B Note 12/20/22 12/20/22 12/20/22 Range/Units 16:58 18:39 19:42 WBC (4.8-10.8) X10*3/uL RBC (4.20-5.50) X10*6/uL Hgb (12.0-16.0) g/dl Hct (37.0-47.0) % MCV (80.0-98.0) fL MCH (27.0-33.0) pg MCHC (31.0-35.0) g/dl RDW (11.0-16.0) % Plt Count MPV (9.4-12.3) fL Immature Gran % (Auto) (0.0-0.4) % Neut % (Auto) (45-73) % Lymph % (Auto) (20-40) % [place] % (Auto) (2-11) % Eos % (Auto) (0-4) % Baso % (Auto) (0-2) % Lymph # (Auto) (1.2-4.9) X10*3/uL [place] # (Auto) (0.1-1.2) X10*3/uL Eos # (Auto) (0.0-0.4) X10*3/uL Baso # (Auto) (0.0-0.2) X10*3/uL Abs Immat Gran (auto) (0.00-0.03) X10*3/uL Absolute Neuts (auto) (2.0-8.3) x10*3/uL Absolute Nucleated RBC (0.0-0.012) X10*3/uL Nucleated RBC % (auto) (0.0-0.2) /100WBC Smear Tech's Comments Sodium (135-145) mmol/L Potassium (3.3-5.1) mmol/L Chloride (96-108) mmol/L Carbon Dioxide (22-29) mmol/L Anion Gap (12-20) BUN (9-16) mg/dL Creatinine (0.5-1.4) mg/dL Estim Creat Clear Calc Estimated GFR Random Glucose (60-115) mg/dL Lactic Acid 2.2 H* (0.5-2.0) mmol/L Lactic Acid F/U @ 2Hr (0.5-2.0) mmol/L Calcium (8.4-10.2) mg/dL Magnesium 1.4 L* (1.6-2.6) mg/dL Total Bilirubin (0.0-1.0) mg/dL AST (5-31) U/L ALT (0-31) U/L Alkaline Phosphatase (39-117) U/L Troponin I High Sens (<3.5-17.0) ng/L B-Natriuretic Peptide (<100) pg/mL Total Protein (6.5-8.0) g/dL Albumin (3.5-5.0) g/dL Lipase (8-78) U/L Beta HCG, Quant < 2 mIU/mL Urine Color Yellow Urine Appearance Clear Urine pH 6.0 (5.0-9.0) Ur Specific [place] 1.025 (1.005-1.025) Urine Protein Negative (Neg-Trace) mg/dL Urine Glucose (UA) Negative (Negative) mg/dL Urine Ketones Negative (Negative) mg/dL Urine Blood Negative (Negative) Urine Nitrite Negative (Negative) Ur Leukocyte Esterase Trace H (Negative) Urine RBC 0-2 (0-2) /HPF Urine WBC 0-5 (0-5) /HPF Ur Squamous Epith Cells 6-10 (0-2) /HPF Urine Bacteria None Seen (None Seen) Hyaline Casts 0-2 (0-2) /LPF Salicylates (15-30) mg/dL Urine Opiates Screen (Not Detect) Urine Fentanyl Screen (Not Detect) Acetaminophen (<30) mcg/mL Ur Barbiturates Screen (Not Detect) Ur Phencyclidine Scrn (Not Detect) Ur Amphetamines Screen (Not Detect) U Benzodiazepines Scrn (Not Detect) Urine Cocaine Screen (Not Detect) U Marijuana (THC) Screen (Not Detect) Ethyl Alcohol mg/dL COVID-19 (JIMMY) (Negative) COVID-19 Clin Com Influenza Type A (CHEYENNE) (Negative) Influenza Type B (CHEYENNE) (Negative) Influenza A & B Note 12/20/22 12/20/22 Range/Units 19:42 20:51 WBC (4.8-10.8) X10*3/uL RBC (4.20-5.50) X10*6/uL Hgb (12.0-16.0) g/dl Hct (37.0-47.0) % MCV (80.0-98.0) fL MCH (27.0-33.0) pg MCHC (31.0-35.0) g/dl RDW (11.0-16.0) % Plt Count MPV (9.4-12.3) fL Immature Gran % (Auto) (0.0-0.4) % Neut % (Auto) (45-73) % Lymph % (Auto) (20-40) % [place] % (Auto) (2-11) % Eos % (Auto) (0-4) % Baso % (Auto) (0-2) % Lymph # (Auto) (1.2-4.9) X10*3/uL [place] # (Auto) (0.1-1.2) X10*3/uL Eos # (Auto) (0.0-0.4) X10*3/uL Baso # (Auto) (0.0-0.2) X10*3/uL Abs Immat Gran (auto) (0.00-0.03) X10*3/uL Absolute Neuts (auto) (2.0-8.3) x10*3/uL Absolute Nucleated RBC (0.0-0.012) X10*3/uL Nucleated RBC % (auto) (0.0-0.2) /100WBC Smear Tech's Comments Sodium (135-145) mmol/L Potassium (3.3-5.1) mmol/L Chloride (96-108) mmol/L Carbon Dioxide (22-29) mmol/L Anion Gap (12-20) BUN (9-16) mg/dL Creatinine (0.5-1.4) mg/dL Estim Creat Clear Calc Estimated GFR Random Glucose (60-115) mg/dL Lactic Acid (0.5-2.0) mmol/L Lactic Acid F/U @ 2Hr 1.0 (0.5-2.0) mmol/L Calcium (8.4-10.2) mg/dL Magnesium (1.6-2.6) mg/dL Total Bilirubin (0.0-1.0) mg/dL AST (5-31) U/L ALT (0-31) U/L Alkaline Phosphatase (39-117) U/L Troponin I High Sens (<3.5-17.0) ng/L B-Natriuretic Peptide (<100) pg/mL Total Protein (6.5-8.0) g/dL Albumin (3.5-5.0) g/dL Lipase (8-78) U/L Beta HCG, Quant mIU/mL Urine Color Urine Appearance Urine pH (5.0-9.0) Ur Specific [place] (1.005-1.025) Urine Protein (Neg-Trace) mg/dL Urine Glucose (UA) (Negative) mg/dL Urine Ketones (Negative) mg/dL Urine Blood (Negative) Urine Nitrite (Negative) Ur Leukocyte Esterase (Negative) Urine RBC (0-2) /HPF Urine WBC (0-5) /HPF Ur Squamous Epith Cells (0-2) /HPF Urine Bacteria (None Seen) Hyaline Casts (0-2) /LPF Salicylates (15-30) mg/dL Urine Opiates Screen Not Detected (Not Detect) Urine Fentanyl Screen Not Detected (Not Detect) Acetaminophen (<30) mcg/mL Ur Barbiturates Screen Not Detected (Not Detect) Ur Phencyclidine Scrn Not Detected (Not Detect) Ur Amphetamines Screen Not Detected (Not Detect) U Benzodiazepines Scrn Not Detected (Not Detect) Urine Cocaine Screen Not Detected (Not Detect) U Marijuana (THC) Screen Not Detected (Not Detect) Ethyl Alcohol mg/dL COVID-19 (JIMMY) (Negative) COVID-19 Clin Com Influenza Type A (CHEYENNE) (Negative) Influenza Type B (CHEYENNE) (Negative) Influenza A & B Note Independent Interpretation I performed an independent interpretation of an: CT Scan Interpretation: Head unremarkable Radiology Impression Discussion of test interpretation with radiology: I have reviewed the radiologist's reading. Core Measures AMI core measures followed: Yes Measure exclusions: not indicated Critical Care Time Critical Care Time Critical Care Time: Yes Total Critical Care Time: 60 Attestation: I attest to this time spent taking care of the patient, obtaining history, physical, reviewing labs, imaging, speaking to my attending, speaking to specialist. Discharge Plan Discharge Clinical Impression: Syncope, Ear pain, left, Abdominal pain, Acidosis, lactic, Dehydration, Nausea & vomiting, Orthostatic hypotension, Hypomagnesemia, Viral illness Patient Disposition: Admitted As Inpatient
[2022-12-20 16:21] LABS: Basophils Percent Auto 0.3 % (0-2); Eosinophils Percent Auto 0.3 % (0-4); Hematocrit 37.6 % (37.0-47.0); Hemoglobin 12.3 g/dl (12.0-16.0); Imm Gran Abs Auto 0.03 X10*3/uL (0.00-0.03); Imm Gran Pct Auto 0.3 % (0.0-0.4); Lymphocytes Absolute Auto 0.5 X10*3/uL (1.2-4.9); MANUAL DIFF FLAG SCAN; Mean Corpuscular HGB Conc 32.7 g/dl (31.0-35.0); Mean Corpuscular Hemoglobin 27.3 pg (27.0-33.0); Mean Corpuscular Volume 83.4 fL (80.0-98.0); Mean Platelet Volume 10.4 fL (9.4-12.3); Monocytes Absolute Auto 0.4 X10*3/uL (0.1-1.2); Monocytes Percent Auto 3.7 % (2-11); Neutrophils Absolute Auto 10.3 x10*3/uL (2.0-8.3); Neutrophils Percent Auto 91.4 % (45-73); Red Blood Count 4.51 X10*6/uL (4.20-5.50); Red Cell Distribution Width 13.1 % (11.0-16.0); SCAN SMEAR FLAG 1; White Blood Count 11.3 X10*3/uL (4.8-10.8)
[2022-12-20] MEDS: 0.9 % Sodium Chloride 1,000 ML 999 ML IV ×4 (16:25→20:21)
--- NOTE | 2022-12-20 16:35 | PC.NURSE ---
Pt increasingly more alert and responsive, talking with at bedside. NSR on the monitor, bilateral IVs established. Fluids infusing.
[2022-12-20 16:39] LABS: SLIDE REVIEW VERIFIED
[2022-12-20 16:40] LABS: Alanine Aminotransferase 14 U/L (0-31); Albumin Level 4.1 g/dL (3.5-5.0); Alkaline Phosphatase 69 U/L (39-117); Anion Gap 12 (12-20); Aspartate Amino Transferase 34 U/L (5-31); Bilirubin Total 0.7 mg/dL (0.0-1.0); Blood Urea Nitrogen 15 mg/dL (9-16); Calcium 8.7 mg/dL (8.4-10.2); Carbon Dioxide 23 mmol/L (22-29); Chloride 106 mmol/L (96-108); Creatinine Clr Calc Pharmacy 102.2; Estimated Glomerular Filt Rate > 60; Ethanol < 10 mg/dL; Glucose Random 155 mg/dL (60-115); Lipase 26 U/L (8-78); Magnesium 1.4 mg/dL (1.6-2.6); Potassium 4.3 mmol/L (3.3-5.1); Sodium 137 mmol/L (135-145); Total Protein 6.7 g/dL (6.5-8.0)
[2022-12-20 16:41] LABS: B Type Natriuretic Peptide < 10 pg/mL (<100)
[2022-12-20 16:46] LABS: Troponin-I High Sensitivity < 3.5 ng/L (<3.5-17.0)
[2022-12-20 16:54] LABS: COVID-19 Test Negative (Negative); IDNOW Serial# 16C4AD1C; IDNOW Serial# BCCEAD1C; Influenza A Negative (Negative); Influenza B2 Negative (Negative)
[2022-12-20 17:04] LABS: Acetaminophen LAB < 17 mcg/mL (<30); Salicylate < 5.0 mg/dL (15-30)
[2022-12-20] MEDS: Magnesium Sulfate/H2O 2 GM/50 ML PIGGYBACK IV (17:09)
[2022-12-20 17:47] LABS: Magnesium 1.4 mg/dL (1.6-2.6)
[2022-12-20] MEDS: Acetaminophen 325 MG TABLET 650 MG PO (18:43)
--- NOTE | 2022-12-20 18:57 | ECG_ITS ---
Test Reason : syncope Blood Pressure : / mmHG Vent. Rate : 113 BPM Atrial Rate : 113 BPM P-R Int : 152 ms QRS Dur : 094 ms QT Int : 332 ms P-R-T Axes : 056 083 011 degrees QTc Int : 455 ms Sinus tachycardia Incomplete right bundle branch block Borderline ECG When compared with ECG of 02-JUL-2022 11:50, No significant change was found Referred By: Raissa Serna Electronically Signed By:JEFF DELA CRUZ
--- NOTE | 2022-12-20 19:02 | PC.NURSE ---
Patient noted to be febrile, second liter administered and tylenol. Pt continues to be lethargic but alert and oriented.
[2022-12-20 19:09] LABS: HCG Quantitative < 2 mIU/mL
[2022-12-20 19:11] LABS: Lactic Acid 2.2 mmol/L (0.5-2.0)
[2022-12-20 19:51] LABS: Appearance Urine Clear; Color Urine Yellow; Glucose Urine UA Negative (Negative); Leukocyte Esterase Urine Trace (Negative); Nitrite Urine Negative (Negative); Specific Gravity - Urine 1.025 (1.005-1.025); UMIC TRIGGER UACC YES; Urine Blood Negative (Negative); Urine Ketones Negative (Negative); Urine Protein Negative (Neg-Trace)
[2022-12-20 19:53] LABS: Bacteria Urine None Seen (None Seen); Hyaline Casts Urine 0-2 /LPF (0-2); RBC Urine 0-2 /HPF (0-2); WBC Urine 0-5 /HPF (0-5)
[2022-12-20 20:05] LABS: Amphetamine Screen Urine Not Detected (Not Detect); Barbiturates, Urine Not Detected (Not Detect); Benzodiazepines Screen Urine Not Detected (Not Detect); Cannabinoid Screen Urine Not Detected (Not Detect); Cocaine Screen Urine Not Detected (Not Detect); Fentanyl, urine Not Detected (Not Detect); Opiate Screen Urine Not Detected (Not Detect); Phencyclidine Screen Urine Not Detected (Not Detect)
[2022-12-20] MEDS: Midodrine HCl 5 MG TABLET PO (20:20)
[2022-12-20] MEDS: Piperacillin Sodium/Tazobactam 3.375 GM in 0.9 % Sodium Chloride 50 ML IV (20:20)
[2022-12-20] MEDS: iohexoL 350 MG/ML 100 ML INFUS..BTL IV (20:20)
[2022-12-20] MEDS: fentaNYL citrate/PF 100 MCG/2 ML VIAL 25 MCG IVPUSH (20:27)
--- NOTE | 2022-12-20 20:34 | MHC.EDTECH ---
per pt worklist pt needs orthostatic vitals. I approached the provider about doing them and she stated to hold off for know and will let me know when they need to be done .
[2022-12-20 20:41] LABS: Reflex Lactate? Lactic Acid Added
--- NOTE | 2022-12-20 21:51 | PC.NURSE ---
pt assessed,alert and oriented x3, c/o lower abd pain, medicated with fentanly ivp,, hypothesize medicated with midodrine po
--- NOTE | 2022-12-20 23:26 | P.HPHOSP_ITS ---
History of Present Illness Date of Service: 12/20/22 Chief Complaint: syncope, vomiting Uzbek-speaking only, history is obtained with the help of an industrial training specialist 27year old female with past medical history of recurrent syncope, migraine headaches presents to the hospital with complaints of multiple syncopal e pisodes as well as vomiting, with right quadrant abd pain. pain is upper and lower right abd. 7/10, constant, non-radiating, no alleviating or exacerbating factors. Reports that she woke up this morning and had couple of episodes of vomiting, she also had 3 episodes of syncope. she reports that she continues to feel dizzy and weak. She denies any recent sick contacts or travel. feels febrile, has chills, denies any diarrhea or constipation, no urinary symptoms and no lower extremity edema. On arrival to the ED patient found to have a fever of 102.4, heart rate of 116, blood pressure of 92/47 Labs are significant for WBC count of 11.3, lactic acid of 2.2 improved after fluids, magnesium bone 0.4, AST of 34, ALT of 14, troponin negative, BNP negative, Abdomen pelvic CT shows no acute intra-abdominal process, no findings of acute appendicitis, moderate to large amount of stool throughout the colon, chest x- ray negative, his CT negative patient received 4 L of IV fluids, remained dizzy, orthostatics are significantly positive Review of Systems Review of Systems: Yes all other systems are reviewed and are negative [facility] Medical History Acute bronchitis Hospital discharge follow-up Left ear pain Migraine Physical exam Syncope Family History Father Asthma Mother No problems noted. Paternal Uncle Colon cancer Surgical History History of section History of tubal ligation Social History Household Members: Children Housing: Apartment Alcohol intake: never Patient Tobacco Use Status: Never used Tobacco e-Cigarette/Vaping Use: Never Used Second Hand Smoke Exposure: No Advance Directives: No Advance Directives Information Provided: No service: No Current occupational status: employed Current occupational exposures/hazards: No Cognitive needs: No Hearing needs: No Vision needs: No Meds Allergies Allergy/AdvReac Type Severity Reaction Status Date / Time No Known Allergies Allergy Verified 12/11/22 14:46 [No Known Allergies*] Physical Exam Vital Signs and Narrative: Vital Signs: Last Vital Signs Temp 100.1 F 12/20/22 20:06 Pulse 116 H 12/20/22 23:21 Resp 16 12/20/22 20:06 BP 81/41 L 12/20/22 23:21 Pulse Ox 100 12/20/22 20:06 O2 Del Method 12/20/22 20:06 BMI result Body Mass Index 23.3 Const: General: cooperative and no acute distress Orientation/consciousness: patient oriented x3 Eyes: General: appearance normal, both eyes and all related structures Resp: Effort & Inspection: normal respiratory effort Auscultation: clear to auscultation bilaterally Cardio: Rate: regular rate Rhythm: regular rhythm GI: Other: abd is soft, tender in the right upper and lower quadrant abd Palpation (GI): Soft to palpation Auscultation: normal bowel sounds Skin: General skin exam: no rashes or lesions noted Neuro: General: patient oriented x3 Cognition (Neuro): normal cognition Extrem: General: Yes normal to inspection and Yes no pedal edema Results Labs 12/20/22 16:12 12/20/22 16:12 Labs: Laboratory Results - last 24 hr 12/20/22 12/20/22 12/20/22 16:12 16:12 16:12 MCV 83.4 MCH 27.3 MCHC 32.7 RDW 13.1 Plt Count TNP MPV 10.4 Immature Gran % (Auto) 0.3 Neut % (Auto) 91.4 H Lymph % (Auto) 4.0 L Hick[place] % (Auto) 3.7 Eos % (Auto) 0.3 Baso % (Auto) 0.3 Lymph # (Auto) 0.5 L Hick[place] # (Auto) 0.4 Eos # (Auto) 0.0 Baso # (Auto) 0.0 Abs Immat Gran (auto) 0.03 Absolute Neuts (auto) 10.3 H Absolute Nucleated RBC 0.000 Nucleated RBC % (auto) 0.0 Smear Tech's Comments VERIFIED Anion Gap 12 Estim Creat Clear Calc 102.2 Estimated GFR > 60 Random Glucose 155 H Lactic Acid Lactic Acid F/U @ 2Hr Calcium 8.7 Magnesium 1.4 L* Total Bilirubin 0.7 AST 34 H ALT 14 Alkaline Phosphatase 69 Troponin I High Sens B-Natriuretic Peptide Total Protein 6.7 Albumin 4.1 Lipase 26 Beta HCG, Quant Urine Color Urine Appearance Urine pH Ur Specific [place] Urine Protein Urine Glucose (UA) Urine Ketones Urine Blood Urine Nitrite Ur Leukocyte Esterase Urine RBC Urine WBC Ur Squamous Epith Cells Urine Bacteria Hyaline Casts Salicylates < 5.0 L Urine Opiates Screen Urine Fentanyl Screen Acetaminophen < 17 Ur Barbiturates Screen Ur Phencyclidine Scrn Ur Amphetamines Screen U Benzodiazepines Scrn Urine Cocaine Screen U Marijuana (THC) Screen Ethyl Alcohol < 10 COVID-19 (JIMMY) COVID-19 Clin Com Influenza Type A (CHEYENNE) Negative Influenza Type B (CHEYENNE) Negative Influenza A & B Note See Note 12/20/22 12/20/22 12/20/22 16:12 16:12 16:12 MCV MCH MCHC RDW Plt Count MPV Immature Gran % (Auto) Neut % (Auto) Lymph % (Auto) Hickman % (Auto) Eos % (Auto) Baso % (Auto) Lymph # (Auto) Hickman # (Auto) Eos # (Auto) Baso # (Auto) Abs Immat Gran (auto) Absolute Neuts (auto) Absolute Nucleated RBC Nucleated RBC % (auto) Smear Tech's Comments Anion Gap Estim Creat Clear Calc Estimated GFR Random Glucose Lactic Acid Lactic Acid F/U @ 2Hr Calcium Magnesium Total Bilirubin AST ALT Alkaline Phosphatase Troponin I High Sens < 3.5 B-Natriuretic Peptide < 10 Total Protein Albumin Lipase Beta HCG, Quant Urine Color Urine Appearance Urine pH Ur Specific [place] Urine Protein Urine Glucose (UA) Urine Ketones Urine Blood Urine Nitrite Ur Leukocyte Esterase Urine RBC Urine WBC Ur Squamous Epith Cells Urine Bacteria Hyaline Casts Salicylates Urine Opiates Screen Urine Fentanyl Screen Acetaminophen Ur Barbiturates Screen Ur Phencyclidine Scrn Ur Amphetamines Screen U Benzodiazepines Scrn Urine Cocaine Screen U Marijuana (THC) Screen Ethyl Alcohol COVID-19 (JIMMY) Negative COVID-19 Clin Com See Note Influenza Type A (CHEYENNE) Influenza Type B (CHEYENNE) Influenza A & B Note 12/20/22 12/20/22 12/20/22 16:58 18:39 19:42 MCV MCH MCHC RDW Plt Count MPV Immature Gran % (Auto) Neut % (Auto) Lymph % (Auto) Hick[place] % (Auto) Eos % (Auto) Baso % (Auto) Lymph # (Auto) Hickman # (Auto) Eos # (Auto) Baso # (Auto) Abs Immat Gran (auto) Absolute Neuts (auto) Absolute Nucleated RBC Nucleated RBC % (auto) Smear Tech's Comments Anion Gap Estim Creat Clear Calc Estimated GFR Random Glucose Lactic Acid 2.2 H* Lactic Acid F/U @ 2Hr Calcium Magnesium 1.4 L* Total Bilirubin AST ALT Alkaline Phosphatase Troponin I High Sens B-Natriuretic Peptide Total Protein Albumin Lipase Beta HCG, Quant < 2 Urine Color Yellow Urine Appearance Clear Urine pH 6.0 Ur Specific [place] 1.025 Urine Protein Negative Urine Glucose (UA) Negative Urine Ketones Negative Urine Blood Negative Urine Nitrite Negative Ur Leukocyte Esterase Trace H Urine RBC 0-2 Urine WBC 0-5 Ur Squamous Epith Cells 6-10 Urine Bacteria None Seen Hyaline Casts 0-2 Salicylates Urine Opiates Screen Urine Fentanyl Screen Acetaminophen Ur Barbiturates Screen Ur Phencyclidine Scrn Ur Amphetamines Screen U Benzodiazepines Scrn Urine Cocaine Screen U Marijuana (THC) Screen Ethyl Alcohol COVID-19 (JIMMY) COVID-19 Clin Com Influenza Type A (CHEYENNE) Influenza Type B (CHEYENNE) Influenza A & B Note 12/20/22 12/20/22 19:42 20:51 MCV MCH MCHC RDW Plt Count MPV Immature Gran % (Auto) Neut % (Auto) Lymph % (Auto) Hick[place] % (Auto) Eos % (Auto) Baso % (Auto) Lymph # (Auto) Hickman # (Auto) Eos # (Auto) Baso # (Auto) Abs Immat Gran (auto) Absolute Neuts (auto) Absolute Nucleated RBC Nucleated RBC % (auto) Smear Tech's Comments Anion Gap Estim Creat Clear Calc Estimated GFR Random Glucose Lactic Acid Lactic Acid F/U @ 2Hr 1.0 Calcium Magnesium Total Bilirubin AST ALT Alkaline Phosphatase Troponin I High Sens B-Natriuretic Peptide Total Protein Albumin Lipase Beta HCG, Quant Urine Color Urine Appearance Urine pH Ur Specific [place] Urine Protein Urine Glucose (UA) Urine Ketones Urine Blood Urine Nitrite Ur Leukocyte Esterase Urine RBC Urine WBC Ur Squamous Epith Cells Urine Bacteria Hyaline Casts Salicylates Urine Opiates Screen Not Detected Urine Fentanyl Screen Not Detected Acetaminophen Ur Barbiturates Screen Not Detected Ur Phencyclidine Scrn Not Detected Ur Amphetamines Screen Not Detected U Benzodiazepines Scrn Not Detected Urine Cocaine Screen Not Detected U Marijuana (THC) Screen Not Detected Ethyl Alcohol COVID-19 (JIMMY) COVID-19 Clin Com Influenza Type A (CHEYENNE) Influenza Type B (CHEYENNE) Influenza A & B Note Imaging Radiologist's Impressions: Impressions Head CT 12/20/22 16:35 IMPRESSION: No acute intracranial pathology. Chest X-Ray 12/20/22 16:55 IMPRESSION: No acute pulmonary process. Abdomen/Pelvis CT 12/20/22 20:21 IMPRESSION: 1. No acute intra-abdominal process identified. No findings of acute appendicitis. 2. Moderate to large amount of formed stool throughout the colon. Correlate clinically with signs or symptoms of constipation. Doppler Study Ultrasound 12/20/22 21:37 IMPRESSION: 1. No evidence of ovarian torsion. 2. Small amount of free pelvic fluid. 3. Normal uterus and ovaries. Pelvic/Transvag US 12/20/22 21:37 IMPRESSION: 1. No evidence of ovarian torsion. 2. Small amount of free pelvic fluid. 3. Normal uterus and ovaries. Assessment and Plan (1) Syncope: Status: Acute (2) Orthostatic hypotension: Status: Acute (3) Hypomagnesemia: Status: Acute (4) Nausea & vomiting: Status: Acute (5) Acidosis, lactic: Status: Acute (6) Abdominal pain: Status: Acute Plan this is a 27 yo F with pmhx of Migraines and syncope presents to hospital w complaints of n/v/abd pain as well as multiple episodes of syncope #syncope - chronic with episodes for many years - has had extensive work up for syncope and follows with neurology - likely related to orthostatic hypotension as pt is significantly hypotensive on standing - will tx with IVF - monitor # Orthostatic hypotension - possibly 2/2 dehydration/vomiting/poor po intake - remains positive despite 4 L of fluids - will admit - IVF maintenance - rpt orthostatic vitals in am # ABd pain, N/V - likely viral gastroenteritis - no evidence of gallbladder ds on CT, no appendicitis - given fever and leukocytosis will cover w abx pending cultures #LAcidosis - likely 2/2 dehydration - will tx with fluids # hypomag - repleted - follow mag level DVT ppx: early ambulation given sig orthostatic hypotension will keep pt inpatient for min 2 nights for fu rther management and monitoring Time Spent With Patient Time: Total time managing care of this patient today ____ minutes. Quality Stroke Does the patient have a stroke diagnosis?: No VTE Prior VTE?: No VTE Risk Level:: Medical - low VTE Device Contraindication: Treatment Not Indicated VTE Drug Contraindication: Treatment Not Indicated
[2022-12-21] MEDS: Lactated Ringers 1,000 ML 100 ML IVCONT ×3 (00:40→19:04)
[2022-12-21] MEDS: Piperacillin Sodium/Tazobactam 3.375 GM in 0.9 % Sodium Chloride 50 ML IV ×4 (05:20→22:42)
--- NOTE | 2022-12-21 05:21 | PC.NURSE ---
pt antibiotics was late due to downtime
[2022-12-21 07:00] LABS: Glucose, Whole Blood 121 mg/dL (60-115)
[2022-12-21 07:04] LABS: MANUAL DIFF FLAG NO
[2022-12-21 07:06] LABS: Basophils Percent Auto 0.3 % (0-2); Hematocrit 31.3 % (37.0-47.0); Hemoglobin 10.2 g/dl (12.0-16.0); Imm Gran Abs Auto 0.02 X10*3/uL (0.00-0.03); Imm Gran Pct Auto 0.3 % (0.0-0.4); Lymphocytes Absolute Auto 0.7 X10*3/uL (1.2-4.9); Lymphocytes Percent Auto 10.5 % (20-40); Mean Corpuscular HGB Conc 32.6 g/dl (31.0-35.0); Mean Corpuscular Hemoglobin 27.3 pg (27.0-33.0); Mean Corpuscular Volume 83.7 fL (80.0-98.0); Mean Platelet Volume 10.4 fL (9.4-12.3); Monocytes Absolute Auto 0.3 X10*3/uL (0.1-1.2); Monocytes Percent Auto 4.9 % (2-11); Neutrophils Absolute Auto 5.3 x10*3/uL (2.0-8.3); Platelet Count 177 X10*3/uL (160-400); Red Blood Count 3.74 X10*6/uL (4.20-5.50); Red Cell Distribution Width 13.3 % (11.0-16.0); White Blood Count 6.3 X10*3/uL (4.8-10.8)
--- NOTE | 2022-12-21 07:13 | PC.NURSE ---
Patient resting with boyfriend at bedside AOx 4 primarily Slovak speaking, left ear pain no drainage noted. Complaint of some abdominal discomfort. No respiratory distress noted. Spoke with pharmacy to adjust zosyn dose times will CTM
[2022-12-21 07:36] LABS: Anion Gap 11 (12-20); Blood Urea Nitrogen 6 mg/dL (9-16); Carbon Dioxide 20 mmol/L (22-29); Chloride 108 mmol/L (96-108); Creatinine Clr Calc Pharmacy 129.5; Estimated Glomerular Filt Rate > 60; Glucose Random 98 mg/dL (60-115); Potassium 3.5 mmol/L (3.3-5.1); Sodium 135 mmol/L (135-145)
[2022-12-21 07:46] LABS: Calcium 7.2 mg/dL (8.4-10.2)
--- NOTE | 2022-12-21 08:55 | PHA.MEDREC ---
Pharmacy Consult ? Medication Reconciliation Pharmacy has completed the medication reconciliation. Patient reports she is no longer taking sertraline. Britta Culver, BriiD
[2022-12-21 09:21] VITALS: BP 64/52; PULSE 111; RESP 18; O2SAT 97
[2022-12-21] MEDS: polyethylene glycoL 3350 17 GM POWD.PACK PO (09:22)
[2022-12-21] MEDS: Midodrine HCl 5 MG TABLET PO ×3 (09:22→20:29)
--- NOTE | 2022-12-21 09:31 | PC.NURSE ---
Attempt to call report at [phone] inpatient RN will call back
[2022-12-21 09:32] VITALS: BP 97/44; PULSE 101; RESP 19; TEMP 37.2; O2SAT 97
--- NOTE | 2022-12-21 10:47 | MHC.CM.PN ---
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
--- NOTE | 2022-12-21 11:24 | P.PNIM_ITS ---
Subjective Subjective Date of Service: 12/21/22 Interval History: the patient was seen and evaluated this morning Laying in bed, feels better since coming to the hospital Still complaining of generalized abdominal pain and left ear pain Denies any fever, chills or shortness of breath No reported other overnight events. Review of Systems Reported feeling dizzy and lightheaded upon standing up Denies any vomiting or diarrhea Ear pain, left ear Review of Systems: Yes all other systems are reviewed and are negative Physical Exam Vital Signs: Vital Signs: Last Vital Signs Temp 98.9 F 12/21/22 09:32 Pulse 101 H 12/21/22 09:32 Resp 19 12/21/22 09:32 BP 97/44 L 12/21/22 09:32 Pulse Ox 97 12/21/22 09:32 O2 Del Method 12/21/22 09:32 BMI result Body Mass Index 23.3 Const: Other: Constitutional : Awake, interactive, not in distress Neck : Normal inspection, Supple Ears: Clear right ear, mild erythema left ear with no drainage Cardiovascular : RRR, no JVP, no lower extremity edema Respiratory : good bilateral air entry, no crackles, wheezes or rhonchi Gastrointestinal: soft, lax, Normal bowel sounds, mild generalized tenderness with no surgical signs Skin : Warm, Dry Neurological : Alert & oriented x3, No focal deficit Objective Data Active Medications Acetaminophen (Acetaminophen 325 Mg Tablet) 650 mg PO Q6H PRN PRN Reason: Pain, Mild (Pain Scale 1-3) Docusate Sodium (Docusate Sodium 100 Mg Capsule) 100 mg PO DAILY PRN PRN Reason: Constipation Lactated Ringer's (Lr) 1,000 mls @ 100 mls/hr IVCONT .Q10H [facility] Last Admin: 12/21/22 09:22 Dose: 100 mls/hr Documented By: MONIQUE Piperacillin Sod/Tazobactam (Sod 3.375 gm/ Sodium Chloride) 50 mls @ 100 mls/hr IV Q6H [facility] Lactulose (Lactulose 20 Gm/30 Ml Solution) 20 gm PO BID [facility] Midodrine (Midodrine Hcl 5 Mg Tablet) 5 mg PO TID [facility] Last Admin: 12/21/22 09:22 Dose: 5 mg Documented By: MONIQUE Ondansetron HCl (Ondansetron Hcl 4 Mg/2 Ml Vial) 4 mg IVPUSH Q8H PRN PRN Reason: Nausea and Vomiting Pharmacy Consult (Consult Rx Perform Med Rec) 1 each MISCELLANE ONCE PRN PRN Reason: Consult order Polyethylene Glycol (Polyethylene Glycol 3350 17 Gm Powd.Pack) 17 gm PO DAILY [facility] Last Admin: 12/21/22 09:22 Dose: 17 gm Documented By: MONIQUE Sodium Chloride (0.9 % Sodium Chloride Flush 3 Ml Syringe) 3 ml IVFLUSH QSHIFT [facility] Last Admin: 12/21/22 07:43 Dose: Not Given Documented By: MONIQUE Non-Admin Reason: IV Running Labs 12/21/22 06:49 12/21/22 06:49 Labs: Laboratory Results - last 24 hr 12/20/22 12/20/22 12/20/22 16:04 16:12 16:12 MCV 83.4 MCH 27.3 MCHC 32.7 RDW 13.1 Plt Count TNP MPV 10.4 Immature Gran % (Auto) 0.3 Neut % (Auto) 91.4 H Lymph % (Auto) 4.0 L [place] % (Auto) 3.7 Eos % (Auto) 0.3 Baso % (Auto) 0.3 Lymph # (Auto) 0.5 L [place] # (Auto) 0.4 Eos # (Auto) 0.0 Baso # (Auto) 0.0 Abs Immat Gran (auto) 0.03 Absolute Neuts (auto) 10.3 H Absolute Nucleated RBC 0.000 Nucleated RBC % (auto) 0.0 Smear Tech's Comments VERIFIED Anion Gap Estim Creat Clear Calc Estimated GFR POC Glucose 121 H Random Glucose Lactic Acid Lactic Acid F/U @ 2Hr Calcium Magnesium Total Bilirubin AST ALT Alkaline Phosphatase Troponin I High Sens B-Natriuretic Peptide Total Protein Albumin Lipase Beta HCG, Quant Urine Color Urine Appearance Urine pH Ur Specific [place] Urine Protein Urine Glucose (UA) Urine Ketones Urine Blood Urine Nitrite Ur Leukocyte Esterase Urine RBC Urine WBC Ur Squamous Epith Cells Urine Bacteria Hyaline Casts Salicylates Urine Opiates Screen Urine Fentanyl Screen Acetaminophen Ur Barbiturates Screen Ur Phencyclidine Scrn Ur Amphetamines Screen U Benzodiazepines Scrn Urine Cocaine Screen U Marijuana (THC) Screen Ethyl Alcohol COVID-19 ([facility]) COVID-19 Clin Com Influenza Type A ([facility]) Negative Influenza Type B ([facility]) Negative Influenza A & B Note See Note 12/20/22 12/20/22 12/20/22 16:12 16:12 16:12 MCV MCH MCHC RDW Plt Count MPV Immature Gran % (Auto) Neut % (Auto) Lymph % (Auto) [place] % (Auto) Eos % (Auto) Baso % (Auto) Lymph # (Auto) [place] # (Auto) Eos # (Auto) Baso # (Auto) Abs Immat Gran (auto) Absolute Neuts (auto) Absolute Nucleated RBC Nucleated RBC % (auto) Smear Tech's Comments Anion Gap 12 Estim Creat Clear Calc 102.2 Estimated GFR > 60 POC Glucose Random Glucose 155 H Lactic Acid Lactic Acid F/U @ 2Hr Calcium 8.7 Magnesium 1.4 L* Total Bilirubin 0.7 AST 34 H ALT 14 Alkaline Phosphatase 69 Troponin I High Sens < 3.5 B-Natriuretic Peptide < 10 Total Protein 6.7 Albumin 4.1 Lipase 26 Beta HCG, Quant Urine Color Urine Appearance Urine pH Ur Specific [place] Urine Protein Urine Glucose (UA) Urine Ketones Urine Blood Urine Nitrite Ur Leukocyte Esterase Urine RBC Urine WBC Ur Squamous Epith Cells Urine Bacteria Hyaline Casts Salicylates < 5.0 L Urine Opiates Screen Urine Fentanyl Screen Acetaminophen < 17 Ur Barbiturates Screen Ur Phencyclidine Scrn Ur Amphetamines Screen U Benzodiazepines Scrn Urine Cocaine Screen U Marijuana (THC) Screen Ethyl Alcohol < 10 COVID-19 ([facility]MY) COVID-19 Clin Com Influenza Type A ([facility]) Influenza Type B ([facility]) Influenza A & B Note 12/20/22 12/20/22 12/20/22 16:12 16:58 18:39 MCV MCH MCHC RDW Plt Count MPV Immature Gran % (Auto) Neut % (Auto) Lymph % (Auto) [place] % (Auto) Eos % (Auto) Baso % (Auto) Lymph # (Auto) [place] # (Auto) Eos # (Auto) Baso # (Auto) Abs Immat Gran (auto) Absolute Neuts (auto) Absolute Nucleated RBC Nucleated RBC % (auto) Smear Tech's Comments Anion Gap Estim Creat Clear Calc Estimated GFR POC Glucose Random Glucose Lactic Acid 2.2 H* Lactic Acid F/U @ 2Hr Calcium Magnesium 1.4 L* Total Bilirubin AST ALT Alkaline Phosphatase Troponin I High Sens B-Natriuretic Peptide Total Protein Albumin Lipase Beta HCG, Quant < 2 Urine Color Urine Appearance Urine pH Ur Specific [place] Urine Protein Urine Glucose (UA) Urine Ketones Urine Blood Urine Nitrite Ur Leukocyte Esterase Urine RBC Urine WBC Ur Squamous Epith Cells Urine Bacteria Hyaline Casts Salicylates Urine Opiates Screen Urine Fentanyl Screen Acetaminophen Ur Barbiturates Screen Ur Phencyclidine Scrn Ur Amphetamines Screen U Benzodiazepines Scrn Urine Cocaine Screen U Marijuana (THC) Screen Ethyl Alcohol COVID-19 ([facility]IMMY) Negative COVID-19 Clin Com See Note Influenza Type A ([facility]) Influenza Type B ([facility]) Influenza A & B Note 12/20/22 12/20/22 12/20/22 19:42 19:42 20:51 MCV MCH MCHC RDW Plt Count MPV Immature Gran % (Auto) Neut % (Auto) Lymph % (Auto) [place] % (Auto) Eos % (Auto) Baso % (Auto) Lymph # (Auto) [place] # (Auto) Eos # (Auto) Baso # (Auto) Abs Immat Gran (auto) Absolute Neuts (auto) Absolute Nucleated RBC Nucleated RBC % (auto) Smear Tech's Comments Anion Gap Estim Creat Clear Calc Estimated GFR POC Glucose Random Glucose Lactic Acid Lactic Acid F/U @ 2Hr 1.0 Calcium Magnesium Total Bilirubin AST ALT Alkaline Phosphatase Troponin I High Sens B-Natriuretic Peptide Total Protein Albumin Lipase Beta HCG, Quant Urine Color Yellow Urine Appearance Clear Urine pH 6.0 Ur Specific [place] 1.025 Urine Protein Negative Urine Glucose (UA) Negative Urine Ketones Negative Urine Blood Negative Urine Nitrite Negative Ur Leukocyte Esterase Trace H Urine RBC 0-2 Urine WBC 0-5 Ur Squamous Epith Cells 6-10 Urine Bacteria None Seen Hyaline Casts 0-2 Salicylates Urine Opiates Screen Not Detected Urine Fentanyl Screen Not Detected Acetaminophen Ur Barbiturates Screen Not Detected Ur Phencyclidine Scrn Not Detected Ur Amphetamines Screen Not Detected U Benzodiazepines Scrn Not Detected Urine Cocaine Screen Not Detected U Marijuana (THC) Screen Not Detected Ethyl Alcohol COVID-19 ([facility]IMMY) COVID-19 Clin Com Influenza Type A ([facility]) Influenza Type B ([facility]) Influenza A & B Note 12/21/22 12/21/22 06:49 06:49 MCV 83.7 MCH 27.3 MCHC 32.6 RDW 13.3 Plt Count 177 MPV 10.4 Immature Gran % (Auto) 0.3 Neut % (Auto) 84.0 H Lymph % (Auto) 10.5 L [place] % (Auto) 4.9 Eos % (Auto) 0.0 Baso % (Auto) 0.3 Lymph # (Auto) 0.7 L [place] # (Auto) 0.3 Eos # (Auto) 0.0 Baso # (Auto) 0.0 Abs Immat Gran (auto) 0.02 Absolute Neuts (auto) 5.3 Absolute Nucleated RBC 0.000 Nucleated RBC % (auto) 0.0 Smear Tech's Comments Anion Gap 11 L Estim Creat Clear Calc 129.5 Estimated GFR > 60 POC Glucose Random Glucose 98 Lactic Acid Lactic Acid F/U @ 2Hr Calcium 7.2 L D Magnesium Total Bilirubin AST ALT Alkaline Phosphatase Troponin I High Sens B-Natriuretic Peptide Total Protein Albumin Lipase Beta HCG, Quant Urine Color Urine Appearance Urine pH Ur Specific [place] Urine Protein Urine Glucose (UA) Urine Ketones Urine Blood Urine Nitrite Ur Leukocyte Esterase Urine RBC Urine WBC Ur Squamous Epith Cells Urine Bacteria Hyaline Casts Salicylates Urine Opiates Screen Urine Fentanyl Screen Acetaminophen Ur Barbiturates Screen Ur Phencyclidine Scrn Ur Amphetamines Screen U Benzodiazepines Scrn Urine Cocaine Screen U Marijuana (THC) Screen Ethyl Alcohol COVID-19 ([facility]IMMY) COVID-19 Clin Com Influenza Type A ([facility]) Influenza Type B ([facility]) Influenza A & B Note Assessment and Plan (1) Syncope: Status: Acute (2) Orthostatic hypotension: Status: Acute (3) Abdominal pain: Status: Acute (4) Ear pain, left: Status: Acute Plan this is a 27 yo F with pmhx of Migraines and syncope presents to hospital w complaints of n/v/abd pain as well as multiple episodes of syncope #syncope secondary to orthostatic hypotension Reported chronic problem with episodes for many years, had extensive work up for syncope and follows with neurology Continue with IVF Treat GI symptoms conservatively Repeat orthostatic vitals Low-dose midodrine for today # ABd pain, N/V Could be from viral gastroenteritis Images negative for any acute findings Covered with abx pending cultures # left ear pain Otitis media, to be discharged on oral antibiotics #LAcidosis 2/2 dehydration Improved with fluids # hypomag repleted follow Mg level DVT ppx: early ambulation given sig orthostatic hypotension patient will need overnight hospital stay for further management and monitoring Time Spent With Patient Time: Total time managing care of this patient today ____ minutes. Quality Stroke Does the patient have a stroke diagnosis?: No VTE Prior VTE?: No VTE Risk Level:: Medical - low VTE Device Contraindication: Treatment Not Indicated VTE Drug Contraindication: Treatment Not Indicated
[2022-12-21 11:32] VITALS: BP 102/56; PULSE 90; RESP 18; TEMP 36.8; O2SAT 98
[2022-12-21] MEDS: Lactulose 20 GM/30 ML SOLUTION PO ×2 (12:39→20:29)
[2022-12-21] MEDS: Acetaminophen 325 MG TABLET 650 MG PO ×2 (12:58→19:03)
[2022-12-21] MEDS: 0.9 % Sodium Chloride Flush 3 ML SYRINGE IVFLUSH (15:33)
[2022-12-21 15:37] VITALS: BP 97/53; PULSE 87; RESP 16; TEMP 36.3; O2SAT 98
[2022-12-21 19:32] VITALS: BP 99/47; PULSE 80; RESP 16; TEMP 36.4; O2SAT 97
[2022-12-22] VITALS (8 sets, daily range): BP systolic 90–111; BP diastolic 50–65; PULSE 60–77; RESP 18; TEMP 36.2–37.1; O2SAT 96–100
[2022-12-22] MEDS: Acetaminophen 325 MG TABLET 650 MG PO ×3 (03:35→14:46)
[2022-12-22] MEDS: Lactated Ringers 1,000 ML 100 ML IVCONT ×2 (03:37→14:46)
[2022-12-22] MEDS: Piperacillin Sodium/Tazobactam 3.375 GM in 0.9 % Sodium Chloride 50 ML IV ×4 (04:56→22:39)
[2022-12-22 07:22] LABS: Blood Urea Nitrogen 3 mg/dL (9-16); Creatinine Clr Calc Pharmacy 125.3; Estimated Glomerular Filt Rate > 60; Glucose Random 91 mg/dL (60-115)
[2022-12-22 07:29] LABS: Anion Gap 9 (12-20); Calcium 7.9 mg/dL (8.4-10.2); Carbon Dioxide 25 mmol/L (22-29); Chloride 110 mmol/L (96-108); Potassium 4.1 mmol/L (3.3-5.1); Sodium 140 mmol/L (135-145)
[2022-12-22 07:54] LABS: Magnesium 2.1 mg/dL (1.6-2.6)
[2022-12-22] MEDS: Lactulose 20 GM/30 ML SOLUTION PO ×2 (08:27→20:30)
[2022-12-22] MEDS: Midodrine HCl 5 MG TABLET PO ×3 (08:27→20:30)
[2022-12-22] MEDS: polyethylene glycoL 3350 17 GM POWD.PACK PO (08:28)
[2022-12-22] MEDS: 0.9 % Sodium Chloride Flush 3 ML SYRINGE IVFLUSH ×2 (08:29→20:31)
[2022-12-22] MEDS: ondansetron HCL 4 MG/2 ML VIAL IVPUSH ×2 (10:27→17:42)
--- NOTE | 2022-12-22 10:40 | P.CDIC_ITS ---
CDI Concurrent Query Documentation Clarification: PHYSICIAN'S DOCUMENTATION REQUEST Date of Query: 12/22/22 1042 Patient Name: Ora Hernandez Admit Date: 12/21/22 Dear Doctor, A review of the medical record indicates additional documentation may be needed. Please review below and update the documentation accordingly. Clinical Indicators: Is there a diagnosis that correlates with the findings below: Risk Factors/Clinical Indicators/Treatments POA/TREAT/RESOLVED/RULE OUT Labs & Vitals on 12/20: WBCs - 11.3 Lactic acid - 2.2 Patient tachycardic with HR reaching 125 Patient febrile with temp reaching 102.4 Other indicators/risk factors: Patient receiving Zosyn Patient being treated for possible viral gastroenteritis Based on the above information and the recognized standard for sepsis, could you please clarify in the Progress Notes if this diagnoses is still accurate and reflective of the patient's condition to ensure quality of the medical record. * Sepsis is/was present and is a clinical diagnosis based on (please include this additional support in the medical record) * After study (the condition) has been ruled out * Other (please specify) * Unable to determine Use of terms such as suspected, likely, concern for, or probable (associated with a specific diagnosis that is being evaluated, monitored, or treated as if it exists) are acceptable and can be coded in the inpatient setting, when documented at the time of discharge. Thank you, Ericka Santamaria MS, RN, CCRN Extension: [phone] Please use your independent medical judgment in providing your response. THIS QUERY IS PART OF THE PERMANENT MEDICAL RECORD Provider Response: Other Other Diagnosis: SIRS at presentaiton, no clear source of infection
--- NOTE | 2022-12-22 11:18 | P.PNIM_ITS ---
Subjective Subjective Date of Service: 12/22/22 Interval History: the patient was seen and evaluated this morning feels better since coming to the hospital improved abdominal pain and left ear pain Denies any fever, chills or shortness of breath No reported other overnight events. Review of Systems still reporting dizzy and lightheaded upon standing up Denies any vomiting or diarrhea improved Ear pain, left ear Physical Exam Vital Signs: Vital Signs: Last Vital Signs Temp 98.1 F 12/22/22 08:00 Pulse 76 12/22/22 08:00 Resp 18 12/22/22 08:00 BP 111/65 12/22/22 08:00 Pulse Ox 99 12/22/22 08:00 O2 Del Method 12/22/22 08:00 BMI result Body Mass Index 23.3 Const: Other: Constitutional : Awake, interactive, not in distress Neck : Normal inspection, Supple Ears: Clear right ear, mild erythema left ear with no drainage Cardiovascular : RRR, no JVP, no lower extremity edema Respiratory : good bilateral air entry, no crackles, wheezes or rhonchi Gastrointestinal: soft, lax, Normal bowel sounds, mild epigastric tenderness with no surgical signs Skin : Warm, Dry Neurological : Alert & oriented x3, No focal deficit Objective Data Active Medications Acetaminophen (Acetaminophen 325 Mg Tablet) 650 mg PO Q6H PRN PRN Reason: Pain, Mild (Pain Scale 1-3) Last Admin: 12/22/22 08:47 Dose: 650 mg Documented By: KALI Docusate Sodium (Docusate Sodium 100 Mg Capsule) 100 mg PO DAILY PRN PRN Reason: Constipation Lactated Ringer's (Lr) 1,000 mls @ 100 mls/hr IVCONT .Q10H [facility] Last Admin: 12/22/22 03:37 Dose: 100 mls/hr Documented By: BRYSON Piperacillin Sod/Tazobactam (Sod 3.375 gm/ Sodium Chloride) 50 mls @ 100 mls/hr IV Q6H [facility] Last Admin: 12/22/22 10:27 Dose: 100 mls/hr Documented By: KALI Lactulose (Lactulose 20 Gm/30 Ml Solution) 20 gm PO BID [facility] Last Admin: 12/22/22 08:27 Dose: 20 gm Documented By: KALI Midodrine (Midodrine Hcl 5 Mg Tablet) 5 mg PO TID [facility] Last Admin: 12/22/22 08:27 Dose: 5 mg Documented By: KALI Ondansetron HCl (Ondansetron Hcl 4 Mg/2 Ml Vial) 4 mg IVPUSH Q8H PRN PRN Reason: Nausea and Vomiting Last Admin: 12/22/22 10:27 Dose: 4 mg Documented By: KALI Pharmacy Consult (Consult Rx Perform Med Rec) 1 each MISCELLANE ONCE PRN PRN Reason: Consult order Polyethylene Glycol (Polyethylene Glycol 3350 17 Gm Powd.Pack) 17 gm PO DAILY [facility] Last Admin: 12/22/22 08:28 Dose: 17 gm Documented By: KALI Sodium Chloride (0.9 % Sodium Chloride Flush 3 Ml Syringe) 3 ml IVFLUSH QSHIFT [facility] Last Admin: 12/22/22 08:29 Dose: 3 ml Documented By: KALI Labs 12/21/22 06:49 12/22/22 06:39 Labs: Laboratory Results - last 24 hr 12/22/22 06:39 Anion Gap 9 L Estim Creat Clear Calc 125.3 Estimated GFR > 60 Random Glucose 91 Calcium 7.9 L D Magnesium 2.1 Microbiology Microbiology Results: Microbiology 12/20/22 19:42 Blood Culture - Preliminary Blood - Venous No growth after 24 hours. 12/20/22 18:39 Blood Culture - Preliminary Blood - Venous No growth after 24 hours. Assessment and Plan (1) Syncope: Status: Acute (2) Ear pain, left: Status: Acute (3) Sepsis: Status: Acute (4) Orthostatic hypotension: Status: Acute (5) Dehydration: Status: Acute Plan this is a 27 yo F with pmhx of Migraines and syncope presents to hospital w complaints of n/v/abd pain as well as multiple episodes of syncope #syncope secondary to orthostatic hypotension likely 2/2 dehydration Continue with IVF Treat GI symptoms conservatively Repeat orthostatic vitals Low-dose midodrine # ABd pain, N/V Could be from viral gastroenteritis Images negative for any acute findings Covered with abx pending cultures # Sepsis on admission 2/2 likely Otitis media Lt ear pending cultures on Antibiotics #LAcidosis Improved with fluids # hypomag repleted DVT ppx: early ambulation given orthostatic hypotension and pending blood cultures patient will need overnight hospital stay for further management and monitoring Time Spent With Patient Time: Total time managing care of this patient today ____ minutes. Quality Stroke Does the patient have a stroke diagnosis?: No VTE Prior VTE?: No VTE Risk Level:: Medical - low VTE Device Contraindication: Treatment Not Indicated VTE Drug Contraindication: Treatment Not Indicated
--- NOTE | 2022-12-22 11:47 | MHC.CM.PN ---
PT NOT YET MEDICALLY CLEARED DCP REMAINS HOME WITH NO SERVICES VIA PRIVATE TRANSPORT
[2022-12-22] MEDS: Omeprazole 40 MG CAPSULE.DR PO (12:23)
[2022-12-22] MEDS: Butalb/Acetamin/Caff 50/325/40 TABLET 1 TAB PO ×2 (16:09→20:37)
[2022-12-23] MEDS: Lactated Ringers 1,000 ML 100 ML IVCONT (02:13)
[2022-12-23 03:48] VITALS: BP 100/52; PULSE 69; RESP 16; TEMP 36.2; O2SAT 96
[2022-12-23] MEDS: Piperacillin Sodium/Tazobactam 3.375 GM in 0.9 % Sodium Chloride 50 ML IV (04:35)
[2022-12-23] MEDS: Omeprazole 40 MG CAPSULE.DR PO (05:16)
[2022-12-23 08:00] VITALS: BP 100/51; PULSE 72; RESP 16; TEMP 36.5; O2SAT 97
[2022-12-23] MEDS: Midodrine HCl 5 MG TABLET PO (09:35)
[2022-12-23] MEDS: Amoxicillin/Potassium Clav 875 MG TABLET PO (09:35)
[2022-12-23] MEDS: 0.9 % Sodium Chloride Flush 3 ML SYRINGE IVFLUSH (09:37)
[2022-12-23 10:19] VITALS: BP 95/52; PULSE 72
--- NOTE | 2022-12-23 10:55 | P.DS_ITS ---
DS: Providers Provider Date of Service: 12/23/22 Date of admission: 12/21/22 11:33 Primary care physician: Casandra Mars MD DS: Diagnosis Discharge Diagnosis (1) Syncope: Status: Acute (2) Ear pain, left: Status: Acute (3) Sepsis: Status: Acute (4) Orthostatic hypotension: Status: Acute (5) Dehydration: Status: Acute (6) Acidosis, lactic: Status: Acute (7) Hypomagnesemia: Status: Acute DS: Summary Hospital Course Hospital Course: Admission note HPI 27year old female with past medical history of recurrent syncope, migraine headaches presents to the hospital with complaints of? multiple syncopal epis odes as well as vomiting, with right quadrant abd pain. pain is upper and lower right abd. 7/10, constant, non-radiating, no alleviating or exacerbating factors.? Reports that she woke up this morning and had couple of episodes of vomiting, she also had 3 episodes of syncope. ? she reports that she continues to feel dizzy and weak.? She denies any recent sick contacts or travel. ? feels febrile, has chills, denies any diarrhea or constipation, no urinary symptoms and no lower extremity edema.? On arrival to the ED patient found to have a fever of 102.4, heart rate of 116, blood pressure of 92/47 Labs are significant for WBC count of 11.3, lactic acid of 2.2 improved after fluids, magnesium bone 0.4, AST of 34, ALT of 14, troponin negative, BNP negative, Abdomen pelvic CT shows no acute intra-abdominal process, no findings of acute? appendicitis, moderate to large amount of stool throughout the colon, chest x- ray negative, his CT negative patient received 4 L of IV fluids, remained dizzy, orthostatics are significantly positive Hospital course The patient was admitted to the hospital for evaluation of syncopal episode. She was noted to have low blood pressure readings with positive postural hypotension and evidence of sepsis with no clear source of infection at beginning but reported left ear pain with evidence of erythema suggestive of your infection. Images including x-ray, CT scan and ultrasound were all negative for any acute findings. Viral panel came back negative. The patient improved with treatment of IV fluid and antibiotics. Blood cultures remain negative .your blood pressure continue to run on the lower end with the patient reporting resolution of the lightheadedness and dizziness and with no recurrence of syncope. She reports that she has lightheadedness and episode of syncope at home almost on weekly basis that she has been going through evaluation for it and will follow-up with her PCP for further workup. To give midodrine for the next few days and she go to see her primary. Continue midodrine for the next week Continue Augmentin as prescribed Drink plenty of fluids To follow-up with your PCP for further workup of the low running blood pressure and recurrent complaints of lightheadedness at home Time Spent with Patient Time attestation: Total time managing care of this patient today ____ minutes. Discharge coordination time: Greater than 30 minutes Quality: Safe Use of Opioids Does Pt have an Active Cancer Diagnosis on the Problem List?: No Quality: Stroke Does the patient have a stroke diagnosis?: No Physical Exam Vital Signs: Vital Signs: Last Vital Signs Temp 97.7 F 12/23/22 08:00 Pulse 72 12/23/22 10:19 Resp 16 12/23/22 08:00 BP 95/52 L 12/23/22 10:19 Pulse Ox 97 12/23/22 08:00 O2 Del Method 12/23/22 08:00 BMI result Body Mass Index 23.3 Const: Other: Constitutional : Awake, interactive, not in distress Neck : Normal inspection, Supple Cardiovascular : RRR, no JVP, no lower extremity edema Respiratory : good bilateral air entry, no crackles, wheezes or rhonchi Gastrointestinal: soft, lax, Normal bowel sounds, no tenderness Skin : Warm, Dry Neurological : Alert & oriented x3, No focal deficit DS: Data Data Completed and Pending Labs on day of discharge: Preliminary micro results at discharge 12/20/22 19:42 Blood Culture - Preliminary Blood - Venous No growth after 48 hours. 12/20/22 18:39 Blood Culture - Preliminary Blood - Venous No growth after 48 hours. Imaging Chest x-ray: Radiologist's impression: ITS Impressions Head CT 12/20/22 16:35 IMPRESSION: No acute intracranial pathology. Chest X-Ray 12/20/22 16:55 IMPRESSION: No acute pulmonary process. Abdomen/Pelvis CT 12/20/22 20:21 IMPRESSION: 1. No acute intra-abdominal process identified. No findings of acute appendicitis. 2. Moderate to large amount of formed stool throughout the colon. Correlate clinically with signs or symptoms of constipation. Doppler Study Ultrasound 12/20/22 21:37 IMPRESSION: 1. No evidence of ovarian torsion. 2. Small amount of free pelvic fluid. 3. Normal uterus and ovaries. Pelvic/Transvag US 12/20/22 21:37 IMPRESSION: 1. No evidence of ovarian torsion. 2. Small amount of free pelvic fluid. 3. Normal uterus and ovaries. Discharge Plan Discharge Anticipated Discharge Date/Time: 12/23/22 10:43 Patient Disposition: Home, Self-Care Discharge Diagnosis: Sepsis Ear infection Syncope Referrals: Casandra Wilson MD [Primary Care Provider] - 1 Week Discharge Medications: New amoxicillin-pot clavulanate 875-125 mg Tablet 875 mg PO Q12H Qty: 8 0RF midodrine 5 mg Tablet 5 mg PO TID 7 Days Qty: 21 0RF Discharge Orders: Discharge Order (Routine); Ordered 12/23/22 Ordered By: Lakeisha Ledezma Diet: Advance to usual diet Activity on Discharge: As tolerated Stand Alone Forms: Patient Portal Discharge page Care Plan Goals: Read below Health Concerns: Read below Plan of Treatment: Read below Assessment: You were admitted to the hospital for evaluation of syncope. Workup including images, EKG were negative for any brain or heart goes for that. You were noted to have low blood pressure with evidence of sepsis and ear infection treated with IV antibiotic with good response. Your blood pressure continue to run low but you did not complain of any lightheadedness or recurrence of the syncope. Continue midodrine for the next week Continue Augmentin as prescribed Drink plenty of fluids To follow-up with your PCP for further workup of the low running blood pressure and recurrent complaints of lightheadedness at home
--- NOTE | 2022-12-23 11:46 | MHC.CM.PN ---
PT TO DC HOME TODAY WITH NO SERVICES VIA PRIVATE TRANSPORT
[2022-12-23] MEDS: Butalb/Acetamin/Caff 50/325/40 TABLET 1 TAB PO (12:01)
== END 2022-12-23 14:34 | disposition home or self-care (01) | DRG 249 ==
LOC: HO.ED 23:28 → HO.EDOVER 23:52 → HO.S3 12-21 09:08
PROVIDERS: Physician Assistant; Admitting Provider Internal Medicine; Emergency Provider Internal Medicine; PCP Internal Medicine; Visit Provider Student in an Organized Health Care Education/Training Program
DX: A08.4 Viral intestinal infection, unspecified (principal); E87.20 Acidosis, unspecified; R65.10 Systemic inflammatory response syndrome (SIRS) of non-infectious origin without acute organ dysfunction; E86.0 Dehydration; G43.909 Migraine, unspecified, not intractable, without status migrainosus; H66.92 Otitis media, unspecified, left ear; E83.42 Hypomagnesemia; I95.1 Orthostatic hypotension; Z20.822 Contact with and (suspected) exposure to COVID-19; Z79.899 Other long term (current) drug therapy
CPT/HCPCS: 36415; 70450; 71045; 74177; 76830; 76856; 80048; 80053; 80143; 80179; 80307; 81001; 82077; 82947; 83605; 83690; 83735; 83880; 84484; 84702; 85025; 87040; 87502; 87635; 93005; 93975; 99285; J2405; J2543; J3010; J3475; Q9967

== ENCOUNTER 2022-12-28 14:47 | Outpatient (REF) | payer OTHER, SELFPAY ==
--- NOTE | ~2022-12-28 | MR_ITS ---
EXAMINATION: MR BRAIN WITHOUT CONTRAST CLINICAL INFORMATION: Syncope, migraine with aura COMPARISON: CT head without contrast 12/20/2022 TECHNIQUE: Multiplanar multisequence MR imaging of the brain was obtained without intravenous contrast. FINDINGS: There is no acute infarct on diffusion-weighted imaging. There is no intracranial hemorrhage on iron-sensitive imaging. No extra-axial collection or mass effect/herniation. Normal parenchymal signal characteristics. No hydrocephalus. The ventricles are normal in morphology and size. The major flow voids at the skull base are preserved. The midline structures are normal. The cerebellar tonsils are normally positioned. The craniocervical junction is normal. Marrow signal is within normal limits. The visualized soft tissues are without significant abnormality. No signal abnormality within the paranasal sinuses or within the mastoid air cells. MR/MR head/brain wo con IMPRESSION: Unremarkable noncontrast MRI of the brain.
== END 2022-12-28 14:48 | disposition home or self-care (01) ==
LOC: HO.MRI 14:47
PROVIDERS: PCP Internal Medicine; Visit Provider Nurse Practitioner Family
DX: G43.909 Migraine, unspecified, not intractable, without status migrainosus (principal); R55 Syncope and collapse
CPT/HCPCS: 70551

== ENCOUNTER → 2023-01-22 15:07 | Outpatient (BNVA) | payer OTHER, SELFPAY | PROVIDERS: PCP Internal Medicine; Visit Provider Internal Medicine Gastroenterology | DX: R94.5 Abnormal results of liver function studies (principal) | CPT/HCPCS: 99212 ==

== ENCOUNTER → 2023-02-26 12:38 | Outpatient (BNVA) | payer OTHER, SELFPAY | PROVIDERS: PCP Internal Medicine; Visit Provider Nurse Practitioner Family | DX: G43.909 Migraine, unspecified, not intractable, without status migrainosus (principal); R55 Syncope and collapse | CPT/HCPCS: 99212 ==

== ENCOUNTER 2023-04-02 12:41 | Outpatient (REF) | payer OTHER, SELFPAY | END 2023-04-02 12:42 | disposition home or self-care (01) | LOC: HO.LNP 12:41 | PROVIDERS: PCP Internal Medicine; Visit Provider Advanced Practice Midwife | DX: Z13.89 Encounter for screening for other disorder (principal) ==

== ENCOUNTER 2023-04-02 13:41 | Outpatient (REF) | payer OTHER, SELFPAY ==
[2023-04-02 15:46] LABS: Syphilis Screen Nonreactive (Nonreactive)
[2023-04-03 05:09] LABS: CT PCR NOT DETECTED (Not Detect.); NG PCR NOT DETECTED (Not Detect.)
[2023-04-03 08:55] LABS: BV Int Neg Control Negative (Negative); BV Int Pos Control Positive (Positive)
[2023-04-04 05:16] LABS: HBsAGNum1 0.29 S/CO (0.00-0.99); HIV AB/AG Nonreactive (Nonreactive); HIV Num 1 0.06 S/CO (0.00-0.99); Hepatitis B Surface Antigen Negative (Negative); ~HepC Num1 0.08 S/CO (0.00-0.79); ~Hepatitis C Antibody Nonreactive (Nonreactive)
== END 2023-04-02 13:42 | disposition home or self-care (01) ==
LOC: HO.LAB 13:41
PROVIDERS: PCP Internal Medicine; Visit Provider Advanced Practice Midwife
DX: Z11.3 Encounter for screening for infections with a predominantly sexual mode of transmission (principal); Z11.4 Encounter for screening for human immunodeficiency virus [HIV]
CPT/HCPCS: 0353U; 86780; 86803; 87340; 87389; 87480; 87510; 87660

== ENCOUNTER 2023-04-19 09:27 | Outpatient (REF) | payer OTHER, SELFPAY ==
[2023-04-19 09:47] LABS: MANUAL DIFF FLAG NO
[2023-04-19 11:02] LABS: Basophils Absolute Auto 0.1 X10*3/uL (0.0-0.2); Basophils Percent Auto 1.3 % (0-2); Eosinophils Absolute Auto 0.1 X10*3/uL (0.0-0.4); Eosinophils Percent Auto 1.1 % (0-4); Hematocrit 40.5 % (37.0-47.0); Imm Gran Abs Auto 0.01 X10*3/uL (0.00-0.03); Imm Gran Pct Auto 0.2 % (0.0-0.4); Lymphocytes Absolute Auto 1.3 X10*3/uL (1.2-4.9); Lymphocytes Percent Auto 27.7 % (20-40); Mean Corpuscular HGB Conc 32.1 g/dl (31.0-35.0); Mean Corpuscular Hemoglobin 27.1 pg (27.0-33.0); Mean Corpuscular Volume 84.4 fL (80.0-98.0); Monocytes Absolute Auto 0.3 X10*3/uL (0.1-1.2); Monocytes Percent Auto 5.9 % (2-11); Neutrophils Percent Auto 63.8 % (45-73); Platelet Count 283 X10*3/uL (160-400); Red Cell Distribution Width 13.1 % (11.0-16.0); White Blood Count 4.7 X10*3/uL (4.8-10.8)
[2023-04-19 12:28] LABS: Vitamin D 25-OH Total 16.2 ng/mL (>30)
[2023-04-19 12:31] LABS: Anion Gap 11 (12-20)
[2023-04-19 12:36] LABS: Alanine Aminotransferase 10 U/L (0-31); Albumin Level 4.8 g/dL (3.5-5.0); Alkaline Phosphatase 75 U/L (39-117); Aspartate Amino Transferase 35 U/L (5-31); Bilirubin Total 0.6 mg/dL (0.0-1.0); Blood Urea Nitrogen 10 mg/dL (9-16); Calcium 9.1 mg/dL (8.4-10.2); Carbon Dioxide 27 mmol/L (22-29); Chloride 107 mmol/L (96-108); Cholesterol 162 mg/dL; Estimated Glomerular Filt Rate > 60; Glucose Fasting 92 mg/dL (60-99); HDL Cholesterol 58 mg/dL; LDL Cholesterol Calculated 95 mg/dl; Magnesium 2.1 mg/dL (1.6-2.6); Potassium 3.8 mmol/L (3.3-5.1); Sodium 141 mmol/L (135-145); Total Protein 8.3 g/dL (6.5-8.0); Triglycerides 47 mg/dL
[2023-04-23 14:32] LABS: Calcium (PTHI) 9.5 mg/dL (8.6-10.2); PTHI 71 pg/mL (16-77)
== END 2023-04-19 09:28 | disposition home or self-care (01) ==
LOC: HO.LAB 09:27
PROVIDERS: PCP Internal Medicine; Visit Provider Internal Medicine
DX: Z00.00 Encounter for general adult medical examination without abnormal findings (principal); E83.51 Hypocalcemia; E83.42 Hypomagnesemia; G43.909 Migraine, unspecified, not intractable, without status migrainosus; E55.9 Vitamin D deficiency, unspecified
CPT/HCPCS: 36415; 80053; 80061; 82306; 82330; 83735; 83970; 85025

== ENCOUNTER 2023-06-07 11:26 | Outpatient (AMB) | payer OTHER, SELFPAY ==
[2023-06-07 11:27] VITALS: PULSE 65; O2SAT 100; BMI 20.8
--- NOTE | 2023-06-07 11:27 | MHC.OFFVIS ---
Intake Vital Signs 06/07/23 11:27 Height 5 ft 3 in Weight 117 lb 6 oz BMI 20.8 Position Sitting Pulse 65 Pulse Source Pulse Oximeter Pulse Oximetry (%) 100 Oxygen Delivery Method Room Air Intake Visit Reasons: 3 mo f/u-Syncope Intake Note: Pt presents as a f/u for syncope. Pt states she is doing good. Automotive Designer Required: Yes Automotive Designer Name: Madonna Salazar Allergies No Known Allergies [No Known Allergies*] Allergy (Verified 06/07/23 11:32) Medication List - Last Reconciled 06/07/23 by LUBNA Pantoja cholecalciferol (vitamin D3) 50 mcg PO DAILY 90 days magnesium oxide 400 mg PO BEDTIME 30 days midodrine 5 mg PO TID 90 days riboflavin (vitamin B2) 400 mg PO DAILY 30 days sumatriptan succinate 50 - 100 mg orally at onset of headache, may repeat in 2 hrs PRN; max 2 tabs per day or 4 tabs/week (may take with Ibuprofen) 30 days HPI HPI Comments History of Present Illness Details 27-yr-old female presents for f/u visit for migraine and syncope, accompanied by her partner. Pt denies any significant interval medical changes. Pt reports she is having less migraine. Had 1 typical migraine the other day and the last was more than 3 weeks ago. She started Mag and B2. She resumed sumatriptan- which is helpful. She has not had any interval syncopal episodes, other than a brief episode of orthostatic lightheadedness upon awakening and she was syncopal during her tilt table test. She is compliant w/ midodrine 5mg tid and taking increased fluids and salts. She is concerned about easy bruising- has large bruises with even slight bumps. She denies bleeding with brushing her teeth, using the bathroom etc. [facility] Tilt table test: CARDIAC PROCEDURE REPORT PROCEDURE DATE: 03/07/2023 PROCEDURE: DANETTE INDICATION: syncope OPERATORS: Jaimee CHAVEZ and Dr. Canas DESCRIPTION OF PROCEDURE: The patient arrive to S4 in a fasting state. The patient was identified with 2 forms of ID, a timeout was taken, and an informed consent was obtained. Initial supine blood pressure was obtained (see below) and patient then was tilted upright to 70 degrees and continuous ECG and BP monitoring every 2 minutes. ? HEMODYNAMIC DATA: Pre-Procedure Vitals: BP?105/66 mmHG, HR:?75 bpm and O2sat 98% 70 degree Tilt: 0 Min?? BP?108/59, HR 68, No symptoms 2 min ? BP 100/67, HR 78, No symptoms 4 min?? BP 97/60,?? HR?77, No symptoms 6 min ? BP 98/62,?? HR 77,?No symptoms 8 min?? BP 97/63,?? HR 78, N0 symptoms 10 min BP 91/63,?? HR 80, No symptoms 12 min BP 95/66,? ?HR 89, No symptoms 14 min BP?91/64,?? HR?85, No symptoms 16 min BP 91/66,?? HR 73,?dizzy, weak, diaphoretic 18 min BP 55/42??? HR 24, passed out Post Tilt Vitals: 0 min post BP 92/20,? ?HR 42 and felt dizzy and lightheaded 2 min post BP 104/63, HR?88 and no symptoms ? IMPRESSION: 1)?positive?tilt table test for neurocardiogenic syncope (exhibit a cardioinhibitory?and vasodepressive response) after 30 min of an upright tilt. ? RECOMMENDATIONS: defer to ordering - Zuly Hitchcock [facility], [facility] COMPLICATIONS: none ? Patient discharged home with ride from [facility]. Patient advised to stay hydrated?and increase salt intake. Further recommendations form PCP. Previous work-up: Brain MRI w/o: unremarkable. Echocardiogram with normal LVEF, 55-60% and no significant valvular pathology.? Holter shows underlying sinus rhythm with an average rate of 80/minute with episodes of sinus tachycardia, but no other arrhythmias. US/US carotid duplex BI, 04/2021- normal EEG- 2020- normal Head CT wo- 04/2021- normal PFSH Medical History Acute bronchitis Hospital discharge follow-up Left ear pain Migraine Physical exam Syncope Surgical History History of section History of tubal ligation Family History Father Asthma Mother No problems noted. Paternal Uncle Colon cancer Social History Household Members: Children Housing: Apartment Alcohol intake: never Patient Tobacco Use Status: Never used Tobacco e-Cigarette/Vaping Use: Never Used Second Hand Smoke Exposure: No service: No Current occupational status: employed Current occupational exposures/hazards: No Cognitive needs: No Hearing needs: No Vision needs: No Female Reproductive History Menstrual Age of Menarche: 11 Review of Systems Const All systems reviewed & are unremarkable except as noted in HPI and below Physical Exam Vital Signs: Last Vital Signs Pulse 65 06/07/23 11:27 Pulse Ox 100 06/07/23 11:27 Oxygen Delivery Method Room Air 06/07/23 11:27 BMI result Body Mass Index 20.8 Const General: cooperative and no acute distress Orientation/consciousness: patient oriented x3 HEENT Head: Yes normocephalic Resp Effort & Inspection: normal respiratory effort and able to speak in complete sentences Skin Other: a few scattered bruises Neuro General: patient oriented x3, gait normal and CN's II-XI intact bilaterally Cognition (Neuro): normal cognition Motor exam (neuro): 5/5 motor strength present throughout Psych Appearance: grossly normal Mental Status: mental status grossly normal Speech and movement: Normal speech and movement present Affect: normal affect Attitude: cooperative Thought process: Normal thought process present Thought content: Normal thought content present Insight: Good insight present (Psych) Judgement: Good judgement present (Psych) Assessment & Plan Assessment & Plan (1) Neurocardiogenic syncope: Comment: tilt-table test (February 2023 at [facility]): cardioinhibitory and vasodepressive response Code(s): R55 - Syncope and collapse (2) Migraine: Code(s): G43.909 - Migraine, unspecified, not intractable, without status migrainosus Qualifiers: Migraine type: unspecified Status migrainosus presence: without status migrainosus Intractability: not intractable Qualified Code(s): G43.909 - Migraine, unspecified, not intractable, without status migrainosus Plan For syncope: Reviewed tilt-table test- neurocardiogenic syncope w/ cardioinhibitory and vasodepressive response- pt had syncopal episode a/w significant hypotension and bradycardia. Continue Midodrine 5mg tid Continue increased fluids and salt If symptoms worsen, we can refer back to cardiology. For migraine: Continue Mag and B2 for prevention. Continue Sumatriptan 100mg tab, 1/2 - 1 tab (50-100mg) at onset of headache, may repeat in 2 hours. Max of 2 tabs (200mg) per 24 hours. May adjunct with OTC Tylenol 650mg q 4 hours, Ibuprofen 600mg q 6 hours, or Naproxen 440mg q 12 hrs prn. For Bruising: Check labs for common etiologies. f/u in 3 months or sooner prn Orders: Orders Comprehensive Met. Panel Today I95.0 - Idiopathic hypotension, R55 - Syncope and collapse, T14.8XXA - Other injury of unspecified body region, initial encounter Prothrombin Time INR Today I95.0 - Idiopathic hypotension, R55 - Syncope and collapse, T14.8XXA - Other injury of unspecified body region, initial encounter Complete Blood Count Auto Diff Today I95.0 - Idiopathic hypotension, R55 - Syncope and collapse, T14.8XXA - Other injury of unspecified body region, initial encounter Fibrinogen Today I95.0 - Idiopathic hypotension, R55 - Syncope and collapse, T14.8XXA - Other injury of unspecified body region, initial encounter Coding Level of Care Code Est Pt Level 4 (82549) Diagnoses Neurocardiogenic syncope R55 Migraine G43.909 Migraine type: unspecified Status migrainosus presence: without status migrainosus Intractability: not intractable
== END 2023-06-07 12:13 | disposition home or self-care (01) ==
PROVIDERS: Visit Provider Nurse Practitioner Family
DX: R55 Syncope and collapse (principal); G43.909 Migraine, unspecified, not intractable, without status migrainosus
CPT/HCPCS: 99214

== ENCOUNTER → 2023-06-07 11:26 | Outpatient (BNVA) | payer OTHER, SELFPAY | PROVIDERS: Visit Provider Nurse Practitioner Family | DX: R55 Syncope and collapse (principal); G43.909 Migraine, unspecified, not intractable, without status migrainosus; Z79.899 Other long term (current) drug therapy | CPT/HCPCS: 99212 ==

== ENCOUNTER 2023-06-21 18:22 | Emergency (ER) | payer OTHER, SELFPAY ==
[2023-06-21 18:24] VITALS: BP 115/61; PULSE 68; RESP 18; TEMP 37; O2SAT 99; BMI 21.1
--- NOTE | 2023-06-21 18:24 | ED.GENADULT ---
HPI - General Adult General Chief complaint: General Medical Stated complaint: boady ache all over, headache, dizziness Time Seen by Provider: 06/21/23 18:52 Source: patient Mode of arrival: ambulatory Limitations: no limitations History of Present Illness HPI narrative: Patient is a 27-year-old female who presents emergency department for evaluation of a headache with dizziness, body aches and subjective weakness. Onset of symptoms was 2 days ago. Reports has been have been ill with similar symptoms. She is also endorsing nausea. She denies fevers, chills, chest pain, shortness of breath, difficulty breathing, vomiting, abdominal pain, genitourinary symptoms, numbness or tingling of the extremities. Related Data Previous Rx's Medication Instructions Recorded midodrine 5 mg tablet 5 mg PO TID 90 days #270 tabs 02/12/23 magnesium oxide 400 mg (241.3 mg 400 mg PO BEDTIME 30 days #30 tabs 02/26/23 magnesium) tablet riboflavin (vitamin B2) 400 mg 400 mg PO DAILY 30 days #30 tabs 02/26/23 tablet sumatriptan succinate 100 mg tablet 50 - 100 mg PO .COMPLEX PRN 02/26/23 migraine headache 30 days #12 tabs cholecalciferol (vitamin D3) 50 50 mcg PO DAILY 90 days #90 caps 04/19/23 mcg (2,000 unit) capsule Allergies Allergy/AdvReac Type Severity Reaction Status Date / Time No Known Allergies Allergy Verified 06/21/23 18:24 [No Known Allergies*] Review of Systems Review of Systems: Yes all other systems are reviewed and are negative PMFSH Past Medical History Attestation statement: The following information was validated with the patient. Source: old records reviewed Medical History Acute bronchitis Hospital discharge follow-up Left ear pain Migraine Physical exam Syncope Surgical History History of section History of tubal ligation Family History Family History Father Asthma Mother No problems noted. Paternal Uncle Colon cancer Social History Social History Household Members: Children Housing: Apartment Alcohol intake: never Patient Tobacco Use Status: Never used Tobacco e-Cigarette/Vaping Use: Never Used Second Hand Smoke Exposure: No Advance Directives: No Advance Directives Information Provided: Yes service: No Current occupational status: employed Current occupational exposures/hazards: No Cognitive needs: No Hearing needs: No Vision needs: No Physical Exam ED Vital Signs: Vital Signs - 24 hr 06/21/23 18:24 Temperature 98.6 F Pulse Rate 68 Respiratory Rate 18 Blood Pressure 115/61 Pulse Oximetry 99 Oxygen Delivery Method Room Air BMI result Body Mass Index 21.1 Appearance: Alert.?Oriented to person, place and time. No acute distress.?Normal affect. Eyes: Pupils equal, round and reactive to light.? EOMI. No nystagmus. ENT: Pharynx normal.??TM normal bilaterally Neck: Normal inspection.? Neck supple.??No cervical lymphadenopathy CVS: Heart sounds normal. Normal heart rate and rhythm.? Pulses normal.?? Respiratory: No respiratory distress.? Lung sounds clear to auscultation bilaterally?? Abdomen: Soft and non-tender. Normoactive bowel sounds. Skin: Skin warm and dry.? Normal skin color.? Extremities: No lower extremity edema.? No calf ttp? Neuro: Moves all extremities spontaneously. Sensation intact bilaterally. CN II-XII intact. No focal neuro deficits. Ambulates with normal steady gait. Course Course Course Narrative: RME- 27 year old female presents for evaluation of body aches, headache, intermittent dizziness. Plan for covid swab initially. Consider further work up if negative Medical Decision Making Medical Decision Making MDM Narrative: Patient is a 27-year-old female who presents emergency department for evaluation of headache dizziness and body aches. At the time my examination she is overall well-appearing. Vital signs are stable. No apparent distress. She speaking clear full sentences, ambulatory with a steady gait, and no focal neurological deficits. COVID-19 testing was obtained and is negative, although she did have sent to the onset of the yesterday, she at testing to prematurely to detect. Obtained basic labs including a CBC and CMP which is overall unremarkable. No acute abnormalities. High sensitive troponin is negative, EKG reveals a normal sinus rhythm with ventricular rate of 69, normal TX interval, QTC 417, no ST elevation, no ST depression, no acute ischemic abnormalities. PERC negative unlikely pulmonary embolism. Urinalysis reveals no evidence of urinary tract infection and testing is negative. Symptoms at this time most consistent with a viral syndrome. Discussed conservative treatment, worrisome signs and symptoms that would warrant re-evaluation in the emergency department. All questions answered. Stable for discharge. Differential Diagnosis Differential Diagnoses: The differential diagnosis associated with the presentation includes (As noted above) Admission/Observation Consideration of admission/observation: Escalation of care including admission/observation considered (Considered admission for dizziness, see narrative above for further detail) Lab Data MDM Lab Attestation statement: I reviewed the patient's lab results. (See narrative above for further detail) 06/21/23 19:39 06/21/23 19:39 Labs: Lab Results 06/21/23 06/21/23 06/21/23 Range/Units 18:46 19:39 19:39 WBC 6.1 (4.8-10.8) X10*3/uL RBC 4.50 (4.20-5.50) X10*6/uL Hgb 11.9 L (12.0-16.0) g/dl Hct 37.4 (37.0-47.0) % MCV 83.1 (80.0-98.0) fL MCH 26.4 L (27.0-33.0) pg MCHC 31.8 (31.0-35.0) g/dl RDW 14.0 (11.0-16.0) % Plt Count 257 (160-400) X10*3/uL MPV 10.5 (9.4-12.3) fL Immature Gran % (Auto) 0.2 (0.0-0.4) % Neut % (Auto) 61.1 (45-73) % Lymph % (Auto) 29.6 (20-40) % Weston % (Auto) 6.6 (2-11) % Eos % (Auto) 1.5 (0-4) % Baso % (Auto) 1.0 (0-2) % Lymph # (Auto) 1.8 (1.2-4.9) X10*3/uL Weston # (Auto) 0.4 (0.1-1.2) X10*3/uL Eos # (Auto) 0.1 (0.0-0.4) X10*3/uL Baso # (Auto) 0.1 (0.0-0.2) X10*3/uL Abs Immat Gran (auto) 0.01 (0.00-0.03) X10*3/uL Absolute Neuts (auto) 3.7 (2.0-8.3) x10*3/uL Absolute Nucleated RBC 0.000 (0.0-0.012) X10*3/uL Nucleated RBC % (auto) 0.0 (0.0-0.2) /100WBC Sodium 142 (135-145) mmol/L Potassium 3.5 (3.3-5.1) mmol/L Chloride 106 (96-108) mmol/L Carbon Dioxide 28 (22-29) mmol/L Anion Gap 12 (12-20) BUN 7 L (9-16) mg/dL Creatinine 0.80 (0.5-1.4) mg/dL Estim Creat Clear Calc 85.8 Estimated GFR > 60 Random Glucose 117 H (60-115) mg/dL Calcium 9.4 (8.4-10.2) mg/dL Total Bilirubin 0.3 (0.0-1.0) mg/dL AST 37 H (5-31) U/L ALT 9 (0-31) U/L Alkaline Phosphatase 76 (39-117) U/L Troponin I High Sens (<3.5-17.0) ng/L Total Protein 7.5 (6.5-8.0) g/dL Albumin 4.4 (3.5-5.0) g/dL Urine Color Urine Appearance Urine pH (5.0-9.0) Ur Specific Guys (1.005-1.025) Urine Protein (Neg-Trace) mg/dL Urine Glucose (UA) (Negative) mg/dL Urine Ketones (Negative) mg/dL Urine Blood (Negative) Urine Nitrite (Negative) Ur Leukocyte Esterase (Negative) Urine RBC (0-2) /HPF Urine WBC (0-5) /HPF Ur Squamous Epith Cells (0-2) /HPF Urine Bacteria (None Seen) Hyaline Casts (0-2) /LPF Urine Test (NEGATIVE) COVID-19 (JIMMY) Negative (Negative) COVID-19 Clin Com See Note 06/21/23 06/21/23 06/21/23 Range/Units 19:39 20:06 20:06 WBC (4.8-10.8) X10*3/uL RBC (4.20-5.50) X10*6/uL Hgb (12.0-16.0) g/dl Hct (37.0-47.0) % MCV (80.0-98.0) fL MCH (27.0-33.0) pg MCHC (31.0-35.0) g/dl RDW (11.0-16.0) % Plt Count (160-400) X10*3/uL MPV (9.4-12.3) fL Immature Gran % (Auto) (0.0-0.4) % Neut % (Auto) (45-73) % Lymph % (Auto) (20-40) % Weston % (Auto) (2-11) % Eos % (Auto) (0-4) % Baso % (Auto) (0-2) % Lymph # (Auto) (1.2-4.9) X10*3/uL Weston # (Auto) (0.1-1.2) X10*3/uL Eos # (Auto) (0.0-0.4) X10*3/uL Baso # (Auto) (0.0-0.2) X10*3/uL Abs Immat Gran (auto) (0.00-0.03) X10*3/uL Absolute Neuts (auto) (2.0-8.3) x10*3/uL Absolute Nucleated RBC (0.0-0.012) X10*3/uL Nucleated RBC % (auto) (0.0-0.2) /100WBC Sodium (135-145) mmol/L Potassium (3.3-5.1) mmol/L Chloride (96-108) mmol/L Carbon Dioxide (22-29) mmol/L Anion Gap (12-20) BUN (9-16) mg/dL Creatinine (0.5-1.4) mg/dL Estim Creat Clear Calc Estimated GFR Random Glucose (60-115) mg/dL Calcium (8.4-10.2) mg/dL Total Bilirubin (0.0-1.0) mg/dL AST (5-31) U/L ALT (0-31) U/L Alkaline Phosphatase (39-117) U/L Troponin I High Sens < 2.7 (<3.5-17.0) ng/L Total Protein (6.5-8.0) g/dL Albumin (3.5-5.0) g/dL Urine Color Yellow Urine Appearance Clear Urine pH 6.0 (5.0-9.0) Ur Specific Guys 1.015 (1.005-1.025) Urine Protein Negative (Neg-Trace) mg/dL Urine Glucose (UA) Negative (Negative) mg/dL Urine Ketones Negative (Negative) mg/dL Urine Blood Negative (Negative) Urine Nitrite Negative (Negative) Ur Leukocyte Esterase Small (1+) H (Negative) Urine RBC 0-2 (0-2) /HPF Urine WBC 0-5 (0-5) /HPF Ur Squamous Epith Cells 3-5 (0-2) /HPF Urine Bacteria Trace (None Seen) Hyaline Casts 0-2 (0-2) /LPF Urine Test NEGATIVE (NEGATIVE) COVID-19 (JIMMY) (Negative) COVID-19 Clin Com Independent Interpretation I performed an independent interpretation of an: EKG (As noted above) Independent Historian Clinical information obtained from an independent historian. History obtained from or confirmed by: Spouse (Has been present at bedside who confirms history) Prescription Management I considered prescription management with: Antibiotic (Viral etiology) Discharge Plan Discharge Clinical Impression: Acute viral syndrome Patient Disposition: Home, Self-Care Instructions: Viral Syndrome (ED) Additional Instructions: Please be sure to rest, stay well hydrated, he small frequent meals. You can take ibuprofen 200 mg, 3 tablets (600mg) every 6-8 hours as needed for pain, in addition to Tylenol 500 mg, 2 tablets (1,000mg) every 4-6 hours as needed for pain, but not to exceed 3 doses daily (3,000mg).? You may consider repeating COVID-19 testing in 1-3 days if you continue to have symptoms. Follow-up with your primary care provider as needed. Return back to the emergency department any new or worsening symptoms or concerns. Prescriptions: No Action midodrine 5 mg tablet 5 mg PO TID 90 Days Qty: 270 1RF cholecalciferol (vitamin D3) 50 mcg (2,000 unit) capsule 50 mcg PO DAILY 90 Days Qty: 90 0RF riboflavin (vitamin B2) 400 mg tablet 400 mg PO DAILY 30 Days Qty: 30 6RF sumatriptan succinate 100 mg tablet 50 - 100 mg PO .COMPLEX PRN (Reason: migraine headache) 30 Days Qty: 12 6RF Rx Instructions: 50 - 100 mg orally at onset of headache, may repeat in 2 hrs PRN; max 2 tabs per day or 4 tabs/week (may take with Ibuprofen) magnesium oxide 400 mg (241.3 mg magnesium) tablet 400 mg PO BEDTIME 30 Days Qty: 30 6RF Rx Instructions: may hold for loose stools Referrals: Casandra Wilson MD [Primary Care Provider] -
[2023-06-21 19:05] LABS: COVID-19 Test Negative (Negative); IDNOW Serial# BCCEAD1C
--- NOTE | 2023-06-21 19:29 | ECG_ITS ---
Test Reason : DIZZNESS Blood Pressure : / mmHG Vent. Rate : 069 BPM Atrial Rate : 069 BPM P-R Int : 154 ms QRS Dur : 100 ms QT Int : 390 ms P-R-T Axes : 067 084 031 degrees QTc Int : 417 ms Normal sinus rhythm Incomplete right bundle branch block Nonspecific T wave abnormality Abnormal ECG When compared with ECG of 20-DEC-2022 20:02, Vent. rate has decreased BY 44 BPM Nonspecific T wave abnormality has replaced inverted T waves in Inferior leads Referred By: Liliya Gagnon Electronically Signed By:NAV GRIJALVA
[2023-06-21 19:44] LABS: MANUAL DIFF FLAG NO
[2023-06-21 19:47] LABS: Basophils Absolute Auto 0.1 X10*3/uL (0.0-0.2); Eosinophils Absolute Auto 0.1 X10*3/uL (0.0-0.4); Eosinophils Percent Auto 1.5 % (0-4); Hematocrit 37.4 % (37.0-47.0); Hemoglobin 11.9 g/dl (12.0-16.0); Imm Gran Abs Auto 0.01 X10*3/uL (0.00-0.03); Imm Gran Pct Auto 0.2 % (0.0-0.4); Lymphocytes Absolute Auto 1.8 X10*3/uL (1.2-4.9); Lymphocytes Percent Auto 29.6 % (20-40); Mean Corpuscular HGB Conc 31.8 g/dl (31.0-35.0); Mean Corpuscular Hemoglobin 26.4 pg (27.0-33.0); Mean Corpuscular Volume 83.1 fL (80.0-98.0); Mean Platelet Volume 10.5 fL (9.4-12.3); Monocytes Absolute Auto 0.4 X10*3/uL (0.1-1.2); Monocytes Percent Auto 6.6 % (2-11); Neutrophils Absolute Auto 3.7 x10*3/uL (2.0-8.3); Neutrophils Percent Auto 61.1 % (45-73); Platelet Count 257 X10*3/uL (160-400); White Blood Count 6.1 X10*3/uL (4.8-10.8)
[2023-06-21 19:59] LABS: Alanine Aminotransferase 9 U/L (0-31); Albumin Level 4.4 g/dL (3.5-5.0); Alkaline Phosphatase 76 U/L (39-117); Anion Gap 12 (12-20); Aspartate Amino Transferase 37 U/L (5-31); Bilirubin Total 0.3 mg/dL (0.0-1.0); Blood Urea Nitrogen 7 mg/dL (9-16); Calcium 9.4 mg/dL (8.4-10.2); Carbon Dioxide 28 mmol/L (22-29); Chloride 106 mmol/L (96-108); Creatinine Clr Calc Pharmacy 85.8; Estimated Glomerular Filt Rate > 60; Glucose Random 117 mg/dL (60-115); Potassium 3.5 mmol/L (3.3-5.1); Sodium 142 mmol/L (135-145); Total Protein 7.5 g/dL (6.5-8.0)
[2023-06-21 20:09] LABS: Troponin-I High Sensitivity < 2.7 ng/L (<3.5-17.0)
[2023-06-21 20:16] LABS: UPreg QC Valid YES; Urine Pregnancy NEGATIVE (NEGATIVE)
[2023-06-21 20:17] LABS: Appearance Urine Clear; Color Urine Yellow; Glucose Urine UA Negative (Negative); Leukocyte Esterase Urine Small (1+) (Negative); Nitrite Urine Negative (Negative); Specific Gravity - Urine 1.015 (1.005-1.025); UMIC TRIGGER UACC YES; Urine Blood Negative (Negative); Urine Ketones Negative (Negative); Urine Protein Negative (Neg-Trace)
[2023-06-21 20:28] LABS: Bacteria Urine Trace (None Seen); Hyaline Casts Urine 0-2 /LPF (0-2); RBC Urine 0-2 /HPF (0-2); UACC Culture Trigger YES; WBC Urine 0-5 /HPF (0-5)
== END 2023-06-21 21:08 | disposition home or self-care (01) ==
PROVIDERS: Nurse Practitioner Family; Physician Assistant; Emergency Provider Emergency Medicine; PCP Internal Medicine
DX: B34.9 Viral infection, unspecified (principal); R51.9 Headache, unspecified; Z20.822 Contact with and (suspected) exposure to COVID-19
CPT/HCPCS: 36415; 80053; 81001; 81025; 84484; 85025; 87086; 87635; 93005; 99283

== ENCOUNTER 2023-07-04 09:17 | Outpatient (REF) | payer OTHER, SELFPAY ==
[2023-07-04 10:20] LABS: MANUAL DIFF FLAG NO
[2023-07-04 10:30] LABS: Basophils Absolute Auto 0.1 X10*3/uL (0.0-0.2); Basophils Percent Auto 1.3 % (0-2); Eosinophils Absolute Auto 0.1 X10*3/uL (0.0-0.4); Eosinophils Percent Auto 1.5 % (0-4); Hematocrit 39.2 % (37.0-47.0); Hemoglobin 12.6 g/dl (12.0-16.0); Imm Gran Abs Auto 0.01 X10*3/uL (0.00-0.03); Imm Gran Pct Auto 0.2 % (0.0-0.4); Mean Corpuscular HGB Conc 32.1 g/dl (31.0-35.0); Mean Corpuscular Hemoglobin 26.7 pg (27.0-33.0); Mean Corpuscular Volume 83.1 fL (80.0-98.0); Mean Platelet Volume 10.4 fL (9.4-12.3); Monocytes Absolute Auto 0.3 X10*3/uL (0.1-1.2); Monocytes Percent Auto 5.6 % (2-11); Neutrophils Absolute Auto 3.5 x10*3/uL (2.0-8.3); Neutrophils Percent Auto 58.4 % (45-73); Platelet Count 280 X10*3/uL (160-400); Red Blood Count 4.72 X10*6/uL (4.20-5.50); Red Cell Distribution Width 14.3 % (11.0-16.0); White Blood Count 6.1 X10*3/uL (4.8-10.8)
[2023-07-04 10:36] LABS: Fibrinogen 519 MG/DL (259-690); Prothrombin Time 12.4 SEC (11.1-13.3)
[2023-07-04 11:09] LABS: Alanine Aminotransferase 9 U/L (0-31); Albumin Level 4.7 g/dL (3.5-5.0); Alkaline Phosphatase 66 U/L (39-117); Anion Gap 11 (12-20); Aspartate Amino Transferase 32 U/L (5-31); Bilirubin Total 0.4 mg/dL (0.0-1.0); Blood Urea Nitrogen 11 mg/dL (9-16); Calcium 9.8 mg/dL (8.4-10.2); Carbon Dioxide 27 mmol/L (22-29); Chloride 106 mmol/L (96-108); Estimated Glomerular Filt Rate > 60; Glucose Random 91 mg/dL (60-115); Potassium 4.1 mmol/L (3.3-5.1); Sodium 140 mmol/L (135-145); Total Protein 7.8 g/dL (6.5-8.0)
== END 2023-07-04 09:18 | disposition home or self-care (01) ==
LOC: HO.LAB 09:17
PROVIDERS: PCP Internal Medicine; Visit Provider Nurse Practitioner Family
DX: I95.0 Idiopathic hypotension (principal); R55 Syncope and collapse; T14.8XXA Other injury of unspecified body region, initial encounter
CPT/HCPCS: 36415; 80053; 85025; 85384; 85610

== ENCOUNTER 2023-07-04 09:23 | Outpatient (RCR) | payer OTHER, SELFPAY ==
--- NOTE | 2023-07-04 10:17 | MHC.OT.EP ---
[address] [phone] Occupational Therapy Plan of Care Patient Name: Ora Hernandez Date of Evaluation: 07/04/23 Diagnosis: Right wrist pain Pain Location: Pain free at rest No aggravating pain w/ palpation At times painful w/ pressure in extension (pushing up, pressing through palm) High pain w/ pushing up, pushing through palm Pain Score: 8 Pain Scale Used: Numeric (0 - 10) Aggravating Factors: Pushing up, pressure through palm Alleviating Factors: Wrist orthosis Assessment: 27 yo female presents w/ right hand pain for the past 8 months. She saw her PCP for annual exam and was referred to OT to assess pain and for hand x-ray (has not completed yet). Today on assessment she reports pain free at rest and has good ROM, but strength w/ gross grasp and weightbearing through palm is low compared to left and causes onset of discomfort in ulnar wrist. She has some irritation to palpate ulnar wrist and some clicking w/ deviation, but otherwise no significant signs of carpal instability. 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 I anticipate she will do well w/ brief course of OT. 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 Thank you once again for your referral.
--- NOTE | 2023-07-23 13:45 | MHC.OT.DC ---
[address] [phone] F: [phone] Occupational Therapy Discharge Note Patient Name: Ora Hernandez Provider: Dr Casandra Mars Diagnosis: Right wrist pain Date of Evaluation: 07/04/23 Date of Discharge: 07/23/23 Treatments to Date: 1 Cancellations to Date: 0 No Shows to Date: 3 Discharge Status: Visit Non-compliance Discharge Summary: Ora was seen for initial OT assessment of right hand/wrist pain. She had good range but pain w/ grasp and weightbearing, consistent w/ carpal strain. She was given Wrist Widget for support w/ good results and educated on joint protection. She has missed several appointments and has not attended since initial eval. We will be discharging at this time per visit non-compliance policy. Electronically Signed By: KAREL Aldana/Daren CHT Reviewed/agree with student documentation: Therapist: Please Sign and return to therapist, thank you for your referral.
== END 2023-07-23 13:46 | disposition home or self-care (01) ==
LOC: HO.OT 09:23
PROVIDERS: PCP Internal Medicine; Visit Provider Internal Medicine
DX: M79.641 Pain in right hand (principal)
CPT/HCPCS: 97165

== ENCOUNTER 2023-10-08 07:45 | Outpatient (AMB) | payer OTHER, SELFPAY ==
--- NOTE | 2023-10-08 08:00 | MHC.OFFVIS ---
Intake Vital Signs 10/08/23 08:05 Height 5 ft 3 in Weight 121 lb BMI 21.4 BP 116/70 Blood Pressure Location Rt brachial Position Sitting Pulse 73 Pulse Source Pulse Oximeter Pulse Oximetry (%) 98 Oxygen Delivery Method Room Air Intake Visit Reasons: 3 mo f/u Syncope-Confirmed Intake Note: Patient presents for 3 month follow up. Allergies No Known Allergies [No Known Allergies*] Allergy (Verified 10/08/23 08:06) Medication List - Last Reconciled 10/08/23 by LUBNA Pantoja cholecalciferol (vitamin D3) 50 mcg PO DAILY 90 days magnesium oxide 400 mg PO BEDTIME 30 days midodrine 5 mg PO TID 90 days riboflavin (vitamin B2) 400 mg PO DAILY 30 days sumatriptan succinate 50 - 100 mg orally at onset of headache, may repeat in 2 hrs PRN; max 2 tabs per day or 4 tabs/week (may take with Ibuprofen) 30 days HPI HPI Comments History of Present Illness Details 27-yr-old female presents for f/u visit. Pt denies any significant interval medical changes. Pt denies any interval syncopal events. Compliant w/ Midodrine. She is having 4-5 migraine days per week. Her migraine starts frontal and moves into holocranial, pounding pain, a/w photophobia, phonophobia, nausea. The migraine usually starts around 5pm until she goes to bed. The Sumatriptan helps but she runs out. Has tried Amitriptyline in the past- did not tolerate. Last Resulted Lab Tests 07/04/23 10:18 WBC 6.1 RBC 4.72 Hgb 12.6 Hct 39.2 MCV 83.1 PT 12.4 INR 1.0 Fibrinogen 519 Sodium 140 Potassium 4.1 Chloride 106 Carbon Dioxide 27 Anion Gap 11 L BUN 11 Creatinine 0.76 Calcium 9.8 Total Bilirubin 0.4 AST 32 H ALT 9 Alkaline Phosphata se 66 Total Protein 7.8 Albumin 4.7 PFSH Medical History Acute bronchitis Hospital discharge follow-up Left ear pain Migraine Physical exam Syncope Surgical History History of section History of tubal ligation Family History Father Asthma Mother No problems noted. Paternal Uncle Colon cancer Social History Household Members: Children Housing: Apartment Alcohol intake: never Patient Tobacco Use Status: Never used Tobacco e-Cigarette/Vaping Use: Never Used Second Hand Smoke Exposure: No service: No Current occupational status: employed Current occupational exposures/hazards: No Cognitive needs: No Hearing needs: No Vision needs: No Female Reproductive History Menstrual Age of Menarche: 11 Review of Systems Const All systems reviewed & are unremarkable except as noted in HPI and below Physical Exam Vital Signs: Last Vital Signs Pulse 73 10/08/23 08:05 BP 116/70 10/08/23 08:05 Pulse Ox 98 10/08/23 08:05 Oxygen Delivery Method Room Air 10/08/23 08:05 BMI result Body Mass Index 21.4 Const General: cooperative and no acute distress Orientation/consciousness: patient oriented x3 HEENT Head: Yes normocephalic Resp Effort & Inspection: normal respiratory effort and able to speak in complete sentences Neuro General: patient oriented x3, gait normal and CN's II-XI intact bilaterally Cognition (Neuro): normal cognition Motor exam (neuro): 5/5 motor strength present throughout Psych Appearance: grossly normal Mental Status: mental status grossly normal Speech and movement: Normal speech and movement present Affect: normal affect Attitude: cooperative Thought process: Normal thought process present Thought content: Normal thought content present Insight: Good insight present (Psych) Judgement: Good judgement present (Psych) Assessment & Plan Assessment & Plan (1) Neurocardiogenic syncope: Comment: tilt-table test (February 2023 at [facility]): cardioinhibitory and vasodepressive response Code(s): R55 - Syncope and collapse (2) Migraine without aura: Code(s): G43.009 - Migraine without aura, not intractable, without status migrainosus Plan For syncope: Reviewed tilt-table test- neurocardiogenic syncope w/ cardioinhibitory and vasodepressive response- pt had syncopal episode a/w significant hypotension and bradycardia. Continue Midodrine 5mg tid Continue increased fluids and salt If symptoms worsen, we can refer back to cardiology. ? For migraine prevention tx: Continue Mag and B2 for prevention. Start Topiramate 25-50mg qhs. Previous migraine prevention trials: Amitriptyline- did not tolerate. Contraindications- all anti-HTN agents d/t h/o syncope, hypotension and bradycardia. For acute migraine tx: Continue Sumatriptan 100mg tab, 1/2 - 1 tab (50-100mg) at onset of headache, may repeat in 2 hours. Max of 2 tabs (200mg) per 24 hours. May adjunct with OTC Tylenol 650mg q 4 hours, Ibuprofen 600mg q 6 hours, or Naproxen 440mg q 12 hrs prn. She may try a warming migraine cap- online resources shared ? For Bruising: CBC, CMP, PT/INR, fibrinogen- NL Monitor ? f/u in 3-4 months or sooner prn Medications: New topiramate 25 - 50 mg (1 - 2 x 25 mg) PO BEDTIME 30 days 60 tabs 3RF Refilled riboflavin (vitamin B2) 400 mg PO DAILY 30 days 30 tabs 6RF sumatriptan succinate (0.5 - 1 x 100 mg) 50 - 100 mg orally at onset of headache, may repeat in 2 hrs PRN; max 2 tabs per day or 4 tabs/week (may take with Ibuprofen) 30 days 12 tabs 6RF migraine headache magnesium oxide may hold for loose stools 400 mg PO BEDTIME 30 days 30 tabs 6RF Coding Level of Care Code Est Pt Level 4 (15629) Diagnoses Neurocardiogenic syncope R55 Migraine without aura G43.009
[2023-10-08 08:05] VITALS: BP 116/70; PULSE 73; O2SAT 98; BMI 21.4
== END 2023-10-08 08:33 | disposition home or self-care (01) ==
PROVIDERS: PCP Internal Medicine; Visit Provider Nurse Practitioner Family
DX: R55 Syncope and collapse (principal); G43.009 Migraine without aura, not intractable, without status migrainosus
CPT/HCPCS: 99214

== ENCOUNTER → 2023-10-08 07:45 | Outpatient (BNVA) | payer OTHER, SELFPAY | PROVIDERS: PCP Internal Medicine; Visit Provider Nurse Practitioner Family | DX: R55 Syncope and collapse (principal); G43.009 Migraine without aura, not intractable, without status migrainosus | CPT/HCPCS: 99212 ==

== ENCOUNTER 2023-10-20 11:09 | Emergency (ER) | payer OTHER, SELFPAY ==
[2023-10-20 11:23] VITALS: BP 97/56; PULSE 118; RESP 18; TEMP 37.9; O2SAT 100; BMI 21.2
[2023-10-20] MEDS: Acetaminophen 325 MG TABLET 975 MG PO (11:37)
[2023-10-20 11:47] LABS: Appearance Urine Clear; Color Urine Dark Yellow; Glucose Urine UA Negative (Negative); Leukocyte Esterase Urine Small (1+) (Negative); Nitrite Urine Negative (Negative); PH 5.5 (5.0-9.0); Specific Gravity - Urine >= 1.030 (1.005-1.025); UMIC TRIGGER UACC YES; Urine Blood Negative (Negative); Urine Ketones 15 mg/dL (Negative); Urine Protein Negative (Neg-Trace)
[2023-10-20 11:52] LABS: Bacteria Urine 1+ (None Seen); Hyaline Casts Urine 0-2 /LPF (0-2); UACC Culture Trigger YES
[2023-10-20 11:58] VITALS: TEMP 39.2
[2023-10-20 12:04] LABS: MANUAL DIFF FLAG NO
[2023-10-20 12:06] LABS: Basophils Percent Auto 0.4 % (0-2); Eosinophils Percent Auto 0.2 % (0-4); Hematocrit 35.1 % (37.0-47.0); Hemoglobin 11.4 g/dl (12.0-16.0); Imm Gran Abs Auto 0.02 X10*3/uL (0.00-0.03); Imm Gran Pct Auto 0.4 % (0.0-0.4); Lymphocytes Absolute Auto 0.4 X10*3/uL (1.2-4.9); Lymphocytes Percent Auto 6.6 % (20-40); Mean Corpuscular HGB Conc 32.5 g/dl (31.0-35.0); Mean Corpuscular Hemoglobin 27.4 pg (27.0-33.0); Mean Corpuscular Volume 84.4 fL (80.0-98.0); Mean Platelet Volume 10.5 fL (9.4-12.3); Monocytes Absolute Auto 0.3 X10*3/uL (0.1-1.2); Monocytes Percent Auto 5.9 % (2-11); Neutrophils Absolute Auto 4.7 x10*3/uL (2.0-8.3); Neutrophils Percent Auto 86.5 % (45-73); Platelet Count 196 X10*3/uL (160-400); Red Blood Count 4.16 X10*6/uL (4.20-5.50); Red Cell Distribution Width 12.8 % (11.0-16.0); White Blood Count 5.4 X10*3/uL (4.8-10.8)
[2023-10-20 12:19] LABS: COVID-19 Test Positive (Negative); IDNOW Serial# 58CA691E
[2023-10-20 12:24] LABS: IDNOW Serial# 9DB6401D; Influenza A Negative (Negative); Influenza B2 Negative (Negative)
[2023-10-20 12:30] LABS: Alanine Aminotransferase 13 U/L (0-31); Alkaline Phosphatase 64 U/L (39-117); Anion Gap 12 (12-20); Aspartate Amino Transferase 38 U/L (5-31); Bilirubin Total 0.3 mg/dL (0.0-1.0); Blood Urea Nitrogen 9 mg/dL (9-16); Calcium 8.6 mg/dL (8.4-10.2); Carbon Dioxide 24 mmol/L (22-29); Chloride 104 mmol/L (96-108); Creatinine Clr Calc Pharmacy 86.9; Estimated Glomerular Filt Rate > 60; Glucose Random 164 mg/dL (60-115); Potassium 3.7 mmol/L (3.3-5.1); Sodium 136 mmol/L (135-145); Total Protein 6.8 g/dL (6.5-8.0)
[2023-10-20 12:32] LABS: HCG Quantitative < 2 mIU/mL
[2023-10-20] MEDS: Ibuprofen 400 MG TABLET PO (12:56)
[2023-10-20 12:58] VITALS: PULSE 88; TEMP 37.4; O2SAT 97
[2023-10-20 13:01] VITALS: TEMP 37.4
--- NOTE | 2023-10-20 13:05 | ED.ABDPAIN ---
HPI - Abdominal Pain General Chief Complaint: Abdominal Pain Stated Complaint: abd pain headache body aches Time Seen by Provider: 10/20/23 11:28 Source: patient and family () Mode of arrival: ambulatory History of Present Illness HPI narrative: 27-year-old female reports illness since yesterday with body aches, chills, nausea vomiting, sore throat and cough but denies any dysuria. Related Data Previous Rx's Medication Instructions Recorded cholecalciferol (vitamin D3) 50 50 mcg PO DAILY 90 days #90 caps 04/19/23 mcg (2,000 unit) capsule midodrine 5 mg tablet 5 mg PO TID 90 days #270 tabs 09/29/23 magnesium oxide 400 mg (241.3 mg 400 mg PO BEDTIME 30 days #30 tabs 10/08/23 magnesium) tablet riboflavin (vitamin B2) 400 mg 400 mg PO DAILY 30 days #30 tabs 10/08/23 tablet sumatriptan succinate 100 mg tablet 50 - 100 mg (0.5 - 1 x 100 mg) PO 10/08/23 .COMPLEX PRN migraine headache 30 days #12 tabs topiramate 25 mg tablet 25 - 50 mg (1 - 2 x 25 mg) PO 10/08/23 BEDTIME 30 days #60 tabs ondansetron 4 mg disintegrating 4 mg PO Q8H PRN nausea and 10/20/23 tablet vomiting 4 days #7 tabs Allergies Allergy/AdvReac Type Severity Reaction Status Date / Time No Known Allergies Allergy Verified 10/08/23 08:06 [No Known Allergies*] Review of Systems Review of Systems Pertinent positives and negatives as stated in HPI PMFSH Past Medical History Source: nursing notes reviewed Medical History Hospital discharge follow-up Acute bronchitis Physical exam Syncope Left ear pain Migraine Surgical History History of section History of tubal ligation Family History Family History Father Asthma Mother No problems noted. Paternal Uncle Colon cancer Social History Social History Household Members: Children Housing: Apartment Alcohol intake: never Patient Tobacco Use Status: Never used Tobacco e-Cigarette/Vaping Use: Never Used Second Hand Smoke Exposure: No Advance Directives: No Advance Directives Information Provided: No service: No Current occupational status: employed Current occupational exposures/hazards: No Cognitive needs: No Hearing needs: No Vision needs: No Physical Exam ED Vital Signs: Vital Signs - 24 hr 10/20/23 11:23 10/20/23 11:58 10/20/23 12:58 Temperature 100.3 F 102.6 F H 99.4 F Pulse Rate 118 H 88 Respiratory Rate 18 Blood Pressure 97/56 L Pulse Oximetry 100 97 Oxygen Delivery Method Room Air Room Air 10/20/23 13:01 Temperature 99.4 F Pulse Rate Respiratory Rate Blood Pressure Pulse Oximetry Oxygen Delivery Method BMI result Body Mass Index 21.2 VITAL SIGNS: Reviewed. GENERAL: Well developed, well nourished, in no acute distress. HEAD: Normocephalic/atraumatic EYES: PERRLA, EOMI EARS: Ext canals without abnormality, TMs non-bulging and non-erythematous NOSE: Nares patent bilateral OROPHARYNX: no oral lesions noted, posterior pharynx clear and non-erythematous without noted tonsillar enlargement/erythema/exudates NECK: Supple, no adenopathy LUNGS: Normal breath sounds. No adventitious sounds or accessory muscle use. SpO2<97> CARDIOVASCULAR: Regular rate and rhythm without noted murmurs ABDOMEN: Soft, non-tender, non-distended with bowel sounds. MUSCULOSKELETAL: No tenderness, deformities, or effusions noted on gross inspection. EXTREMITIES: No cyanosis, clubbing or edema. SKIN: Inspection of the skin reveals no rashes NEUROLOGIC: Alert and oriented x 4. Strength and sensation to light touch were grossly intact x 4. Medical Decision Making Medical Decision Making MDM Narrative: 27-year-old female with history and clinical presentation, DDX: Viral illness, UTI, clinical suspicion for intra-abdominal infection or renal colic given patient's body aches. I reviewed all investigations and hematologic indices are negative for leukocytosis there is a normocytic anemia that appears to be associated with menstruation and otherwise no thrombocytopenia. Chemistry indices are negative for gross abnormalities there is noted demonstrated CYN her electrolytes/liver enzyme derangements. Beta-hCG is undetectable ruling out ectopic at this time. Urinalysis is a dirty sample and will not treat for urinary tract infection. Viral testing is positive for COVID-19, patient received information regarding all results and findings. Both she and her partner understand that they will need to isolate for the next 5 days. Differential Diagnosis Differential Diagnoses: The differential diagnosis associated with the presentation includes Please see the discussion above Admission/Observation Consideration of admission/observation: Escalation of care including admission/observation considered Please see the discussion above Lab Data MDM Lab Attestation statement: I reviewed the patient's lab results. Please see the discussion above 10/20/23 11:59 10/20/23 11:59 Labs: Lab Results 10/20/23 10/20/23 Range/Units 11:40 11:59 WBC 5.4 (4.8-10.8) X10*3/uL RBC 4.16 L (4.20-5.50) X10*6/uL Hgb 11.4 L (12.0-16.0) g/dl Hct 35.1 L (37.0-47.0) % MCV 84.4 (80.0-98.0) fL MCH 27.4 (27.0-33.0) pg MCHC 32.5 (31.0-35.0) g/dl RDW 12.8 (11.0-16.0) % Plt Count 196 D (160-400) X10*3/uL MPV 10.5 (9.4-12.3) fL Immature Gran % (Auto) 0.4 (0.0-0.4) % Neut % (Auto) 86.5 H (45-73) % Lymph % (Auto) 6.6 L (20-40) % [place] % (Auto) 5.9 (2-11) % Eos % (Auto) 0.2 (0-4) % Baso % (Auto) 0.4 (0-2) % Lymph # (Auto) 0.4 L (1.2-4.9) X10*3/uL [place] # (Auto) 0.3 (0.1-1.2) X10*3/uL Eos # (Auto) 0.0 (0.0-0.4) X10*3/uL Baso # (Auto) 0.0 (0.0-0.2) X10*3/uL Abs Immat Gran (auto) 0.02 (0.00-0.03) X10*3/uL Absolute Neuts (auto) 4.7 (2.0-8.3) x10*3/uL Absolute Nucleated RBC 0.000 (0.0-0.012) X10*3/uL Nucleated RBC % (auto) 0.0 (0.0-0.2) /100WBC Sodium 136 (135-145) mmol/L Potassium 3.7 (3.3-5.1) mmol/L Chloride 104 (96-108) mmol/L Carbon Dioxide 24 (22-29) mmol/L Anion Gap 12 (12-20) BUN 9 (9-16) mg/dL Creatinine 0.79 (0.5-1.4) mg/dL Estim Creat Clear Calc 86.9 Estimated GFR > 60 Random Glucose 164 H (60-115) mg/dL Calcium 8.6 D (8.4-10.2) mg/dL Total Bilirubin 0.3 (0.0-1.0) mg/dL AST 38 H (5-31) U/L ALT 13 (0-31) U/L Alkaline Phosphatase 64 (39-117) U/L Total Protein 6.8 (6.5-8.0) g/dL Albumin 4.0 (3.5-5.0) g/dL Beta HCG, Quant < 2 mIU/mL Urine Color Dark Yellow Urine Appearance Clear Urine pH 5.5 (5.0-9.0) Ur Specific [place] >= 1.030 H (1.005-1.025) Urine Protein Negative (Neg-Trace) mg/dL Urine Glucose (UA) Negative (Negative) mg/dL Urine Ketones 15 (Negative) mg/dL Urine Blood Negative (Negative) Urine Nitrite Negative (Negative) Ur Leukocyte Esterase Small (1+) H (Negative) Urine RBC 3-5 H (0-2) /HPF Urine WBC 11-20 H (0-5) /HPF Ur Squamous Epith Cells 11-20 (0-2) /HPF Urine Bacteria 1+ (None Seen) Hyaline Casts 0-2 (0-2) /LPF COVID-19 (JIMMY) Positive A (Negative) COVID-19 Clin Com See Note Influenza Type A (CHEYENNE) Negative (Negative) Influenza Type B (CHEYENNE) Negative (Negative) Influenza A & B Note See Note External Record Review External record reviewed: Outpatient record, Prior outpatient labs and Prior outpatient radiology Medications Administered Discontinued Medications Generic Name Dose Route Start Last Admin Trade Name Osminq PRN Reason Stop Dose Admin Acetaminophen 975 mg 10/20/23 11:28 10/20/23 11:37 Acetaminophen 325 Mg Tablet PO 10/20/23 11:29 975 mg ONCE ONE Administration Ibuprofen 400 mg 10/20/23 12:20 10/20/23 12:56 Ibuprofen 400 Mg Tablet PO 10/20/23 12:21 400 mg ONCE ONE Administration Critical Care Time Critical Care Time Critical Care Time: Yes Total Critical Care Time: 30 Attestation: I personally attest to this time spent taking care of the patient. Discharge Plan Discharge Clinical Impression: Viral syndrome, Lab test positive for detection of COVID-19 virus Patient Disposition: Home, Self-Care Instructions: Viral Syndrome (ED), COVID-19 (Coronavirus Disease 2019) (ED) Additional Instructions: 1. Debe aislarse hasta el ingrid seg?n las pautas de los [facility]. Recomiende Tylenol/ibuprofeno de venta ranjana seg?n sea necesario para tra corporales, tra de jazzmine y temperaturas superiores a 100,4. Descanse mucho y silvio maxine agua. 2. Le he recetado un medicamento contra las n?useas y deber? recogerlo en la farmacia. 3. Juliette un seguimiento con woodruff m?dico de atenci?n primaria a finales de la pr?xima semana. Regrese a la josé luis de emergencias si los s?ntomas empeoran. 1. You must isolate until Sunday as per CDC guidelines. Recommend [id number] Tylenol/ibuprofen as needed for body aches, headaches, temperatures greater than 100.4. Get plenty of rest and drink plenty of water. 2. I have given you a prescription for antinausea medication and you will need to pick this up from the pharmacy. 3. Follow-up with your primary care doctor by the end of next week. Return to the ER for any worsening symptoms. Prescriptions: New ondansetron 4 mg tablet,disintegrating 4 mg PO Q8H PRN (Reason: nausea and vomiting) 4 Days Qty: 7 0RF No Action cholecalciferol (vitamin D3) 50 mcg (2,000 unit) capsule 50 mcg PO DAILY 90 Days Qty: 90 0RF midodrine 5 mg tablet 5 mg PO TID 90 Days Qty: 270 1RF topiramate 25 mg tablet 25 - 50 mg PO BEDTIME 30 Days Qty: 60 3RF sumatriptan succinate 100 mg tablet 50 - 100 mg PO .COMPLEX PRN (Reason: migraine headache) 30 Days Qty: 12 6RF Rx Instructions: 50 - 100 mg orally at onset of headache, may repeat in 2 hrs PRN; max 2 tabs per day or 4 tabs/week (may take with Ibuprofen) riboflavin (vitamin B2) 400 mg tablet 400 mg PO DAILY 30 Days Qty: 30 6RF magnesium oxide 400 mg (241.3 mg magnesium) tablet 400 mg PO BEDTIME 30 Days Qty: 30 6RF Rx Instructions: may hold for loose stools Referrals: Casandra Wilson MD [Primary Care Provider] - Stand Alone Forms: Work/School Release Print Language: New Zealander
== END 2023-10-20 13:30 | disposition home or self-care (01) ==
PROVIDERS: Emergency Provider Student in an Organized Health Care Education/Training Program; PCP Internal Medicine
DX: U07.1 COVID-19 (principal); B34.9 Viral infection, unspecified
CPT/HCPCS: 80053; 81001; 84702; 85025; 87086; 87502; 87635; 99283; 99284

== ENCOUNTER 2023-10-31 16:31 | Emergency (ER) | payer OTHER, SELFPAY ==
[2023-10-31 16:34] VITALS: BP 126/73; PULSE 78; RESP 18; TEMP 36.2; O2SAT 99; BMI 20.9
--- NOTE | 2023-10-31 16:36 | ED.LOWEXIN ---
HPI - Extremity Injury (Lower) General Chief Complaint: Extremity Injury, Lower Stated Complaint: finger inj Time Seen by Provider: 10/31/23 18:45 Source: patient, RN notes reviewed and old records reviewed History of Present Illness HPI Narrative: 27 yo F w/ PMHx migraines presenting to the ED c/o left 2nd toe pain and ecchymosis s/p jamming on couch today. Denies crush injury, numbness/tingling, injury to other area Related Data Previous Rx's Medication Instructions Recorded cholecalciferol (vitamin D3) 50 50 mcg PO DAILY 90 days #90 caps 04/19/23 mcg (2,000 unit) capsule midodrine 5 mg tablet 5 mg PO TID 90 days #270 tabs 09/29/23 magnesium oxide 400 mg (241.3 mg 400 mg PO BEDTIME 30 days #30 tabs 10/08/23 magnesium) tablet riboflavin (vitamin B2) 400 mg 400 mg PO DAILY 30 days #30 tabs 10/08/23 tablet sumatriptan succinate 100 mg tablet 50 - 100 mg (0.5 - 1 x 100 mg) PO 10/08/23 .COMPLEX PRN migraine headache 30 days #12 tabs topiramate 25 mg tablet 25 - 50 mg (1 - 2 x 25 mg) PO 10/08/23 BEDTIME 30 days #60 tabs ondansetron 4 mg disintegrating 4 mg PO Q8H PRN nausea and 10/20/23 tablet vomiting 4 days #7 tabs Allergies Allergy/AdvReac Type Severity Reaction Status Date / Time No Known Allergies Allergy Verified 10/31/23 16:37 [No Known Allergies*] Review of Systems Review of Systems: Constitutional:No Fever, No Chills ENT/Mouth: No Ear Pain, No Nasal Congestion, No sore throat, No Rhinorrhea, No Swallowing Difficulty Cardiovascular: No Chest Pain, No SOB Respiratory: No Cough, No Sputum, No Wheezing Musculoskeletal: +joint pain, No Myalgias, +Joint Swelling Skin: No Skin Lesions, No rash Neuro: No Weakness, No Numbness, No Paresthesias Yes all other systems are reviewed and are negative Constitutional: Constitutional: Reports as per [facility] Past Medical History Attestation statement: The following information was validated with the patient. Source: old records reviewed Onset Date is defined in the Problem List Problems that require an onset date and time if occurred within 24 hrs of arrival to the ED Aortic Dissection and Rupture; Neurologic impairment; Cardiopulmonary Arrest; Endotracheal Intubation; Insertion or Replacement of Mechanical Circulatory Assist Device Medical History Hospital discharge follow-up Acute bronchitis Physical exam Syncope Left ear pain Migraine Surgical History History of section History of tubal ligation Family History Family History Father Asthma Mother No problems noted. Paternal Uncle Colon cancer Social History Social History Household Members: Children Housing: Apartment Alcohol intake: never Patient Tobacco Use Status: Never used Tobacco e-Cigarette/Vaping Use: Never Used Second Hand Smoke Exposure: No service: No Current occupational status: employed Current occupational exposures/hazards: No Cognitive needs: No Hearing needs: No Vision needs: No Physical Exam Vital Signs: Vital Signs: Last Vital Signs Temp 97.1 F 10/31/23 16:34 Pulse 78 10/31/23 16:34 Resp 18 10/31/23 16:34 BP 126/73 10/31/23 16:34 Pulse Ox 99 10/31/23 16:34 O2 Del Method Room Air 10/31/23 16:34 BMI result Body Mass Index 20.9 Const: General: cooperative, healthy appearing and no acute distress Orientation/consciousness: patient oriented x3 Limitations: no limitations HEENT: Head: Yes normal to inspection and Yes atraumatic Ears: hearing grossly normal bilaterally General nose exam: Normal external nose present Face and sinus: Yes normal facial exam Eyes: General: appearance normal, both eyes and all related structures EOM: EOMs intact bilaterally Neck: Neck: Yes normal visual inspection and Yes no meningeal signs Resp: Effort & Inspection: normal respiratory effort and no respiratory distress Cardio: Rate: regular rate Peripheral pulses: popliteal pulses present Skin: Rashes: no rashes Wounds: no wounds Neuro: General: patient oriented x3, tone normal and no meningeal signs Cranial nerves: Yes CN's II-XII intact bilaterally Gait exam (Neuro): Antalgic gait present Extrem: Other: Left 2nd toe with the distal swelling/ecchymosis and tenderness. Neurovascularly intact Course Course Course Narrative: RME: 27 yo F w/ PMHx migraines presenting to the ED c/o L 2nd toe pain and ecchymosis s/p hitting on couch today L 2nd toe w/swelling and ecchymosis XR ordered Full HPI, ROS and PE to be performed by primary ED provider. XR foot LT min 3V IMPRESSION: Normal left foot. > toes john tapped for comfort. Results discussed with patient including worrisome signs and symptoms and strict return precautions, and when to return to the emergency department. They verbalized understanding and feel safe for discharge at this time. Medical Decision Making Medical Decision Making MDM Narrative: 27 yo F w/ PMHx migraines presenting to the ED c/o left 2nd toe pain and ecchymosis s/p jamming on couch today. On exam vital signs stable, NAD, nontoxic appearing, physical exam as noted above. Concern for does/foot fracture versus sprain Plan: X-rays Please refer to course for remaining clinical decision making, interpretation of labs/imaging results, and discussions with consultants and/or family members. Differential Diagnosis Differential Diagnoses: The differential diagnosis associated with the presentation includes As above Independent Interpretation I performed an independent interpretation of an: Plain X-Ray Radiology Impression Discussion of test interpretation with radiology: I have reviewed the radiologist's reading. External Record Review External record reviewed: Inpatient record, Office record, Outpatient record, Prior outpatient labs, Prior outpatient radiology, Primary care record and Outside ED record Tests considered The following testing was considered but not selected: As above Prescription Management I considered prescription management with: Pain Medication Discharge Plan Discharge Clinical Impression: Sprain of toe Patient Disposition: Home, Self-Care Instructions: Foot Sprain (ED) Additional Instructions: You did not break your toe You sprained your toe Ice and elevate Take Tylenol Motrin for pain Prescriptions: No Action cholecalciferol (vitamin D3) 50 mcg (2,000 unit) capsule 50 mcg PO DAILY 90 Days Qty: 90 0RF midodrine 5 mg tablet 5 mg PO TID 90 Days Qty: 270 1RF ondansetron 4 mg tablet,disintegrating 4 mg PO Q8H PRN (Reason: nausea and vomiting) 4 Days Qty: 7 0RF topiramate 25 mg tablet 25 - 50 mg PO BEDTIME 30 Days Qty: 60 3RF sumatriptan succinate 100 mg tablet 50 - 100 mg PO .COMPLEX PRN (Reason: migraine headache) 30 Days Qty: 12 6RF Rx Instructions: 50 - 100 mg orally at onset of headache, may repeat in 2 hrs PRN; max 2 tabs per day or 4 tabs/week (may take with Ibuprofen) riboflavin (vitamin B2) 400 mg tablet 400 mg PO DAILY 30 Days Qty: 30 6RF magnesium oxide 400 mg (241.3 mg magnesium) tablet 400 mg PO BEDTIME 30 Days Qty: 30 6RF Rx Instructions: may hold for loose stools Referrals: Casandra Wilson MD [Primary Care Provider] - 1 week
== END 2023-10-31 18:55 | disposition home or self-care (01) ==
PROVIDERS: Emergency Provider Emergency Medicine; PCP Internal Medicine
DX: S93.509A Unspecified sprain of unspecified toe(s), initial encounter (principal); W23.1XXA Caught, crushed, jammed, or pinched between stationary objects, initial encounter; Y93.9 Activity, unspecified; Y92.9 Unspecified place or not applicable; Y99.9 Unspecified external cause status; M79.675 Pain in left toe(s); R58 Hemorrhage, not elsewhere classified
CPT/HCPCS: 73630; 99282; 99283

== ENCOUNTER 2024-02-05 14:49 | Outpatient (AMB) | payer OTHER, SELFPAY ==
--- NOTE | 2024-02-05 15:25 | MHC.OFFVIS ---
Intake Vital Signs 02/05/24 15:30 Height 5 ft 3 in Weight 125 lb 6 oz BMI 22.2 BP 124/70 Blood Pressure Location Rt brachial Position Sitting Pulse 74 Pulse Source Pulse Oximeter Pulse Oximetry (%) 99 Oxygen Delivery Method Room Air Intake Visit Reasons: 4 mo f/u Syncope-CONF Intake Note: Patient presents for 4 months F/U. Allergies No Known Allergies [No Known Allergies*] Allergy (Verified 02/05/24 15:29) Medication List - Last Reconciled 02/05/24 by LUBNA Pantoja cholecalciferol (vitamin D3) 50 mcg PO DAILY 90 days magnesium oxide 400 mg PO BEDTIME 30 days midodrine 5 mg PO TID 90 days ondansetron 4 mg PO Q8H PRN 4 days riboflavin (vitamin B2) 400 mg PO DAILY 30 days sumatriptan succinate 50 - 100 mg orally at onset of headache, may repeat in 2 hrs PRN; max 2 tabs per day or 4 tabs/week (may take with Ibuprofen) 30 days topiramate 25 - 50 mg (1 - 2 x 25 mg) PO BEDTIME 30 days HPI HPI Comments History of Present Illness Details 28-yr-old female presents for f/u visit. Pt is accompanied by her partner. Pt denies any significant interval medical changes. She denies interval syncope. Complaint w/ Midodrine 5mg tid and increased fluids. She is having 3 migraine days per week, which respond to Sumatriptan but this causes nausea. She tried Topiramate, but it made her nauseous. Baseline headache characteristics: Starts frontal and moves into holocranial, pounding pain, a/w photophobia, phonophobia, nausea. The migraine usually starts around 5pm until she goes to bed. [facility] Medical History Hospital discharge follow-up Acute bronchitis Physical exam Syncope Left ear pain Migraine Surgical History History of section History of tubal ligation Family History Father Asthma Mother No problems noted. Paternal Uncle Colon cancer Social History Household Members: Children Housing: Apartment Alcohol intake: never Patient Tobacco Use Status: Never used Tobacco e-Cigarette/Vaping Use: Never Used Second Hand Smoke Exposure: No service: No Current occupational status: employed Current occupational exposures/hazards: No Cognitive needs: No Hearing needs: No Vision needs: No Female Reproductive History Menstrual Age of Menarche: 11 Physical Exam Vital Signs: Last Vital Signs Pulse 74 02/05/24 15:30 BP 124/70 02/05/24 15:30 Pulse Ox 99 02/05/24 15:30 Oxygen Delivery Method Room Air 02/05/24 15:30 BMI result Body Mass Index 22.2 Const General: cooperative and no acute distress Orientation/consciousness: patient oriented x3 Resp Effort & Inspection: normal respiratory effort and able to speak in complete sentences Neuro General: patient oriented x3 Cranial nerves: Yes CN's II-XII intact bilaterally Cognition (Neuro): normal cognition Psych Appearance: grossly normal Mental Status: mental status grossly normal Speech and movement: Normal speech and movement present Affect: normal affect Attitude: cooperative Assessment & Plan Assessment & Plan (1) Migraine without aura: Code(s): G43.009 - Migraine without aura, not intractable, without status migrainosus (2) Neurocardiogenic syncope: Comment: tilt-table test (February 2023 at [facility]): cardioinhibitory and vasodepressive response Code(s): R55 - Syncope and collapse Plan For syncope: Tilt-table test- neurocardiogenic syncope w/ cardioinhibitory and vasodepressive response- pt had syncopal episode a/w significant hypotension and bradycardia. Continue Midodrine 5mg tid Continue increased fluids and salt If symptoms worsen, we can refer back to cardiology. ? For migraine prevention tx: Continue Mag and B2 for prevention. Start Aimovig 140mg sc q month. Stop Topiramate 25-50mg qhs- not tolerated. Previous migraine prevention trials: Amitriptyline- did not tolerate. Contraindications- all anti-HTN agents d/t h/o syncope, hypotension and bradycardia. ? For acute migraine tx: Stop Sumatriptan 100mg tab, Trial rizatriptan 10mg prn- 1/2 - 1 tab (5-10mg) at onset of headache, may repeat in 2 hours. Max of 2 tabs (20mg) per 24 hours. May adjunct with OTC Tylenol 650mg q 4 hours, Ibuprofen 600mg q 6 hours, or Naproxen 440mg q 12 hrs prn. She may try a warming migraine cap- online resources shared. Previous acute migraine tx trials- Sumatriptan- effective, but causes nausea. ? f/u in 6 months or sooner prn Medications: New rizatriptan max 2 tabs per day or 4 tabs per week 5 - 10 mg (0.5 - 1 x 10 mg) PO Q2H 21 days PRN 12 tabs 3RF migraine headache erenumab-aooe (Aimovig Autoinjector) 140 mg subcut ONCE 30 days 1 mL 6RF Discontinued sumatriptan succinate Discontinued Reason: Doctor's Order (0.5 - 1 x 100 mg) 50 - 100 mg orally at onset of headache, may repeat in 2 hrs PRN; max 2 tabs per day or 4 tabs/week (may take with Ibuprofen) 30 days 12 tabs 6RF migraine headache Coding Level of Care Code Est Pt Level 4 (45606) Diagnoses Migraine without aura G43.009 Neurocardiogenic syncope R55
[2024-02-05 15:30] VITALS: BP 124/70; PULSE 74; O2SAT 99; BMI 22.2
== END 2024-02-05 16:07 | disposition home or self-care (01) ==
PROVIDERS: PCP Internal Medicine; Visit Provider Nurse Practitioner Family
DX: G43.009 Migraine without aura, not intractable, without status migrainosus (principal); R55 Syncope and collapse
CPT/HCPCS: 99214

== ENCOUNTER → 2024-02-05 14:49 | Outpatient (BNVA) | payer OTHER, SELFPAY | PROVIDERS: PCP Internal Medicine; Visit Provider Nurse Practitioner Family | DX: G43.009 Migraine without aura, not intractable, without status migrainosus (principal); R55 Syncope and collapse | CPT/HCPCS: 99212 ==

== ENCOUNTER 2024-08-07 15:27 | Outpatient (AMB) | payer OTHER, SELFPAY ==
--- NOTE | 2024-08-07 15:31 | MHC.OFFVIS ---
Vital Signs 08/07/24 15:33 Height 5 ft 3 in Weight 129 lb BMI 22.8 Intake Visit Reasons: 6 month F/U Intake Note: Patient presents for 6 month follow up. patient still getting headaches Allergies No Known Allergies [No Known Allergies*] Allergy (Verified 08/07/24 15:33) Medication List - Last Reconciled 08/07/24 by LUBNA Pantoja cholecalciferol (vitamin D3) 50 mcg PO DAILY 90 days erenumab-aooe (Aimovig Autoinjector) 140 mg subcut ONCE 30 days galcanezumab-gnlm (Emgality Pen) 240 mg (2 mL) subcut ONCE 30 days magnesium oxide 400 mg PO BEDTIME 30 days midodrine 5 mg PO TID 90 days ondansetron 4 mg PO Q8H PRN 4 days riboflavin (vitamin B2) 400 mg PO DAILY 30 days rizatriptan 5 - 10 mg (0.5 - 1 x 10 mg) PO Q2H PRN 21 days topiramate 25 - 50 mg (1 - 2 x 25 mg) PO BEDTIME 30 days HPI Comments Details: 28-yr-old female presents for f/u visit. Pt is accompanied by her partner. Pt denies any significant interval medical changes. She denies interval syncope. Complaint w/ Midodrine 5mg tid and increased fluids. She is having more migraine attacks. She is now having 4 migraine days per week. Rizatriptan is helpful but it does make her a bit nauseous. She does use Zofran prn which helps. Aimovig was denied insurance, formulary required Emgality. Thus, we ordered Emgality which was approved. However, she never started Emgality, as the pharmacy did not fill it. Baseline headache characteristics: Starts frontal and moves into holocranial, pounding pain, a/w photophobia, phonophobia, nausea. The migraine usually starts around 5pm until she goes to bed. [facility] Medical History Hospital discharge follow-up Acute bronchitis Physical exam Syncope Left ear pain Migraine Surgical History History of section History of tubal ligation Family History Father Asthma Mother No problems noted. Paternal Uncle Colon cancer Social History Household Members: Children Housing: Apartment Alcohol intake: never Patient Tobacco Use Status: Never used Tobacco e-Cigarette/Vaping Use: Never Used Second Hand Smoke Exposure: No service: No Current occupational status: employed Current occupational exposures/hazards: No Cognitive needs: No Hearing needs: No Vision needs: No Female Reproductive History Menstrual Age of Menarche: 11 Physical Exam Vital Signs: BMI result Body Mass Index 22.8 Assessment & Plan Assessment & Plan (1) Migraine without aura: Code(s): G43.009 - Migraine without aura, not intractable, without status migrainosus Category: Medical (2) Neurocardiogenic syncope: Comment: tilt-table test (February 2023 at [facility]): cardioinhibitory and vasodepressive response Code(s): R55 - Syncope and collapse Category: Medical Plan For syncope: Tilt-table test- neurocardiogenic syncope w/ cardioinhibitory and vasodepressive response- pt had syncopal episode a/w significant hypotension and bradycardia. Continue Midodrine 5mg tid Continue increased fluids and salt If symptoms worsen, we can refer back to cardiology. ? For migraine prevention tx: Continue Mag and B2 for prevention. Aimovig order d/c'd d/t insurance denied. Start Emgality 120mg/ml auto-injection: Loading dose: 240mg (2 120mg/ml autoinjections) via subcutaneous injection in 2 different sites). Then in 30 days, start Maintenance dose 120mg (120mg/ml autoinjector) subcutaneous injection every month. Patient will do injection training w/ Emgality sample today. Important considerations: Emgality will likely require insurance prior authorization prior to receiving it from the pharmacy. Potential side effects include allergic reaction and injection site reactions. Store Emgality in it's original packaging in order to protect from light. Emgality can be left out of the fridge for?up to 7 days at a temperature not above 86?F. If these conditions are exceeded, then Emgality must be thrown away. Once Emgality has been stored out of refrigeration, do not place it back in the refrigerator. Previous migraine prevention trials: Amitriptyline- did not tolerate. Topiramate 25-50mg qhs- not tolerated Contraindications- all anti-HTN agents d/t h/o syncope, hypotension and bradycardia. Emgality injection training provided: Emgality 120mg/ml X2 injection sample provided. Lot #[id number] and Exp 2025Nov 27. Education regarding injection and side effects provided. Emgality 120mg/ml injection administered on LLQ and RLQ. Pt tolerated and demonstrated the injection well. Injection training and documentation by Carlie Clark RN ? For acute migraine tx: Continue rizatriptan 10mg prn- 1/2 - 1 tab (5-10mg) at onset of headache, may repeat in 2 hours. Max of 2 tabs (20mg) per 24 hours. May adjunct with OTC Tylenol 650mg q 4 hours, Ibuprofen 600mg q 6 hours, or Naproxen 440mg q 12 hrs prn. Continue ondansetron 4mg q8hrs prn N/V. Offered to trial alternate triptan- pt declines at this time. She may try a warming migraine cap- online resources shared. Previous acute migraine tx trials- Sumatriptan- effective, but causes nausea. ? f/u in 6 months or sooner prn Medications: Discontinued erenumab-aooe Discontinued Reason: Doctor's Order 140 mg subcut ONCE 30 days 1 mL 6RF topiramate Discontinued Reason: Doctor's Order 25 - 50 mg (1 - 2 x 25 mg) PO BEDTIME 30 days 60 tabs 3RF Coding Level of Care Code Est Pt Level 4 (37378) Diagnoses Migraine without aura G43.009 Neurocardiogenic syncope R55
[2024-08-07 15:33] VITALS: BMI 22.8
== END 2024-08-07 16:43 | disposition home or self-care (01) ==
PROVIDERS: PCP Internal Medicine; Visit Provider Nurse Practitioner Family
DX: G43.009 Migraine without aura, not intractable, without status migrainosus (principal); R55 Syncope and collapse
CPT/HCPCS: 99214

== ENCOUNTER → 2024-08-07 15:27 | Outpatient (BNVA) | payer OTHER, SELFPAY | PROVIDERS: PCP Internal Medicine; Visit Provider Nurse Practitioner Family | DX: G43.009 Migraine without aura, not intractable, without status migrainosus (principal); R55 Syncope and collapse | CPT/HCPCS: 99212 ==

== ENCOUNTER 2024-11-20 09:17 | Outpatient (AMB) | payer OTHER, SELFPAY ==
--- NOTE | 2024-11-20 10:44 | AM.OFFWIN_ITS ---
Intake Vital Signs 11/20/24 10:45 Weight 126 lb BP 112/68 Blood Pressure Location Rt brachial Position Sitting Pulse 87 Pulse Source Pulse Oximeter Temp 98.1 F Temp Source Oral Pulse Oximetry (%) 100 Oxygen Delivery Method Room Air Intake Visit Reasons: EP-body ache, nauseas, belly ache, body weakness Intake Note: Patient here for body aches, headaches, vomiting, nausea and stomach pain that started yesterday. Patient Tobacco Use Status: Never used Tobacco Allergies No Known Allergies [No Known Allergies*] Allergy (Verified 11/20/24 10:47) Do you need a note to return to daycare/school/sports/work: Yes HPI HPI Comments History of Present Illness Details History of Present Illness Patient is a 28-year-old female complaining of 2 days of abdominal pain, nausea and vomiting but no diarrhea. She has also subjective fever and chills. She denies any cough, shortness of breath, wheezing, ear pain, sinus pain, head congestion or chest congestion. She tells me that her and her son were sick with similar symptoms last week but they did not get any medical care for their symptoms, nor did they get tested for any viruses. She did tell me she tested herself at home this morning for COVID and it was negative. Physical Exam General: Cooperative, healthy appearing, comfortable, no acute distress and well developed Orientation: Patient oriented x3 Limitations: No limitations Head: Normal to inspection Ears: Hearing grossly normal bilaterally Nose: Normal Nxternal nose present Face and sinus: ormal facial exam Eyes: Appearance normal, both eyes and all related structures Neck: Normal visual inspection and Yes full ROM Respiratory: Normal respiratory effort and able to speak in complete sentences. Clear to auscultation bilaterally Cardiovascular: Regular rate and rhythm. Normal S1 and S2 GI: Hypoactive bowel sounds, no tenderness to palpation Skin: No rashes or lesions noted Neuro: Patient oriented x3 Extremities: Normal to inspection Plan [facility] Medical History Hospital discharge follow-up Acute bronchitis Physical exam Syncope Left ear pain Migraine Surgical History History of section History of tubal ligation Family History Father Asthma Mother No problems noted. Paternal Uncle Colon cancer Social History Household Members: Children Housing: Apartment Alcohol intake: never Patient Tobacco Use Status: Never used Tobacco e-Cigarette/Vaping Use: Never Used Second Hand Smoke Exposure: No service: No Current occupational status: employed Current occupational exposures/hazards: No Cognitive needs: No Hearing needs: No Vision needs: No Female Reproductive History Menstrual Age of Menarche: 11 Review of Systems Const All systems reviewed & are unremarkable except as noted in HPI and below Physical Exam Vital Signs: Last Vital Signs Temp 98.1 F 11/20/24 10:45 Pulse 87 11/20/24 10:45 BP 112/68 11/20/24 10:45 Pulse Ox 100 11/20/24 10:45 Oxygen Delivery Method Room Air 11/20/24 10:45 Assessment & Plan Assessment & Plan (1) Viral gastroenteritis: Code(s): A08.4 - Viral intestinal infection, unspecified Plan: Likely viral gastroenteritis, could be flu. I did do flu COVID and RSV testing. If these tests are all negative, explained to the patient that it is likely the norovirus that is going around which is extremely contagious. Educated patient on brat diet, what she had her hands with soap and water for 45 seconds to 1 minute, cleaning all come in touch services in her home with the bleach wipe. Explained that antibacterial products do not kill the norovirus. She should err on the side of caution and stay out of work until she is symptom-free and fever free for 24 hours however if it is the norovirus, she is contagious for up to 4 days after she is feeling better. Advised that I would write a work note for up to 5 days. Recommended hydrating with Gatorade and water, alternating. Patient was informed and verbally consented to the use of an ambient scribe for clinic note documentation during this visit. Orders: Orders SARS-CoV2/FLU/RSV Today R09.89 - Other specified symptoms and signs involving the circulatory and respiratory systems Coding Level of Care Code Est Pt Level 3 (27574) Diagnoses Viral gastroenteritis A08.4
[2024-11-20 10:45] VITALS: BP 112/68; PULSE 87; TEMP 36.7; O2SAT 100
== END 2024-11-20 11:30 | disposition home or self-care (01) ==
PROVIDERS: PCP Internal Medicine; Visit Provider Physician Assistant
DX: A08.4 Viral intestinal infection, unspecified (principal)

== ENCOUNTER 2024-11-20 09:17 | Outpatient (REF) | payer OTHER, SELFPAY ==
[2024-11-20 15:08] LABS: Influenza A PCR NEGATIVE (Negative); Influenza B PCR NEGATIVE (Negative); Resp Syncy Virus RNA Qual PCR NEGATIVE (Negative); SARS COV2 PCR INHOUSE NEGATIVE (Negative)
== END 2024-11-20 09:18 | disposition home or self-care (01) ==
LOC: HO.LAB 09:17
PROVIDERS: PCP Internal Medicine; Visit Provider Physician Assistant
DX: A08.4 Viral intestinal infection, unspecified (principal); R09.89 Other specified symptoms and signs involving the circulatory and respiratory systems
CPT/HCPCS: 0241U; 99212

== ENCOUNTER 2024-12-02 15:48 | Outpatient (AMB) | payer OTHER, SELFPAY ==
--- NOTE | 2024-12-02 15:53 | A.OFFPC_ITS ---
Vital Signs 12/02/24 15:55 Height 5 ft 3 in Weight 124 lb BMI 22.0 BP 110/70 Blood Pressure Location Lt brachial Position Sitting Intake Visit Reasons: PE Intake Note: Patient here for a physical exam Sheriff Officer Required: Yes Sheriff Officer Language: Medical Operations Supervisor Name: Casandra Mars MD Information Interpreted: non-clinical & clinical Accompanied by: Spouse Allergies No Known Allergies [No Known Allergies*] Allergy (Verified 12/02/24 16:23) Medication List - Last Reconciled 12/02/24 by Casandra Mars MD [id number] (Emgality Pen) 120 mg subcut ONCE 30 days midodrine 5 mg PO TID 90 days rizatriptan 5 - 10 mg (0.5 - 1 x 10 mg) PO Q2H PRN 21 days Tobacco use date assessed: 12/02/24 Dental Screening Dental Screen Date: 12/02/24 Did you have a dental visit in the last 12 months?: Yes Did you have a dental problem in the last 6 months where you did not have access to dental care?: No Was dental information given to patient?: Patient has dentist HPI HPI Comments History of Present Illness Details The patient is a 28-year-old female presenting for a routine follow-up examination, medication review, and health maintenance. She has a history of migraine, for which she uses Emgaility injections and Rizatriptan as needed. Lately, she has been taking a different medication, Gizatripan, which has induced side effects such as nausea and vomiting, prompting a need for reassessment with her neurologist. The patient's history also includes essential hypertension, currently managed with Midodrine 5 mg three times daily. She exper iences episodes of feeling weak and excessively sleepy, potentially linked to her hypertensive medication. 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 She has utilized a wrist splint as a temporary measure. The patient has undergone nerve conduction studies in the past. Regarding her immunization status, her last tetanus vaccine was administered in 2013, with consideration needed for an update. She underwent a Pap smear in 2021, remaining current. Her surgical history includes two sections with subsequent tubal ligation performed to prevent further pregnancies. Her familial history reveals a father with asthma and a mother without significant medical conditions. - Tetanus vaccination is overdue with th e last administration in 2013. - Pap smear was conducted in 2021 and re jerman current. - Planning for routine laboratory work, including cholesterol, blood glucose, renal function, hepatic profile, and vitamin D levels. [facility] Medical History (Updated 12/02/24 @ 16:36 by Casandra Mars MD) Hospital discharge follow-up Acute bronchitis Physical exam Syncope Left ear pain Migraine Surgical History History of section History of tubal ligation Family History Father Asthma Mother No problems noted. Paternal Uncle Colon cancer Social History Household Members: Children Housing: Apartment Alcohol intake: never Patient Tobacco Use Status: Never used Tobacco e-Cigarette/Vaping Use: Never Used Second Hand Smoke Exposure: No service: No Current occupational status: employed Current occupational exposures/hazards: No Cognitive needs: No Hearing needs: No Vision needs: No Female Reproductive History Menstrual Age of Menarche: 11 Questionnaire PHQ-9 Over the last 2 weeks, how often have you been bothered by any of the following problems? 1. Little interest or pleasure in doing things: not at all 2. Feeling down, depressed, or hopeless: not at all 3. Trouble falling or staying asleep, or sleeping too much: not at all 4. Feeling tired or having little energy: several days 5. Poor appetite or overeating: not at all 6. Feeling bad about yourself - or that you are a failure or have let yourself or your family down: not at all 7. Trouble concentrating on things, such as reading the newspaper or watching te levision: not at all 8. Moving or speaking so slowly that other people could have noticed. Or the opposite - being so fidgety or restless that you have been moving around a lot more than usual: not at all 9. Thoughts that you would be better off or of hurting yourself in some way: not at all Total score: 1 Depression Screening Interpretation: Negative Depression Screening Done: Yes 21713 - PHQ-9 Billing: Yes Source: Developed by Drs. Tunde Hodges, Marcio Epps and colleagues, with an educational conner from [employer]. Thrive Questionnaire Date Thrive assessed: 12/02/24 I am a: Patient What is your living situation today?: I have a steady place to live Within the past 12 months, did the food you bought not last and you didn't have the money to get more?: Never true Within the past 12 months, did you worry whether your food would run out before you got money to buy more?: Never true Do you have trouble paying for medicines?: No Do you have trouble getting transportation to medical appointments?: No Do you have trouble paying your heating and electricity bill?: No Do you have trouble taking care of your child, family member or friend?: No Do you have trouble with day-to-day activities such as bathing, preparing meals, shopping, managing finances, etc.?: No Are you currently unemployed and looking for a job?: No Are you interested in more education?: No Please select the resources that you would like help with: None Currently or been in a relationship where the following occur: No concerns reported THRIVE Score: 0 AUDIT C Alcohol Use Questionnaire (AUDIT-C) 1. How often do you have a drink containing alcohol?: Never Total Score: 0 Score Reviewed/Action Taken: No LUZ MARINA-7 AMB Questionnaire LUZ MARINA-7 Date LUZ MARINA - 7 assessed: 12/02/24 Feeling nervous, anxious, or on edge: 0 = Not at all Not being able to stop or control worryin = Not at all Worrying too much about different things: 0 = Not at all Trouble relaxin = Not at all Being so restless that it is hard to sit still: 0 = Not at all Becoming easily annoyed or irritable: 0 = Not at all Feeling afraid as if something awful might happen: 0 = Not at all Total LUZ MARINA-7 score (0-4 normal; 5-9 mild; 10-14 moderate; 15-21 severe): 0 Source: Developed by Drs. Tunde Hodges, Marcio Epps and colleagues, with an educational conner from [employer]. LUZ MARINA-7 Assessment Billing LUZ MARINA-7 Assessment Tool: LUZ MARINA-7 Assessment 40288 Review of Systems Const All systems reviewed & are unremarkable except as noted in HPI and below Card Denies chest pain at rest, Denies chest pain with activity, Denies edema, Denies irregular heart rhythm, Denies claudication, Denies dyspnea, Denies dyspnea on exertion, Denies orthopnea, Denies paroxysmal nocturnal dyspnea and Denies slow heart rate Resp Denies cough, Denies dyspnea and Denies dyspnea on exertion Physical exam (Primary Care) Vital Signs: Last Vital Signs BP 110/70 12/02/24 15:55 BMI result Body Mass Index 22.0 Tobacco/Smoking Status: Tobacco use Status Tobacco use date assessed 12/02/24 12/02/24 16:01 Patient Tobacco Use Status Never used Tobacco 12/02/24 16:01 e-Cigarette/Vaping Use Never Used 12/02/24 16:01 PHQ-9: PHQ-9 Score PHQ-9: Total score 1 12/02/24 16:48 Depression Screening Interpretation: Negative Thrive Assessment: Date of Thrive Assessment Date Thrive assessed 12/02/24 12/02/24 16:01 Currently or been in a relationship where the following occur: No concerns reported [facility] Head: Yes normal to inspection, Yes normocephalic and Yes atraumatic Ears: external ears normal Eyes General: appearance normal, both eyes and all related structures Eyelids: Yes eyelids normal Conjunctivae: conjunctivae normal Neck Neck: Yes normal visual inspection and Yes supple Resp Effort & Inspection: normal respiratory effort Auscultation: clear to auscultation bilaterally Cardio Jugular venous distension: no JVD Rate: regular rate Rhythm: regular rhythm Heart sounds: S1 normal heart sound present and S2 normal heart sound present GI Inspection: Yes normal to inspection Palpation (GI): Soft to palpation and nontender Auscultation: normal bowel sounds Skin General skin exam: no rashes or lesions noted Neuro General: no focal motor deficits Extrem General: Yes full ROM Psych Appearance: grossly normal Office Procedures Flu Questionnaire Does the patient have a severe egg allergy?: No Immunizations Fluarix Triv 8158-1014 (PF) 45 mcg (15 mcg x 3)/0.5 mL IM syringe Performing Provider: Casandra Mars MD [facility] [place] [facility] Documented (not given) by: MARTIN Greenfield on 12/02/24 16:02 Reason Not Given: Patient Refused Boostrix Tdap 2.5 Lf unit-8 mcg-5 Lf/0.5 mL intramuscular syringe Performing Provider: Casandra Mars MD Performing Location: [facility] [place] [facility] Administered by: MARTIN Greenfield on 12/02/24 16:48 Dose Route Admin Location Dispensed Lot Number Expiration Date ND Quarry Manager 0.5 mL IM Left Deltoid 0.5 mL [id number] 01/17/27 [id number] [employer] VIS Given Date VIS Provided VIS Publication Date 12/02/24 Single Vaccine 21 Eligibility Eligibility Date Funding Source Not [facility] Eligible 12/02/24 Private Coding Level of Care Code Est Pt Level 3 (97368) Est Pt Prev Care 18-39y(31423) Diagnoses Physical exam Z00.00 Right hand pain M79.641 Additional Codes LUZ MARINA-7 Assessment Billing - LUZ MARINA-7 Assessment Tool: LUZ MARINA-7 Assessment 52312 ([id number]) PHQ-9 - 47418 - PHQ-9 Billing: Yes ([id number]) Time Spent (min) 33 Assessment & Plan Assessment & Plan (1) Physical exam: Code(s): Z00.00 - Encounter for general adult medical examination without abnormal findings Category: Medical (2) Right hand pain: Code(s): M79.641 - Pain in right hand Category: Medical Plan - Review and possibly modify migraine treatment with neurologist due to new side effects from current migraine medication. - Continue current management of essential hypertension and monitor symptoms of weakness and sleepiness. - Recommend consideration of a hand surgery consultation for wrist pain evaluation and further management. - Update tetanus immunization to maintain current status. - Conduct routine bloodwork to assess cholesterol, glucose, renal, hepatic function, and vitamin D levels. Patient was informed and verbally consented to the use of an ambient scribe for clinic note documentation during this visit. I discussed the need to review the patient's migraine treatment plan with her neurologist due to nausea and vomiting associated with Gizatripan. We will continue monitoring her hypertension, given her symptoms of weakness and sleepiness, as they may relate to her medication. I advised considering a hand surgeon for her ongoing wrist pain and use of a wrist splint as a temporary measure. Her immunization status requires updating with a tetanus vaccine. A comprehensive panel of blood tests will be conducted to evaluate current health parameters, including cholesterol, glucose, and vitamin D levels. Orders: Orders Influenza [id number] Immunization Today Z23 - Encounter for immunization Comprehensive [place]. Panel Fast Today Z00.00 - Encounter for general adult medical examination without abnormal findings Lipid Panel Today Z00.00 - Encounter for general adult medical examination without abnormal findings TDaP Immunization Today Z23 - Encounter for immunization Vitamin D 25-OH Total Today E55.9 - Vitamin D deficiency, unspecified Complete Blood Count Auto Diff Today D64.9 - Anemia, unspecified IRON PROFILE Today D64.9 - Anemia, unspecified Referrals Orthopedics Referral M79.641 - Pain in right hand Patient Instructions: - Schedule an appointment with your neurologist to discuss migraine medication side effects. - Continue taking Midodrine as prescribed and report any persisting symptoms of weakness or tiredness. - Utilize a wrist splint as needed and consider a consultation with a hand surgeon. - Arrange to update your tetanus immunization. - Proceed with the recommended laboratory tests when scheduled.
--- OUTSIDE RECORDS SUMMARY | 2024-12-02 15:53 | XMS_ITS | Clinical Summary ---
Author Organization [facility] Address [address] [place] [address] Care Team Providers Care Hand Scudder Name Role Phone Unavailable Primary Care Provider Unavailabl e Source Comments PLEASE NOTE, if this patient is a minor, it may be UNLAWFUL to discuss sensitive information that is contained in these records (such as FAMILY PLANNING, MENTAL HEALTH or SUBSTANCE ABUSE) with the minor patient's parent or other person without the patient's specific authorization.[facility] Immunizations Name Administration Dates Next Due Moderna COVID-19 Vaccine, re d cap blue label, 12+ Primary Series 03/01/2021,02/01/2021 Social History Tobacco Use Types Packs/Day Years Used Date Smoking Tobacco: Never Assessed Social Connections Answer Date Recorded Social Connections and Isolation 0 02/01/2021 Financial Resource Strain Answer Date R ecorded Financial Resource Strain 0 2020 Stress Answer Date Recorded Stress 0 02/01/2021 Physical Activity Answer Date Recorded Physical Activity 0 02/01/2021 Food Insecurity Answer Date Recorded Food 0 02/01/2021 Transportation Needs Answer Date Record ed Transportation 0 02/01/2021 Housing Stability Answer Date Recorded Housing 0 02/01/2021 Safety and Environment Answer Date Aftab rded Safety 0 02/01/2021 Utilities Answer Date Recorded Utilities 0 02/01/2021 Employment Answer Date Recorded Employment 0 02/01/2021 Comments Unknown Sex and Gender Information Value Date Recorded Sex Assigned at Not on file Legal Sex Female 10:44 AM PDT Gender Identity Not on file Sexual Orientation Not on file Plan of Treatment Health Maintenance Due Date Last Done Comments HPV Screening 1993 Hepatitis C Screening 1993 Pap + HPV 1993 Tobacco Screening 1993 HIV Screening 2008 Relationship Safety Screening/Counseling 2008 Annual Preventive Care Visit 2011 Hypertension Screening (#1) 2011 Imm-Hepatitis B (1 of 3 - 19 + 3-dose series) 2012 Cervical Cancer Screening 2014 Pap Smear 2014 Alcohol and Drug Screen 10/29/2023 Depression Annual Screen 10/29/2023 Imm-DTaP/Tdap/Td (2 - Td or Tdap) 12/03/2023 014 [id number] (3 - 2023- season) 2024 021, 02/01/2021 Imm-Influenza (#1) 2024 08/05/2019, 08/20/2017 Cervical Ablation/Cold-Knife Conization Discontinued Cervical Cryotherapy Discontinued Colposcopy Discontinued Endometrial Biopsy Discontinued Excision/Leep Discontinued HPV Genotyping Discontinued Vaginal Pap Discontinued Vulvoscopy Discontinued Insurance [employer] PLAN Member Subscriber Plan / Payer (Ef fective 2021-Present) Name:Ora Hernandez Relation to Subscriber:Self Name:Ora Hernandez Payer ID:[id number] Group ID:[id number] Type:Medicaid Address: [facility] [address] [place] [address]
--- OUTSIDE RECORDS SUMMARY | 2024-12-02 15:53 | XMS_ITS | Clinical Summary ---
Author Organization [facility] Address [address] [place] [address] Care Team Providers Care Global Regulatory Lead Name Role Phone Casandra Wilson MD Primary Care Provider [phone] Allergies No known active allergies Social History Tobacco Use Types Packs/Day Years Used Date Smoking Tobacco: Never Smokeless Tobacco: Never Sex and Gender Information Value Date Recorded Sex Assigned at Not on file Gender Identity Not on file Sexual Orientation Not on file Last Filed Vital Signs Vital Sign Reading Time Taken Comments Blood Pressure 105/54 07/03/2022 3:33 PM EDT Pulse 94 07/03/2022 3:33 PM EDT Temperature 37.1 ??C (98.8 ??F) 07/03/2022 3:33 PM ED T Respiratory Rate 18 07/03/2022 3:33 PM EDT Oxygen Saturation 97% 07/03/2022 3:33 PM EDT Inhaled Oxygen Concentration - - Weight - - Height - - Body Mass Index - - Plan of Treatment Health Maintenance Due Date Last Done Comments Hepatitis C Virus Screening 1993 HIV Screening 2006 DTaP/Tdap/Td Vaccines (1 - Tdap) 2012 Hepatitis B Vaccines (1 of 3 - 19+ 3-dose series) 2012 Pap Smear (Ages 21-65) 2014 Influenza Vaccine 05/29/2024 COVID-19 Vaccine ( - 2023-2 5 season) 2024 03/01/2021, 02/01/2021 HPV Vaccines Aged Out No longer eligi ble based on patient's age to complete this topic Pneumococcal Vaccine: Pediatric (0-5 Years) and At-Risk Patients (6 to 49 Years) Aged Out No longer eligible b ased on patient's age to complete this topic Care Teams Global Regulatory Lead Relationship Specialty Start Date End Date Casandra Wilson MD [address] [place] [address] PCP - General Family Medicine 07/03/22
--- OUTSIDE RECORDS SUMMARY | 2024-12-02 15:53 | XMS_ITS | Clinical Summary ---
Author Organization [address] [place] [address] [place] [id number] Phone Care Team Providers Care Breast Buffer Name Role Phone Casandra Mars MD Primary Care Provider [phone] Surgical History Surgery Date Site/Laterality Comments SECTION PROCEDURE: HISTORICAL DELIVERY; COMMENT: 2010 Medical History Medical History Date Comments Abscess of skin 07/16/2017 DX:Abscess of sk in; COMMENT: recurrent Breast pain 07/16/2017 DX:Breast pain Migraine 07/16/2017 DX:Migraine Family History Medical History Relation Name Comments Asthma Maternal Grandfather Lung cancer Uncle paternal Relation Name Status Comments Maternal Grandfather Uncle paternal Alive Social History Tobacco Use Types Packs/Day Years Used Date Smoking Tobacco: Never Smokeless Tobacco: Never Sex and Gender Information Value Date Recorded Sex Assigned at Not on file Gender Identity Not on file Sexual Orientation Not on file Obstetrics History Plan of Treatment Health Maintenance Due Date Last Done Comments DTaP,Tdap,and Td Vaccines (1 - Tdap) 2012 Hepatitis B Vaccines (1 of 3 - 19+ 3-dose series) 2012 Cervical Cancer Screening: P ap Smear 2014 Depression Screening 10/01/2022 HIV Screening 10/01/2022 Hepatitis C Screening 10/01/2022 Social Influencers of Health Screening 10/01/2022 COVID-19 Vaccine ( - 2023-2 5 season) 2024 Influenza Vaccine (#1) 2024 HIB Vaccines Aged Out No longer eligi ble based on patient's age to complete this topic HPV Vaccines Aged Out No longer eligi ble based on patient's age to complete this topic Hepatitis A Vaccines Aged Out No long er eligible based on patient's age to complete this topic IPV Vaccines Aged Out No longer eligi ble based on patient's age to complete this topic MMR Vaccines Aged Out No longer eligi ble based on patient's age to complete this topic Meningococcal ACWY Vaccine Aged Out N o longer eligible based on patient's age to complete this topic Pneumococcal Vaccine: Pediat rics (0 to 5 Years) and At-Risk Patients (6 to 64 Years) Aged Out No longer eligible b ased on patient's age to complete this topic RSV Immunization Patients Un cliff 20 months Aged Out No longer eligible b ased on patient's age to complete this topic Varicella Vaccines Aged Out No longer eligible based on patient's age to complete this topic Care Teams Breast Buffer Relationship Specialty Start Date End Date Casandra Mars MD [address] [place] [address] , [address] [facility] D/B/A: [facility] Internal Medicine ISABELLE Valles PCP - General Internal Medicine 01/07/18
[2024-12-02 15:55] VITALS: BP 110/70; BMI 22.0
== END 2024-12-02 16:49 | disposition home or self-care (01) ==
PROVIDERS: PCP Internal Medicine; Visit Provider Internal Medicine
DX: Z00.00 Encounter for general adult medical examination without abnormal findings (principal); M79.641 Pain in right hand; Z23 Encounter for immunization

== ENCOUNTER → 2024-12-02 15:48 | Outpatient (BNVA) | payer OTHER, SELFPAY | PROVIDERS: PCP Internal Medicine; Visit Provider Internal Medicine | DX: Z00.01 Encounter for general adult medical examination with abnormal findings (principal); Z23 Encounter for immunization; M79.641 Pain in right hand; D64.9 Anemia, unspecified; E55.9 Vitamin D deficiency, unspecified | CPT/HCPCS: 90471; 90715; 96127; 99212; 99395 ==

== ENCOUNTER 2025-01-07 08:50 | Outpatient (REF) | payer OTHER, SELFPAY ==
--- NOTE | 2025-01-07 08:55 | EMG_ITS ---
Chief complaint: Right pain and tingling on ulnar wrist area Reason for referral: Evaluate for ulnar neuropathy Referred by: King JOHNSON Procedure done: Right upper extremity NCS/EMG Precautions and/or limitations: None The limb temperature was monitored continuously and remained between 32-36 degrees C during the performance of the NCS. Nerve Conduction Studies Anti Sensory Summary Table ?Stim Site NR Onset (ms) Norm Onset (ms) Peak (ms) Norm Peak (ms) O-P Amp (?V) Norm O-P Amp Site1 Site2 Delta-0 (ms) Dist (cm) Myron (m/s) Norm Myron (m/s) Right Median Anti Sensory (2nd Digit) Wrist ? 2.4 3.2 <3.6 63.5 >10 Wrist 2nd Digit 2.4 14.0 58 Right Ulnar Anti Sensory (5th Digit) Wrist ? 2.3 3.1 <3.7 63.9 >15.0 Wrist 5th Digit 2.3 14.0 61 Motor Summary Table ?Stim Site NR Onset (ms) Norm Onset (ms) O-P Amp (mV) Norm O-P Amp iAmp (mV) Amp (1st) (%) Site1 Site2 Delta-0 (ms) Dist (cm) Myron (m/s) Norm Myron (m/s) Right Median Motor (Abd Poll Brev) Wrist ? 3.2 <3.9 11.9 >4.5 14.8 100.0 Elbow Wrist 3.3 19.0 58 >45 Elbow ? 6.5 12.2 15.4 102.5 Right Ulnar Motor (Abd Dig Minimi) Wrist ? 2.7 <3.0 11.2 >5 14.7 100.0 B Elbow Wrist 2.9 18.0 62 >45 B Elbow ? 5.6 11.2 14.7 100.0 A Elbow B Elbow 1.0 10.0 100 >45 A Elbow ? 6.6 11.6 15.3 103.6 Comparison Summary Table ?Stim Site NR Peak (ms) Norm Peak (ms) P-T Amp (?V) Site1 Site2 Delta-P (ms) Norm Delta (ms) Right Median/Radial Dig I Comparison (Digit 1 - 10cm) Median ? 2.3 <2.9 109.1 Median Radial 0.1 Radial ? 2.4 <2.8 38.9 EMG ?Side Muscle Nerve Root Ins Act Fibs Psw Amp Dur Poly Recrt Int Pat Comment Right 1stDorInt Ulnar C8-T1 Nml Nml Nml Nml Nml 0 Nml Complete Right FlexCarRad Median C6-7 Nml Nml Nml Nml Nml 0 Nml Complete Right Biceps Musculocut C5-6 Nml Nml Nml Nml Nml 0 Nml Complete Right Triceps Radial C6-7-8 Nml Nml Nml Nml Nml 0 Nml Complete Right Deltoid Axillary C5-6 Nml Nml Nml Nml Nml 0 Nml Complete FINDINGS: All motor and sensory nerves tested showed normal latencies, amplitudes and conduction velocities. Concentric needle EMG was performed in selected muscles of the right upper extremity. Study did not reveal signs of electric abnormalities as shown in the table above. IMPRESSION: 1. This is a normal study. 2. There is no electrodiagnostic evidence for median neuropathy, ulnar neuropathy, brachial plexopathy, or cervical radiculopathy. Thank you for your kind referral. Capri Silva MD, LINN Board Certified, [place] Board [employer] and Rehabilitation (ABPMR) Board Certified, [place] Board of Electrodiagnostic Medicine (ABEM) CODIN [address] MTDD
[2025-01-07 09:02] LABS: MANUAL DIFF FLAG NO
--- OUTSIDE RECORDS SUMMARY | 2025-01-07 09:24 | XMS_ITS ---
Author Name [facility] Unknown Encounters Encounter Type Encounter Reason Primary Diagnosis Location Date Emergency COVID-19 [facility] 07/03/2022 Care Team Organization Name Specialty Phone Email Start Date End Da te [facility] Primary Care 07/03/20222021 [facility] 07/03/2022
--- OUTSIDE RECORDS SUMMARY | 2025-01-07 09:24 | XMS_ITS | Clinical Summary ---
Author Organization [facility] Address [address] [place] [address] Care Team Providers Care Non Ferrous Material Handler Name Role Phone Unavailable Primary Care Provider [...] (2 - Td or Tdap) 12/03/2023 014 [id number] (3 - 2023- season) 2024 021, 02/01/2021 Imm-Influenza (#1) 2024 08/05/2019, 08/20/2017 Cervical Ablation/Cold-Knife Conization Discontinued Cervical Cryotherapy Discontinued Colposcopy Discontinued Endometrial Biopsy Discontinued Excision/Leep Discontinued HPV Genotyping Discontinued Vaginal Pap Discontinued Vulvoscopy Discontinued Insurance [employer] PLAN Member Subscriber Plan / Payer (Ef fective 2021-Present) Name:Ora Hernandez Relation to Subscriber:Self Name:Ora Hernandez Payer ID:[id number] Group ID:[id number] Type:Medicaid Address: [facility] [address] [place] [address]
--- OUTSIDE RECORDS SUMMARY | 2025-01-07 09:24 | XMS_ITS | Clinical Summary ---
Author Organization [address] [place] [address] [place] [id number] Phone Care Team Providers Care Business Support Coordinator Name Role Phone Casandra Mars MD Primary Care Provider [phone] Surgical History Surgery Date Site/Laterality Comments SECTION [...] Date Smoking Tobacco: Never Smokeless Tobacco: Never Comments Unknown Sex and Gender Information Value Date Recorded Sex Assigned at Not on file Legal Sex Female 1:35 AM EST Gender Identity Not on file Sexual Orientation [...] patient's age to complete this topic Meningococcal B Vacine Aged Out No lo nger eligible based on patient's age to complete [...] age to complete this topic Care Teams Business Support Coordinator Relationship Specialty Start Date End Date Casandra Mars MD [address] [place] [address] , [address] [facility] D/B/A: [facility] ISABELLE Valles PCP - General Internal Medicine 01/07/18
--- OUTSIDE RECORDS SUMMARY | 2025-01-07 09:24 | XMS_ITS | Clinical Summary ---
Author Organization [facility] Address [address] [place] [address] Care Team Providers Care Geologist Name Role Phone Casandra Wilson MD Primary Care Provider [phone] Allergies No known active allergies Social History [...] age to complete this topic Care Teams Geologist Relationship Specialty Start Date End Date Casandra Wilson MD [address] [place] [address] PCP - General Family Medicine 07/03/22
[2025-01-07 09:52] LABS: Basophils Absolute Auto 0.1 X10*3/uL (0.0-0.2); Basophils Percent Auto 1.1 % (0-2); Eosinophils Absolute Auto 0.1 X10*3/uL (0.0-0.4); Eosinophils Percent Auto 1.8 % (0-4); Hematocrit 39.7 % (37.0-47.0); Hemoglobin 13.1 g/dl (12.0-16.0); Imm Gran Abs Auto 0.01 X10*3/uL (0.00-0.03); Imm Gran Pct Auto 0.2 % (0.0-0.4); Lymphocytes Absolute Auto 1.6 X10*3/uL (1.2-4.9); Lymphocytes Percent Auto 29.3 % (20-40); Mean Corpuscular Hemoglobin 27.6 pg (27.0-33.0); Mean Corpuscular Volume 83.6 fL (80.0-98.0); Mean Platelet Volume 10.7 fL (9.4-12.3); Monocytes Absolute Auto 0.3 X10*3/uL (0.1-1.2); Monocytes Percent Auto 5.6 % (2-11); Neutrophils Absolute Auto 3.4 x10*3/uL (2.0-8.3); Platelet Count 297 X10*3/uL (160-400); Red Blood Count 4.75 X10*6/uL (4.20-5.50); Red Cell Distribution Width 13.6 % (11.0-16.0); White Blood Count 5.5 X10*3/uL (4.8-10.8)
[2025-01-07 10:50] LABS: Alanine Aminotransferase 19 U/L (0-31); Albumin Level 4.7 g/dL (3.5-5.0); Anion Gap 13 (12-20); Aspartate Amino Transferase 48 U/L (5-31); Bilirubin Total 0.5 mg/dL (0.0-1.0); Blood Urea Nitrogen 9 mg/dL (9-16); Calcium 9.4 mg/dL (8.4-10.2); Carbon Dioxide 22 mmol/L (22-29); Chloride 109 mmol/L (96-108); Cholesterol 164 mg/dL (<200); Estimated Glomerular Filt Rate > 60; Glucose Fasting 115 mg/dL (60-99); HDL Cholesterol 52 mg/dL (>40); Iron 63 mcg/dL (30-160); LDL Cholesterol Calculated 103 mg/dL (<100); Percent Iron Saturation 21 % (15-50); Sodium 140 mmol/L (135-145); Total Iron Binding Capacity 302 mcg/dL (228-428); Total Protein 8.4 g/dL (6.5-8.0); Triglycerides 47 mg/dL (<150); Unsaturated Iron Binding 239 ug/dL; Vitamin D 25-OH Total 9.6 ng/mL (>30)
[2025-01-07 11:19] LABS: Alkaline Phosphatase 70 U/L (39-117)
== END 2025-01-07 08:51 | disposition home or self-care (01) ==
LOC: HO.NEURO 08:50
PROVIDERS: Absent Provider Internal Medicine; PCP Internal Medicine
DX: R20.0 Anesthesia of skin (principal); R20.2 Paresthesia of skin; D64.9 Anemia, unspecified; E55.9 Vitamin D deficiency, unspecified; Z00.00 Encounter for general adult medical examination without abnormal findings
CPT/HCPCS: 36415; 80053; 80061; 82306; 83540; 85025; 95886; 95909

== ENCOUNTER → 2025-01-07 08:55 | Outpatient (BNV) | payer OTHER, SELFPAY | PROVIDERS: Absent Provider Internal Medicine; PCP Internal Medicine; Visit Provider Physical Medicine & Rehabilitation | DX: R20.0 Anesthesia of skin (principal); R20.2 Paresthesia of skin; M25.531 Pain in right wrist | CPT/HCPCS: 95886; 95909 ==

== ENCOUNTER 2025-02-20 10:52 | Outpatient (AMB) | payer OTHER, SELFPAY ==
[2025-02-20 11:02] VITALS: BMI 22.0
--- NOTE | 2025-02-20 11:02 | MHC.OFFVIS ---
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 Patient has tried using hand braces and states this helps. Denies locking of any finger. EMG done on 01/07/25 IMPRESSION: 1. This is a normal study. 2. There is no electrodiagnostic evidence for median neuropathy, ulnar neuropathy, brachial plexopathy, or cervical radiculopathy. 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 Patient has tried using hand braces and states this helps. Denies locking of any finger. EMG done on 01/07/25 IMPRESSION: 1. This is a normal study. 2. There is no electrodiagnostic evidence for median neuropathy, ulnar neuropathy, brachial plexopathy, or cervical radiculopathy. [facility] Medical History Hospital discharge follow-up Acute bronchitis Physical exam Syncope Left ear pain Migraine Surgical History History of section History of tubal ligation Family History Father Asthma Mother No problems noted. 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 Good APB muscle firing and good finger cross. Vascular: Capillary refill brisk. ROM: Patient can make a fist and extend all their digits. Skin: No lacerations or abrasions noted. General: No ecchymosis. No erythema or evidence of infection. Assessment & Plan Assessment & Plan (1) Numbness and tingling in both hands: Code(s): R20.0 - Anesthesia of skin; R20.2 - Paresthesia of skin Category: Medical Plan 1. Numbness and tingling of both hands Intermittent, daily, worse at night Negative EMG Patient is educated about this condition Patient is educated about the typical recovery course At this time, patient was informed that due to having a negative EMG, there is no acute surgical intervention indicated If patient was still experiencing numbness and tingling in 6 months, she should call our office for referral for repeat EMG Patient was amenable to this plan Follow-up as needed Coding Level of Care Code New Pt Level 3 (44845) Diagnoses Numbness and tingling in both hands R20.0; R20.2
--- OUTSIDE RECORDS SUMMARY | 2025-02-20 11:39 | XMS_ITS | Clinical Summary ---
Author Organization [address] [place] [address] [place] [phone] Phone Care Team Providers Care Lead Recoverer Name Role Phone Casandra Mars MD Primary Care Provider [phone] Surgical History Surgery Date Site/Laterality Comments SECTION [...] Cervical Cancer Screening: P ap Smear 2014 COVID-19 Vaccine (2023-2 5 season) 2024 Influenza Vaccine (Season Ended) 2025 HIB Vaccines Aged Out No longer eligi [...] age to complete this topic Meningococcal B Vaccine Aged Out No l onger eligible based on patient's age to complete [...] age to complete this topic Care Teams Lead Recoverer Relationship Specialty Start Date End Date Casandra Mars MD [address] [place] [address] , [address] [facility]ician [facility] D/B/A: [facility] ISABELLE Valles PCP - General Internal Medicine 01/07/18
--- OUTSIDE RECORDS SUMMARY | 2025-02-20 11:39 | XMS_ITS | Clinical Summary ---
Author Organization [facility] Address [address] [place] [address] Care Team Providers Care Head Trimmer Name Role Phone Unavailable Primary Care Provider Unavailabl e Source Comments PLEASE NOTE, if this patient is a minor, it may be UNLAWFUL to discuss sensitive information that is contained in these records (such as FAMILY PLANNING, MENTAL HEALTH or SUBSTANCE ABUSE) with the minor patient's parent or other person without the patient's specific authorization.[facility] Immunizations Immunization Administration Dates Next Due Moderna COVID-19 Vaccine, [...] Health Maintenance Due Date Last Done Comments Anxiety Screening 1993 HPV Screening 1993 Hepatitis C Screening 1993 Pap + HPV 1993 Tobacco Screening 1993 HIV Screening 2008 Relationship Safety Screening/Counseling 2008 Hypertension Screening (#1) 2011 Imm-Hepatitis B (1 of 3 - 19 + 3-dose series) 2012 Cervical Cancer Screening 2014 Pap Smear 2014 Imm-DTaP/Tdap/Td (2 - Td or Tdap) 12/03/2023 014 [id number] ( season) 2024 021, 02/01/2021 Imm-Influenza (#1) 2024 08/05/2019, 08/20/2017 Alcohol and Drug Screen 10/29/2024 Depression Annual Screen 10/29/2024 Cervical Ablation/Cold-Knife Conization Discontinued Cervical Cryotherapy Discontinued Colposcopy Discontinued Endometrial Biopsy Discontinued Excision/Leep Discontinued HPV Genotyping Discontinued Vaginal Pap Discontinued Vulvoscopy Discontinued Insurance [employer] PLAN Member Subscriber Plan / Payer (Ef fective 2021-Present) Name:Ora Hernandez Relation to Subscriber:Self Name:Ora Hernandez Payer ID:[id number] Group ID:[id number] Type:Medicaid Address: [facility] [address] [place] [address]
--- OUTSIDE RECORDS SUMMARY | 2025-02-20 11:39 | XMS_ITS | Clinical Summary ---
Author Organization [facility] Address [address] [place] [address] Care Team Providers Care Winchman/Crane Operator Name Role Phone Casandra Wilson MD Primary Care Provider [phone] Allergies No known active allergies Social History Tobacco Use Types Packs/Day Years Used Date Smoking Tobacco: Never Smokeless Tobacco: Never Comments No Sex and Gender Information Value Date Recorded Sex Assigned at Not on file Legal Sex Female 7:10 PM EST Gender Identity Not on file Sexual [...] 21-65) 2014 Influenza Vaccine 05/29/2024 COVID-19 Vaccine (3 - 2023-2 5 season) 2024 03/01/2021, 02/01/2021 HPV Vaccines Aged Out No longer eligi ble based on patient's age to complete this topic Pneumococcal Vaccine: Pediatric (0-5 Years) and At-Risk Patients (6 to 49 Years) Aged Out No longer eligible b ased on patient's age to complete this topic Insurance [facility] Care Teams Winchman/Crane Operator Relationship Specialty Start Date End Date Casandra Wilson MD [address] [place] [address] PCP - General Family Medicine 07/03/22
== END 2025-02-20 11:21 | disposition home or self-care (01) ==
LOC: HO.HOS 10:53
PROVIDERS: PCP Internal Medicine
DX: R20.0 Anesthesia of skin (principal); R20.2 Paresthesia of skin
CPT/HCPCS: 99203

== ENCOUNTER → 2025-02-20 10:52 | Outpatient (BNVA) | payer OTHER, SELFPAY | PROVIDERS: PCP Internal Medicine | DX: R20.0 Anesthesia of skin (principal); R20.2 Paresthesia of skin | CPT/HCPCS: 99202 ==

== ENCOUNTER 2025-02-25 15:18 | Outpatient (AMB) | payer OTHER, SELFPAY ==
[2025-02-25 15:28] VITALS: BP 110/60; PULSE 72; O2SAT 97; BMI 20.7
--- NOTE | 2025-02-25 15:28 | A.OFFVIS_ITS ---
Vital Signs 02/25/25 15:28 Height 5 ft 3 in Weight 117 lb BMI 20.7 BP 110/60 Pulse 72 Pulse Source Pulse Oximeter Pulse Oximetry (%) 97 Oxygen Delivery Method Room Air Intake Visit Reasons: Follow Up Sand Analyst Required: Yes Sand Analyst Services: Sand Analyst Offered & Declined Accompanied by: Self / Same As Patient Allergies No Known Allergies [No Known Allergies*] Allergy (Verified 02/25/25 15:29) Medication List - Last Reconciled 02/25/25 by LUBNA Pantoja cholecalciferol (vitamin D3) 50 mcg PO DAILY 90 days galcanezumab-gnlm (Emgality Pen) 120 mg subcut ONCE 30 days midodrine 5 mg PO TID 90 days rizatriptan 5 - 10 mg (0.5 - 1 x 10 mg) PO Q2H PRN 21 days HPI Comments Details: 29-yr-old female presents for f/u visit for migraine and syncope. Pt is accompanied by her dtr. Pt denies any significant interval medical changes. She denies interval syncope. Complaint w/ Midodrine 5mg tid and increased fluids. Since the last visit, patient has started Emgality which she states has been effective and well tolerated. She is now having 1-2 migraine days per week. Rizatriptan is helpful but causes bothersome nausea despite using Zofran. Baseline headache characteristics: Starts frontal and moves into holocranial, pounding pain, a/w photophobia, phonophobia, nausea. The migraine usually starts around 5pm until she goes to bed. [facility] Medical History Hospital discharge follow-up Acute bronchitis Physical exam Syncope Left ear pain Migraine Surgical History History of section History of tubal ligation Family History Father Asthma Mother No problems noted. 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 Current occupational exposures/hazards: No Cognitive needs: No Hearing needs: No Vision needs: No Female Reproductive History Menstrual Age of Menarche: 11 Physical Exam Vital Signs: Last Vital Signs Pulse 72 02/25/25 15:28 BP 110/60 02/25/25 15:28 Pulse Ox 97 02/25/25 15:28 Oxygen Delivery Method Room Air 02/25/25 15:28 BMI result Body Mass Index 20.7 Const General: cooperative and no acute distress Orientation/consciousness: patient oriented x3 Resp Effort & Inspection: normal respiratory effort and able to speak in complete sentences Neuro General: patient oriented x3 Cranial nerves: Yes CN's II-XII intact bilaterally Cognition (Neuro): normal cognition Psych Appearance: grossly normal Mental Status: mental status grossly normal Speech and movement: Normal speech and movement present Affect: normal affect Attitude: cooperative Assessment & Plan Assessment & Plan (1) Migraine without aura: Code(s): G43.009 - Migraine without aura, not intractable, without status migrainosus Category: Medical Qualifiers: Status migrainosus presence: without status migrainosus Intractability: not intractable Qualified Code(s): G43.009 - Migraine without aura, not intractable, without status migrainosus (2) Neurocardiogenic syncope: Comment: tilt-table test (February 2023 at [facility]): cardioinhibitory and vasodepressive response Code(s): R55 - Syncope and collapse Category: Medical Plan For syncope: Tilt-table test- neurocardiogenic syncope w/ cardioinhibitory and vasodepressive response- pt had syncopal episode a/w significant hypotension and bradycardia. Continue Midodrine 5mg tid Continue increased fluids and salt If symptoms worsen, we can refer back to cardiology. ? For migraine prevention tx: Continue Mag and B2 for prevention. Continue Emgality 120mg/ml auto-injection maintenance dose: 120mg (120mg/ml autoinjector) subcutaneous injection every month, as patient has had greater than 50% reduction in monthly migraine days since beginning Emgality. Previous migraine prevention trials: Amitriptyline- did not tolerate. Topiramate 25-50mg qhs- not tolerated Contraindications- all anti-HTN agents d/t h/o syncope, hypotension and bradycardia. For acute migraine tx: Discontinue rizatriptan 10mg prn order-as this is not tolerated due to bothersome nausea. Continue ondansetron 4mg q8hrs prn N/V. Trial Ubrogepant (Ubrelvy) 100mg tab, 1/2 - 1 tab (50-100mg) at onset of headache, may repeat in 2 hours. Max of 2 tabs (200mg) per 24 hours. May adjunct with OTC Tylenol 650mg q 4 hours, Ibuprofen 600mg q 6 hours, or Naproxen 440mg q 12 hrs prn. Potential adverse effects, include but are not limited to fatigue, nausea, dry mouth, constipation. Patient does have a history of mildly elevated LFTs thought to be due to cho lestasis of - this is not a contraindication to Ubrelvy use. The would not expect see any impact on LFTs, will check CBC and CMP in 3 months after starting Ubrelvy. Previous acute migraine tx trials- Sumatriptan- effective, but causes nausea. Rizatriptan- effective, but causes nausea. ? f/u in 6 months or sooner prn Orders: Orders Complete Blood Count Auto Diff Today G43.909 - Migraine, unspecified, not intractable, without status migrainosus, R94.5 - Abnormal results of liver function studies Comprehensive Met. Panel Today G43.909 - Migraine, unspecified, not intractable, without status migrainosus, R94.5 - Abnormal results of liver function studies Medications: New ubrogepant (Ubrelvy) take at onset of migraine, may repeat in 2hrs (may take w/ Ibuprofen) 50 - 100 mg (0.5 - 1 x 100 mg) PO ONCE 30 days PRN 16 tabs 3RF migraine headache Coding Level of Care Code Est Pt Level 4 (50614) Diagnoses Migraine without aura and without status migrainosus, not intractable G43.009 Status migrainosus presence: without status migrainosus Intractability: not intractable Neurocardiogenic syncope R55
--- OUTSIDE RECORDS SUMMARY | 2025-02-25 16:18 | XMS_ITS | Clinical Summary ---
Author Organization [facility] Address [address] [place] [address] Care Team Providers Care Water Reuse Program Manager Name Role Phone Casandra Mars MD Primary Care Provider Marie yadav Allergies No known active allergies Medications Medication Sig Dispensed Refills Start Date End Date Status sumatriptan (IMITREX) 25 MG tablet Take 25 mg by mouth as needed. May repeat dose once after 2 hours, if needed. 0 Active adapalene (DIFFERIN) 0.1 % gel Apply qhs 45 g 5 09/03/2017 Active tretinoin (RETIN-A) 0.025 % cream Apply small amount QHS 45 g 5 11/05/2017 Active triamcinolone acetonide (KENALOG) 10 MG/ML injection Inject 1 mL into the skin once for 1 dose. 0.05 mL injected into 2 individual hypertrophic lesions on right thorax. 0.1 mL 0 01/08/2018 Active Doxycycline Hyclate 50 MG Tab Take 1 Tab by mouth 2 times daily. 10 Tab 3 05/09/2018 Active Active Problems Problem Noted Date Migraine 07/16/2017 Abscess of skin 07/16/2017 Overview: recurrent Breast pain 07/16/2017 Family History Medical History Relation Name Comments Asthma Maternal Grandfather Cancer of the Lung Uncle paternal Relation Name Status Comments Maternal Grandfather Uncle paternal Alive Social History Tobacco Use Types Packs/Day Years Used Date Smoking Tobacco: Never Smokeless Tobacco: Never Sex Assigned at Date Recorded Not on file Last Filed Vital Signs Vital Sign Reading Time Taken Comments Blood Pressure 104/70 09/09/2018 3:33 PM EST Pulse 68 09/09/2018 3:33 PM EST Temperature - - Respiratory Rate 14 09/03/2017 9:59 AM EST Oxygen Saturation - - Inhaled Oxygen Concentration - - Weight 51.7 kg (114 lb) 09/09/2018 3:33 PM EST Height 160 cm (5' 3 ) 05/09/2018 8:42 AM EDT Body Mass Index 20.19 05/09/2018 8:42 AM EDT Plan of Treatment Health Maintenance Due Date Last Done Comments Covid-19 Vaccine (#1) 06/17/1994 BASELINE HEALTH EXAM 18-39 2012 DTAP/TDAP/TD (1 - Tdap) 2012 CHOLESTEROL SCREENING 2013 CERVICAL CANCER SCREENING 2014 DEPRESSION SCREENING/FOLLOWUP 10/29/2024 SOCIAL NEEDS SCREENING 10/29/2024 INFLUENZA (Season Ended) 2025 PNEUMOCOCCAL VACCINE FOR HIGH RISK PATIENTS (#1) 12/18 Care Teams Water Reuse Program Manager Relationship Specialty Start Date End Date Casandra Mars MD PCP - General Internal Medicine 01/07/18
--- OUTSIDE RECORDS SUMMARY | 2025-02-25 16:18 | XMS_ITS | Clinical Summary ---
Author Organization [address] [place] [address] [place] [phone] Phone Care Team Providers Care Aquaculture Director Name Role Phone Casandra Mars MD Primary Care Provider [phone] Surgical History Surgery Date Site/Laterality Comments SECTION [...] age to complete this topic Care Teams Aquaculture Director Relationship Specialty Start Date End Date Casandra Mars MD [address] [place] [address] , [address] [facility] D/B/A: [facility] ISABELLE Valles PCP - General Internal Medicine 01/07/18
--- OUTSIDE RECORDS SUMMARY | 2025-02-25 16:18 | XMS_ITS | Encounter Summary ---
Author Organization [facility] Address [address] [place] [address] Care Team Providers Care Auto Parts Handler Name Role Phone Community, Pcp Primary Care Provider Casandra Lynn MD Primary Care Provider Marie yadav Encounter Details Date Type Department Care Team Description 07/09/2017 Release of Information Medical Records [address] [place] [id number] Abstract, Provider Social History Tobacco Use Types Packs/Day Years Used Date Smoking Tobacco: Never Assessed Sex Assigned at Date Recorded Not on file documented as of this encounter Plan of Treatment Not on file documented as of this encounter Visit Diagnoses Not on filedocumented in this encounter Care Teams Auto Parts Handler Relationship Specialty Start Date End Date Community, Pcp PCP - General Internal Medicine 04/25/17 01/06/18 Casandra Mars MD PCP - General Internal Medicine 01/07/18 documented as of this encounter
--- OUTSIDE RECORDS SUMMARY | 2025-02-25 16:18 | XMS_ITS | Encounter Summary ---
Author Organization [facility] Address [address] [place] [address] Care Team Providers Care Medical Technologist Blood Bank Name Role Phone Casandra Mars MD Primary Care Provider Marie yadav Encounter Details Date Type Department Care Team Description 01/08/2018 Telephone Dermatology - [address] [phone] Lynne Kim PA-C Social History Tobacco Use Types Packs/Day Years Used Date Smoking Tobacco: Never Sex Assigned at Date Recorded Not on file documented as of this encounter Miscellaneous Notes * Telephone Encounter - Ally Andersen [place] - 01/08/2018 10:14 AM EDT P/A for tretinoin done through covermymeds, waiting on response documented in this encounter Plan of Treatment Not on file documented as of this encounter Visit Diagnoses Not on filedocumented in this encounter Care Teams Medical Technologist Blood Bank Relationship Specialty Start Date End Date Casandra Mars MD PCP - General Internal Medicine 01/07/18 documented as of this encounter
--- OUTSIDE RECORDS SUMMARY | 2025-02-25 16:18 | XMS_ITS | Clinical Summary ---
Author Organization [facility] Address [address] [place] [address] Care Team Providers Care Park Superintendent Name Role Phone Unavailable Primary Care Provider [...] (2 - Td or Tdap) 12/03/2023 014 [id number] ( season) 2024 021, 02/01/2021 Imm-Influenza (#1) 2024 08/05/2019, 08/20/2017 Alcohol and Drug Screen 10/29/2024 Depression Annual Screen 10/29/2024 Cervical Ablation/Cold-Knife Conization Discontinued Cervical Cryotherapy Discontinued Colposcopy Discontinued Endometrial Biopsy Discontinued Excision/Leep Discontinued HPV Genotyping Discontinued Vaginal Pap Discontinued Vulvoscopy Discontinued Insurance [employer] PLAN Member Subscriber Plan / Payer (Ef fective 2021-Present) Name:Ora Hernandez Relation to Subscriber:Self Name:Ora Hernandez Payer ID:[id number] Group ID:[id number] Type:Medicaid Address: [facility] [address] [place] [address]
--- OUTSIDE RECORDS SUMMARY | 2025-02-25 16:18 | XMS_ITS | Clinical Summary ---
Author Organization [facility] Address [address] [place] [address] Care Team Providers Care Integrated Circuit Design Engineer Name Role Phone Casandra Wilson MD Primary Care Provider [phone] Allergies No known active allergies Social History [...] patient's age to complete this topic Insurance [facility] Care Teams Integrated Circuit Design Engineer Relationship Specialty Start Date End Date Casandra Wilson MD [address] [place] [address] PCP - General Family Medicine 07/03/22
== END 2025-02-25 15:53 | disposition home or self-care (01) ==
LOC: HO.HSMS 15:19
PROVIDERS: PCP Internal Medicine; Visit Provider Nurse Practitioner Family
DX: G43.009 Migraine without aura, not intractable, without status migrainosus (principal); R55 Syncope and collapse
CPT/HCPCS: 99214

== ENCOUNTER → 2025-02-25 15:18 | Outpatient (BNVA) | payer OTHER, SELFPAY | PROVIDERS: PCP Internal Medicine; Visit Provider Nurse Practitioner Family | DX: G43.009 Migraine without aura, not intractable, without status migrainosus (principal); R55 Syncope and collapse | CPT/HCPCS: 99212 ==

== ENCOUNTER 2025-08-27 15:23 | Outpatient (AMB) | payer OTHER, SELFPAY ==
[2025-08-27 15:25] VITALS: BP 98/60; PULSE 86; O2SAT 98; BMI 22.5
--- NOTE | 2025-08-27 15:25 | MHC.OFFVIS ---
Vital Signs 08/27/25 15:25 Height 5 ft 3 in Weight 127 lb 4 oz BMI 22.5 BP 98/60 Blood Pressure Location Lt brachial Position Sitting Pulse 86 Pulse Source Pulse Oximeter Pulse Oximetry (%) 98 Oxygen Delivery Method Room Air Intake Visit Reasons: 6 mo follow up Intake Note: Follow up Migraine Financial Sales Manager Required: Yes Financial Sales Manager Services: Financial Sales Manager Present Financial Sales Manager Name: Pushpa Fall ID:[id number] Accompanied by: Spouse Allergies No Known Allergies (No Known Allergies*) Allergy (Verified 08/27/25 15:38) Medication List - Last Reconciled 08/27/25 by LUBNA Pantoja cholecalciferol (vitamin D3) 50 mcg PO DAILY 90 days galcanezumab-gnlm (Emgality Pen) 120 mg subcut Q30D 30 days midodrine 5 mg PO TID 90 days ubrogepant (Ubrelvy) 50 - 100 mg (0.5 - 1 x 100 mg) PO Q2H PRN 30 days MDD 200 mg HPI Comments Details: 29-yr-old female presents for f/u visit for migraine and syncope. Pt is accompanied by her partner Pt denies any significant interval medical changes. She denies interval syncope. Complaint w/ Midodrine 5mg tid and increased fluids. Patient reports her migraines are much better since starting Emgality. She reports she is experiencing 3-4 migraine attacks per month. She reports she is tolerating Emgality well. She reports she received Ubrelvy, as her pharmacy stated a required insurance authorization despite insurance had authorized Ubrelvy through 08/25/2025. Thus, she is using Excedrin as needed, with minimal effect. Baseline headache characteristics: Starts frontal and moves into holocranial, pounding pain, a/w photophobia, phonophobia, nausea. [facility] Medical History Hospital discharge follow-up Acute bronchitis Physical exam Syncope Left ear pain Migraine Surgical History History of section History of tubal ligation Family History Father Asthma Mother No problems noted. 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 Current occupational exposures/hazards: No Cognitive needs: No Hearing needs: No Vision needs: No Female Reproductive History Menstrual Age of Menarche: 11 Physical Exam Vital Signs: Last Vital Signs Pulse 86 08/27/25 15:25 BP 98/60 08/27/25 15:25 Pulse Ox 98 08/27/25 15:25 Oxygen Delivery Method Room Air 08/27/25 15:25 BMI result Body Mass Index 22.5 Const General: cooperative and no acute distress Orientation/consciousness: patient oriented x3 Resp Effort & Inspection: normal respiratory effort and able to speak in complete sentences Neuro General: patient oriented x3 Cranial nerves: Yes CN's II-XII intact bilaterally Cognition (Neuro): normal cognition Psych Appearance: grossly normal Mental Status: mental status grossly normal Speech and movement: Normal speech and movement present Affect: normal affect Attitude: cooperative Assessment & Plan Assessment & Plan (1) Migraine without aura: Code(s): G43.009 - Migraine without aura, not intractable, without status migrainosus Category: Medical Qualifiers: Status migrainosus presence: without status migrainosus Intractability: not intractable Qualified Code(s): G43.009 - Migraine without aura, not intractable, without status migrainosus (2) Neurocardiogenic syncope: Comment: tilt-table test (February 2023 at [facility]): cardioinhibitory and vasodepressive response Code(s): R55 - Syncope and collapse Category: Medical Plan For syncope: Tilt-table test- neurocardiogenic syncope w/ cardioinhibitory and vasodepressive response- pt had syncopal episode a/w significant hypotension and bradycardia. Continue Midodrine 5mg tid Continue increased fluids and salt If symptoms worsenrecu or r, worsen we can refer back to cardiology. ? For migraine prevention tx: Continue Mag and B2 for prevention. Continue Emgality 120mg/ml auto-injection maintenance dose: 120mg (120mg/ml autoinjector) subcutaneous injection every month, as patient continues to have greater than 50% reduction in monthly migraine days since beginning Emgality. Previous migraine prevention trials: Amitriptyline- did not tolerate. Topiramate 25-50mg qhs- not tolerated Contraindications- all anti-HTN agents d/t h/o syncope, hypotension and bradycardia. For acute migraine tx: Discontinue rizatriptan 10mg prn order-as this is not tolerated due to bothersome nausea. Continue ondansetron 4mg q8hrs prn N/V. Patient is again advised to trial Ubrogepant, unfortunately her current Prior authorization has , and this we will need to request a new Prior authorization. Start Ubrogepant (Ubrelvy) 100mg tab, 1/2 - 1 tab (50-100mg) at onset of headache, may repeat in 2 hours. Max of 2 tabs (200mg) per 24 hours. May adjunct with OTC Tylenol 650mg q 4 hours, Ibuprofen 600mg q 6 hours, or Naproxen 440mg q 12 hrs prn. Potential adverse effects, include but are not limited to fatigue, nausea, dry mouth, constipation. Patient does have a history of mildly elevated LFTs thought to be due to cholestasis of - this is not a contraindication to Ubrelvy use. Therefore, would not expect see any impact on LFTs. However ,will check CBC and CMP 3 months after starting Ubrelvy. Previous acute migraine tx trials- Sumatriptan- effective, but causes nausea. Rizatriptan- effective, but causes nausea. ? f/u in 6 months or sooner prn Medications: Changed From ubrogepant (Ubrelvy) take at onset of migraine, may repeat in 2hrs (may take w/ Ibuprofen). Prior Auth;Coverage Start Date:02/26/2025;Coverage End Date:08/25/2025 50 - 100 mg (0.5 - 1 x 100 mg) PO ONCE PRN 16 tabs 6RF migraine headache 30 days To ubrogepant (Ubrelvy) 50 - 100 mg (0.5 - 1 x 100 mg) PO Q2H PRN 16 tabs 6RF migraine headache 30 days MDD 200 mg Refilled midodrine 5 mg PO TID 270 tabs 3RF 90 days Discontinued rizatriptan max 2 tabs per day or 4 tabs per week Discontinued Reason: Doctor's Order 5 - 10 mg (0.5 - 1 x 10 mg) PO Q2H 21 days PRN 12 tabs 3RF migraine headache Coding Level of Care Code Est Pt Level 4 (86306) Diagnoses Migraine without aura and without status migrainosus, not intractable G43.009 Status migrainosus presence: without status migrainosus Intractability: not intractable Neurocardiogenic syncope R55
--- OUTSIDE RECORDS SUMMARY | 2025-08-27 17:58 | XMS_ITS | Clinical Summary ---
Author Organization [address] [place] [address] [place] [id number] Phone Care Team Providers Care Drop Hammer Operator Helper Name Role Phone Casandra Mars MD Primary Care Provider [phone] Surgical History Surgery Date Site/Laterality Comments SECTION [...] Cervical Cancer Screening: P ap Smear 2014 HPV Vaccines (1 - 3-dose SCD M series) 2020 Depression Screening 10/29/2024 COVID-19 Vaccine ( - 2023-2 5 season) 2025 Influenza Vaccine (#1) 2025 RSV Immunization Adult Patie nts (1 - 1-dose 75+ series) 2068 HIB Vaccines Aged Out No longer eligi [...] 5 Years) and At-Risk Patients (6 to 49 Years) Aged Out No longer eligible b ased on patient's age to complete this topic RSV Immunization Patients Un cliff 20 months Aged Out No longer eligible b ased on patient's age to complete this topic Varicella Vaccines Aged Out No longer eligible based on patient's age to complete this topic Care Teams Drop Hammer Operator Helper Relationship Specialty Start Date End Date Casandra Mars MD [address] [place] [address] , [address] Physician Associ D/B/A: [facility] ISABELLE Valles PCP - General Internal Medicine 01/07/18
--- OUTSIDE RECORDS SUMMARY | 2025-08-27 17:58 | XMS_ITS ---
Author Name [facility] Organization Unknown Encounters Encounter Type Encounter Reason Primary Diagnosis Location Date Emergency COVID-19 [facility] 07/03/2022 Care Team Organization Name Specialty Phone Email Start Date End Da te [facility] Primary Care 07/03/20222021 [facility] 07/03/2022
--- OUTSIDE RECORDS SUMMARY | 2025-08-27 17:58 | XMS_ITS | Clinical Summary ---
Author Organization [facility]ly [facility] Address [address] [place] [address] Care Team Providers Care Air Sealing Technician Name Role Phone Casandra Wilson MD Primary Care Provider [phone] Allergies No known active allergies Social History [...] 94 07/03/2022 3:33 PM EDT Temperature 37.1 C (98.8 F) 07/03/2022 3:33 PM EDT Respiratory Rate 18 07/03/2022 3:33 PM EDT [...] Pap Smear (Ages 21-65) 2014 Influenza Vaccine 05/29/2025 COVID-19 Vaccine (3 - 2024-2 6 season) 2025 03/01/2021, 02/01/2021 HPV Vaccines (No Doses Required) Completed Pneumococcal Vaccine: Pediatric (0-5 Years) and At-Risk Patients (6 to 49 Years) Aged Out No longer eligible b ased on patient's age to complete this topic Insurance [facility] Care Teams Air Sealing Technician Relationship Specialty Start Date End Date Casandra Wilson MD [address] [place], [place] [id number] PCP - General Family Medicine 07/03/22
--- OUTSIDE RECORDS SUMMARY | 2025-08-27 17:58 | XMS_ITS | Encounter Summary ---
Author Organization Formerly [facility] Address [address] [place] [address] Care Team Providers Care Immunology Specialist Name Role Phone Community, Pcp Primary Care Provider Casandra Lynn MD Primary Care Provider Marie yadav Encounter Details Date Type Department Care Team Description 07/09/2017 Release of Information Medical Records [address] [place] [id number] Abstract, Provider Social History Tobacco Use Types Packs/Day Years Used Date Smoking Tobacco: Never Assessed Sex Assigned at Date Recorded Not on file documented as of this encounter Plan of Treatment Not on file documented as of this encounter Visit Diagnoses Not on filedocumented in this encounter Care Teams Immunology Specialist Relationship Specialty Start Date End Date Community, Pcp PCP - General Internal Medicine 04/25/17 01/06/18 Casandra Mars MD PCP - General Internal Medicine 01/07/18 documented as of this encounter
--- OUTSIDE RECORDS SUMMARY | 2025-08-27 17:58 | XMS_ITS | Clinical Summary ---
Author Organization [facility] Address [address] [place] [address] Care Team Providers Care Final Assembly Inspector Name Role Phone Casandra Mars MD Primary [...] SCREENING/FOLLOWUP 10/29/2024 SOCIAL NEEDS SCREENING 10/29/2024 INFLUENZA (#1) 2025 PNEUMOCOCCAL VACCINE FOR HIGH RISK PATIENTS (#1) 12/18 Care Teams Final Assembly Inspector Relationship Specialty Start Date End Date Casandra Mars MD PCP - General Internal Medicine 01/07/18
== END 2025-08-27 16:16 | disposition home or self-care (01) ==
LOC: HO.HSMS 15:23
PROVIDERS: PCP Internal Medicine; Visit Provider Nurse Practitioner Family
DX: G43.009 Migraine without aura, not intractable, without status migrainosus (principal); R55 Syncope and collapse
CPT/HCPCS: 99214

== ENCOUNTER → 2025-08-27 15:23 | Outpatient (BNVA) | payer OTHER, SELFPAY | PROVIDERS: PCP Internal Medicine; Visit Provider Nurse Practitioner Family | DX: G43.009 Migraine without aura, not intractable, without status migrainosus (principal); R55 Syncope and collapse; Z79.899 Other long term (current) drug therapy | CPT/HCPCS: 99212 ==